=== PATIENT | male | born 1970 | race Caucasian/White ===

== ENCOUNTER 2025-02-18 10:45 | Outpatient (RCR) | payer MEDICAID, SELFPAY ==
[2025-02-04 10:13] VITALS: BP 122/78; PULSE 116; RESP 18; TEMP 36.2; BMI 31.4
--- NOTE | 2025-02-04 12:10 | RAD_ITS ---
EXAM: Left foot radiographs, three views CLINICAL HISTORY: Osteomyelitis. Nonhealing wound medial heel region. COMPARISON: None available TECHNIQUE: Three views of the left foot were obtained. FINDINGS: The bones are osteopenic. Included distal left tibia/fibula are intact. There is chronic appearing fracture deformity of the proximal left 2nd metatarsal. Mild degenerative changes of the interphalangeal joints. No gross bony destructive process or acute fracture of the left foot. Small plantar calcaneal spur. There is suggestion of some air densities projecting over the soft tissues near the plantar margin of the calcaneus and plantar calcaneal spur. RAD/Foot min 3 Views IMPRESSION: Osteopenia. No acute bony abnormality or gross bony destructive process of the left foot. Chronic appearing fracture deformity proximal left 2nd metatarsal. Degenerativ e changes as above. There appear to be some air density projecting over the plantar soft tissues ne ar the left heel region/plantar calcaneal spur. This could potentially be due to gas producing infection or recent penetrating injury. Chest correlation with clinical exam findings. If there is clinical concern for osteomyelitis, MRI evaluation would be suggested. Reading Location: [facility]
--- NOTE | 2025-02-04 13:42 | HP.PCM_ITS ---
History of Present Illness Date of Service: 02/04/25 Chief Complaint: Left medial heel ulceration History of Wound: Patient is a 54-year-old male who was referred to the wound care center by his PCP in [place] for a chronic left medial heel ulceration. Patient states that the ulceration has waxed and waned for 25 years following an old injury to his left foot in which steel sheet-metal was dropped onto his foot and ankle. He did undergo reconstructive surgery at that time to fixated despite initial physician recommendation of BKA. 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 Patient also apparently has had long discussions with his primary care about the possibility of needing bypass to establish blood flow to heal the wound and would need a multiple specialist [facility] in [facility] to achieve healing. Patient also has limitations not wanting to get blood products he needs for major surgery. Patient did have labs performed in [place] prior to visit. States that he had previously was on doxycycline and had completed this. He denies any N/V/F/chills. Denies further complaints. [facility] Home Medications ?Medication ?Instructions ?Recorded ?Last Taken ?Type aspirin 81 mg tablet,delayed 81 mg PO DAILY 02/04/25 U nknown History release diltiazem HCl 240 mg 240 mg PO DAILY 02/04/25 Unk nown History capsule,extended release 24 hr hydrochlorothiazide 25 mg tablet 25 mg PO DAILY Unknown History insulin glargine 100 unit/mL (3 20 unit subcut QHS 08/21 Unknown History mL) subcutaneous pen (Lantus Solostar U-100 Insulin) insulin lispro 100 unit/mL subcut 02/04/25 Unknown His tory subcutaneous pen metformin 1,000 mg tablet 1,000 mg PO BID 02/04/25 Unk nown History metoprolol tartrate 25 mg tablet 25 mg PO BID 02/04/25 Unknown History Allergy/AdvReac Type Severity Reaction Status Date / Time lisinopril Allergy Other Verified 02/04/25 10:34 Social History Smoking Status: Current every day smoker ROS Constitutional Constitutional: Denies anorexia, chills or fever(s) Eyes Eyes: Denies blurry vision, change in vision or double vision ENT HEENT: Denies dysphagia, nasal discharge, sinus pressure or sore throat Cardiovascular Cardiovascular: Denies chest pain, dyspnea or palpitations Respiratory/Chest Respiratory/Chest: Denies cough, shortness of breath at rest or wheezing Gastrointestinal Gastrointestinal: Denies abdominal pain, constipation, diarrhea, nausea or vomiting Genitourinary Genitourinary: Denies dysuria, hematuria, urinary hesitancy or urinary incontinence Musculoskeletal Musculoskeletal: Denies joint pain, joint stiffness or joint swelling Integumentary Integumentary: Denies jaundice, lesions, pruritus or rash Neurologic Neurologic: Denies dizziness, numbness or seizures Psychiatric Psychiatric: Denies anxiety Endocrine Endocrinology: Denies cold intolerance or heat intolerance Hematologic/Lymphatic Hematologic/Lymphatic: Denies easy bleeding or easy bruising Vital Signs Vital Signs Vital Signs: 02/04/25 10:13 Temperature 97.1 F L Temperature Source Temporal Pulse Rate 116 H Respiratory Rate 18 Blood Pressure 122/78 H Blood Pressure Mean 92 Blood Pressure Source Monitor Blood Pressure Position Semi-Fowlers Blood Pressure Location Left Arm Oxygen Delivery Method Room Air Weight Weight: 88.451 kg Body Mass Index (BMI) 31.4 Physical Exam Const alert, oriented x3 and no apparent distress General Appearance: cooperative HEENT normocephalic Eyes General Eye: normal appearance of both eyes Neck General: normal visual inspection Lymph Lymphatic: no lymphadenopathy noted and no lymphedema noted Resp normal respiratory effort Cardio regular rate and regular rhythm Extremity no calf tenderness Extremity Narrative: Left lower extremity: Vascular: DP and PT pulses nonpalpable. Monophasic pulses on Doppler. CFT is delayed and sluggish to digits. Normal temperature gradient. Pedal hair growth is diminished at digits. Neurologic: Gross sensation intact. Protective sensation is diminished consistent with diabetic peripheral polyneuropathy however does still have some sensation about the heel and ulcerative site. Musculoskeletal: Muscle strength 5 of 5 age-appropriate. There is pain to palpation around the ulcerative site at the calcaneus. No pain to palpation of calf. Dermatologic: There is a cicatrix noted along the medial aspect of the ankle consistent with prior surgical reconstruction following his injury. There is a medial calcaneal wall ulceration that extends to the plantar portion of the fat pad near the calcaneal tubercles. Ulceration is full-thickness with mixed necrotic, fibrotic, and granular portions of the wound. There is malodor noted. No soft tissue crepitus to palpation. No purulent drainage is expressible. Wound margins are macerated secondary to continued use of hydrogen peroxide. Ulcerative site does not probe to bone along the plantar medial wall of the calcaneus. Skin no rashes or lesions noted Neuro moves all extremities Debridement Note Debridement Note Wound debrided: Left medial heel Laterality: Left Wound Grade/Stage: Flores stage III Type of Debridement: Excisional debridement Anesthesia Used: 5% Lidocaine Gel Depth: Down to and including healthy tissue, in the subcutaneous layer, to muscle and to bone Percentage of wound debrided: 100 Instrument Used: 7mm curette, #15 blade and Forceps Tissue Removed: Fibrous, devitalized subcutaneous, necrotic tissue, biofilm, slough Severity: Necrosis of Muscle Amount of bleeding with debridement: Mild Bleeding Controlled with: Compression and gauze Patient tolerated procedure: Patient tolerated procedure well Post-Debridement Measurements and Additional Note: Post-Debridement Measurements/Treatment - Nurse 1 - General Ulcer Assessment Start: 02/04/25 10:13 Freq: Status: Active Protocol: [email or web address].ANA Activity Type Activity Date Activity User E-sign Co-sign Detail Recorded Client Recorded Date Recorded By Document 02/04/25 10:13 KW [id number] 02/04/25 10:32 KW 02/04/25 10:13 - Today's Visit Information Type of service Initial Visit Arrival Mode Ambulatory Patient Identification Verified (Name & Yes ) Height and Weight Height 5 ft 6 in Weight 88.451 kg Weight in Pounds 195.0 lbs Weight Measurement Method Estimated by Patient Body Mass Index (BMI) 31.4 BMI Classification Obese Vital Signs Temperature (97.8 F-99.1 F) 97.1 F L Temperature Source Temporal Pulse Rate (60-100) 116 H Pulse Location Monitor Respiratory Rate (12-18) 18 Respiratory rate source Observation Oxygen Delivery Method Room Air Blood Pressure (90/60-120/80) 122/78 H Blood Pressure Mean 92 Source Monitor Position Semi-Fowlers Blood Pressure Location Left Arm History Since Last Visit- (Skip if this is Patient's initial visit) Left Footwear Regular Shoe Right Footwear Regular Shoe Pain Scale: 0-10 Numeric Is Patient Pain Free? No left foot -Intensity 2 -Alleviating Factors/Interventions Inactivity/ Resting,Turning /Repositioning Lower Extremity Assessment/ Foot Assessment/ Toe Nail Assessment Right -Posterior Tibial Doppler Multiphasic -Dorsalis Pedis Doppler Multiphasic -Hair Growth on Legs Yes -Hair Growth on Toes Yes -Temperature of Extremity Cool -Capillary Refill Less than 3 Seconds -Thick No -Discolored Yes -Deformed No -Improper Length & Hygeine Yes Left -Posterior Tibial Doppler Inaudible -Dorsalis Pedis Doppler Inaudible -Hair Growth on Legs Yes -Hair Growth on Toes No -Temperature of Extremity Cool -Capillary Refill Less than 3 Seconds -Thick No -Discolored Yes -Deformed No -Improper Length & Hygeine Yes Communication Assessment Preferred language Thai Compressed Yeast Supervisor Required No Able to Read Yes Able to Write Yes Communication Tools None Caregiver Communication Skills No Impairment Impairment Right Hearing Abillity Normal Left Hearing Abillity Normal Visual Assistive Devices Glasses Teaching Assessment Preferences Verbal,Written, Demonstration Barriers to Learning None Readiness To Learn Excellent Willingness to Engage in Self Management High Activies Readiness to Engage in Self Management High Activities Anxiety Level Calm Cooperation Cooperative Perception Coherent Interest in Health Problem Asks Questions Education Importance Acknowledges Need Does Patient Smoke tobacco or other Yes substances Smoking Status Current every day smoker Is Patient Diabetic Yes Functional Assessment Recent Decline in Ability to Perform Denies Any Declines Culture/Religion/Var[place] Cultural/Religion Needs that may affect No Treatment Plan Would you allow our hospital supervisor grove to No meet you for the purpose of spiritual/ emotional support? Varitypist to contact place of yazidism No WC - Nurse 1 - General Ulcer Measurement Start: 02/04/25 10:13 Freq: Status: Active Protocol: Activity Type Activity Date Activity User E-sign Co-sign Detail Recorded Client Recorded Date Recorded By Document 02/04/25 10:13 KW [id number] 02/04/25 10:32 KW 02/04/25 10:13 Wound Center Nurse 1 1. LT MED HEEL -Current Size (cm) - Length 3.3 -Current Size (cm) - Width 2 -Current Size (cm) - Depth 0.6 -Total Square Cm 6.6 -Date of Last Picture (Recall this 02/04/25 field) -Exudate Amt Large -Exudate Type Serosanguineous -Wound Margin Distinct, Outline Attached -Granulation Amt Small (1-33%) -Granulation Quality Red -Necrosis Amt Large (67-100%) -Necrotic Tissue Type Adherent Slough -Texture (Amena-wound Skin Appearance) Assessed -Moisture (Amena-wound Skin Appearance) Assessed, Maceration -Color (Amena-wound Skin Appearance) Assessed, Erythema -Temperature (Amena-wound Skin No Abnormality Appearance) (Pt Warm) -Tenderness on Palpation (Amena-wound No Skin Appearance) -Ulcer Cleansing Soap and Water -Foul Odor after Cleansing No -Anesthetic Used 5% Lidocaine Gel WC - Nurse 2 - General Ulcer CM Notes Start: 02/04/25 10:13 Freq: Status: Active Protocol: Activity Type Activity Date Activity User E-sign Co-sign Detail Recorded Client Recorded Date Recorded By Document 02/04/25 10:53 [facility] [id number] 02/04/25 11:19 [facility] 02/04/25 10:53 Wound Center Nurse 2 -Time 10:57 -Correct Patient Yes -Correct Side, Site, Position Yes -Correct Procedure Yes -Procedure Performed Yes -Type of Procedure Debridement -Clinical Debridement Bone -Post Debridement (cm) - Length 2 -Post Debridement (cm) - Width 3 -Post Debridement (cm) - Depth 1.3 -Total Square (Post) (cm) 6 -Area of Debridement (cm) - Length 2 -Area of Debridement (cm) - Width 3 -Total Square (Area) (cm) 6 -Tunneling No -Undermining/Tunneling No -Circular Undermining No -Wound/Ulcer Outcome Not Healed -Ulcer Cleansing Rinsed/ Irrigated with Saline -Foul Odor after Cleansing No -Bioengineered Tissue No -Injectable Lidocaine w/ Epi (%) 1 -Bleeding Controlled with Pressure -Treatment Response Procedure Tolerated Well -Debridement - Bone, 1st 20sq cm Yes Pain Scale: 0-10 Numeric Is Patient Pain Free? Yes WC - Nurse 3 - General Ulcer D/C NN Start: 02/04/25 10:13 Freq: Status: Active Protocol: Activity Type Activity Date Activity User E-sign Co-sign Detail Recorded Client Recorded Date Recorded By Document 02/04/25 11:38 [id number] 02/04/25 11:38 02/04/25 11:38 Wound Care Center Nurse 3 1. LT MED HEEL -Other Dressing BETADINE SOAKED GAUZE -Primary Dressing Covered/Secured with Dry Gauze & Roll Gauze, Secured with Tape Pain Scale: 0-10 Numeric Is Patient Pain Free? 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: CODE(S): L97.424 - Non-pressure chronic ulcer of left heel and midfoot with necrosis of bone (2) Diabetes mellitus with diabetic polyneuropathy: CODE(S): E11.42 - Type 2 diabetes mellitus with diabetic polyneuropathy (3) Type 2 diabetes mellitus with foot ulcer: CODE(S): E11.621 - Type 2 diabetes mellitus with foot ulcer; L97.509 - Non-pressure chronic ulcer of other part of unspecified foot with unspecified severity (4) Other specified peripheral vascular diseases: CODE(S): I73.89 - Other specified peripheral vascular diseases (5) CAD (coronary artery disease): CODE(S): I25.10 - Atherosclerotic heart disease of [place] coronary artery without angina pectoris (6) Pseudocyst of pancreas: CODE(S): K86.3 - Pseudocyst of pancreas (7) Alcoholic cirrhosis: CODE(S): K70.30 - Alcoholic cirrhosis of liver without ascites PLAN: Plan Patient seen and evaluated Patient does have history of noncompliance with follow-up with appropriate medical staffing for necessary procedures in addition to his uncontrolled DM type II with recent A1c of 14% Does have 25-year history of waxing waning ulceration at the medial aspect of the left heel. PCP has recommended vascular intervention for likely bypass however patient has yet to follow-up. Predebridement measurement: 1.9 cm x 2.9 cm x 1.3 cm Debridement was performed in the clinical panel above. Debridement was noted to be nonaggressive in nature due to patient's underlying vascular disease. Postdebridement measurement 2.0 cm x 3.0 cm x 1.3 cm. Ulcerative site does probe to bone at the plantar medial aspect of the calcaneal tubercle. Betadine wet-to-dry dressing was placed at the ulcerative site and dressed with dry sterile dressing. He is to continue to change dressing daily. Discussed stopping application of hydrogen peroxide. Discussed washing site with soap and water patting area dry with fresh clean towel/rag and applying the Betadine with a dry dressing. He was sent for radiograph today 02/04/25 of the left foot [facility]. Radiograph demonstrates some air density projecting over the plantar soft tissues near the left heel region/plantar calcaneal spur. This could be potentially due to gas producing infection or recent penetrating injury. Close correlation with clinical exam findings recommended. Radiologist also states that if concern is for osteomyelitis MRI evaluation is recommended. I have independently reviewed the imaging and do concur with the radiographic read. Will place order for MRI to be obtained for further evaluation of the left heel. LEAS was ordered today 02/04/25, awaiting results Will await vascular studies and possible intervention prior to any further debridement. I did discuss with patient at length the need to follow with a vascular surgeon to reestablish blood flow to the lower extremity to aid in allowing for healing of this ulcerative site. I have also discussed the necessary need to follow-up with cardiology for intervention of his coronary artery disease which may likely require stent placing. I have also discussed the need to undergo diet modification and to take the necessary medications to aid in glycemic control to reduce his A1c from 14 to under 7. Discussed this is all necessary to aid in healing and for salvage of his lower extremity. I have discussed with him at length for failure to follow through on these will likely require an amputation of the lower extremity and possibly complicate more proximal amputation healing in addition to undue burden of stress on his heart which will likely lead to his passing. He voices understanding of this, however he has heard this from his PCP and has still not followed up. Discussed signs and symptoms of infection today. Discussed if he notices increasing redness around the ulcerative site that moves up the leg, purulent drainage from the wound site, increasing foul odor from the wound site, or if he experiences fever greater than 101 degree accompanied by nausea, vomiting, chills of these are signs of a progressing infection and he should report to the ED for IV antibiotics and for further evaluation. He voices understanding of this today. The following work up and care recommendations were made: Dressing: Betadine wet-to-dry dressing. Change dressing daily. Wash: Soap and water. Pat area dry with clean cloth. Tissue growth optimization: None Offload: Will wear surgical shoe at all times of ambulation Vascular: PVD, have ordered updated vascular studies awaiting results. Edema: None Infection: No signs of infection currently. Pain: May take [id number] Tylenol for pain Host factors: Noncompliance, CAD, PVD, uncontrolled DM type II I answered all the patient's questions. To return to the wound healing center in 1 week or call sooner if the patient has any questions or concerns.
--- NOTE | 2025-02-08 14:28 | WC ---
PHOTO 02/04/25 LEFT MEDIAL HEEL
[2025-02-11 10:18] VITALS: BP 135/70; PULSE 107; RESP 16; TEMP 35.8; BMI 31.4
--- NOTE | 2025-02-11 13:40 | PN.PCM_ITS ---
History of Present Illness Date of Service: 02/11/25 Chief Complaint: Left medial heel ulceration History of Wound: Patient is a 54-year-old male who was referred to the wound care center by his PCP in [place] for a chronic left medial heel ulceration. Patient states that the ulceration has waxed and waned for 25 years following an old injury to his left foot in which steel sheet-metal was dropped onto his foot and ankle. He did undergo reconstructive surgery at that time to fixated despite initial physician recommendation of BKA. 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 Patient also apparently has had long discussions with his primary care about the possibility of needing bypass to establish blood flow to heal the wound and would need a multiple specialist a [facility] in order to achieve healing. Patient also has limitations not wanting to get blood products he needs for major surgery. Patient did have labs performed in [place] prior to visit. States that he had previously was on doxycycline and had completed this. He denies any N/V/F/chills. Denies further complaints. Subjective Subjective This is a 54-year-old male who returns to wound care center for continued care of the left medial heel ulceration. Patient states that he has finally established appointment with cardiology and a GI specialist. He reports he will have vascular studies performed next , 02/18/2025. He has continued changing his dressings as instructed utilizing Betadine wet-to-dry. Denies constitutional symptoms. Denies further complaints. Objective Data Objective Data Vital Signs: Vital Signs Temp Pulse Resp BP O2 Del Method 96.5 F L 107 H 16 135/70 H Room Air 02/11/25 10:18 02/11/25 10:18 02/11/25 10:18 02/11/25 10:18 02/04/25 10:13 Oxygen Delivery Method Room Air Weight: 88.451 kg Body Mass Index (BMI) 31.4 Physical Exam Const alert, oriented x3 and no apparent distress General Appearance: cooperative HEENT normocephalic Eyes General Eye: normal appearance of both eyes Neck General: normal visual inspection Lymph Lymphatic: no lymphadenopathy noted and no lymphedema noted Resp normal respiratory effort Cardio regular rate and regular rhythm Extremity no calf tenderness Extremity Narrative: Left lower extremity: Vascular: DP and PT pulses nonpalpable. Monophasic pulses on Doppler. CFT is delayed and sluggish to digits. Normal temperature gradient. Pedal hair growth is diminished at digits. Neurologic: Gross sensation intact. Protective sensation is diminished consistent with diabetic peripheral polyneuropathy however does still have some sensation about the heel and ulcerative site. Musculoskeletal: Muscle strength 5 of 5 age-appropriate. There is pain to palpation around the ulcerative site at the calcaneus. No pain to palpation of calf. Dermatologic: There is a cicatrix noted along the medial aspect of the ankle consistent with prior surgical reconstruction following his injury. There is a medial calcaneal wall ulceration that extends to the plantar portion of the fat pad near the calcaneal tubercles. Ulceration is full-thickness with mixed fibrotic and granular portions of the wound. There is no malodor noted today as this is improved versus previous visit. No soft tissue crepitus to palpation. No purulent drainage is expressible. Wound margins are macerated secondary to continued use of hydrogen peroxide but are improving with current Betadine wet-to-dry. Ulcerative site does probe to bone along the plantar medial wall of the calcaneus. Skin no rashes or lesions noted Neuro moves all extremities Debridement Note Debridement Note No debridement was completed: No debridement was completed today Post-Debridement Measurements and Additional Note: Post-Debridement Measurements/Treatment - Nurse 1 - General Ulcer Assessment Start: 02/04/25 10:13 Freq: Status: Active Protocol: [facility] Activity Type Activity Date Activity User E-sign Co-sign Detail Recorded Client Recorded Date Recorded By Document 02/04/25 10:13 KW [id number] 02/04/25 10:32 KW Document 02/11/25 10:18 CP [id number] 02/11/25 10:24 CP 02/04/25 02/11/25 10:13 10:18 - Today's Visit Information Type of service Initial Visit Follow-up Visit (Physician/MANAGEMENT SUPERVISOR ) Arrival Mode Ambulatory Ambulatory Patient Identification Verified (Name & Yes Yes ) Height and Weight Height 5 ft 6 in Weight 88.451 kg Weight in Pounds 195.0 lbs Weight Measurement Method Estimated by Patient Body Mass Index (BMI) 31.4 31.4 BMI Classification Obese Obese Vital Signs Temperature (97.8 F-99.1 F) 97.1 F L 96.5 F L Temperature Source Temporal Temporal Pulse Rate (60-100) 116 H 107 H Pulse Location Monitor Monitor Respiratory Rate (12-18) 18 16 Respiratory rate source Observation Observation Oxygen Delivery Method Room Air Blood Pressure (90/60-120/80) 122/78 H 135/70 H Blood Pressure Mean (mm Hg) 92 91 Source Monitor Monitor Position Semi-Fowlers Sitting Blood Pressure Location Left Arm Left Arm History Since Last Visit- (Skip if this is Patient's initial visit) Have you changed medications since your No last visit? Any new allergies or adverse reactions No Had a fall/change in ADL's that may No increase risk of falls Signs or symptoms of abuse and/or No neglect since last visit Have you been in the hospital since your No last visit? Has dressing in place as prescribed Yes Has compression in place as prescribed N/A Has offloadiing in place as prescribed Yes Left Footwear Regular Shoe Right Footwear Regular Shoe Pain Scale: 0-10 Numeric Is Patient Pain Free? No Yes left foot -Intensity 2 -Alleviating Factors/Interventions Inactivity/ Resting,Turning /Repositioning Lower Extremity Assessment/ Foot Assessment/ Toe Nail Assessment Right -Posterior Tibial Doppler Multiphasic -Dorsalis Pedis Doppler Multiphasic -Hair Growth on Legs Yes -Hair Growth on Toes Yes -Temperature of Extremity Cool -Capillary Refill Less than 3 Seconds -Thick No -Discolored Yes -Deformed No -Improper Length & Hygeine Yes Left -Posterior Tibial Doppler Inaudible -Dorsalis Pedis Doppler Inaudible -Hair Growth on Legs Yes -Hair Growth on Toes No -Temperature of Extremity Cool -Capillary Refill Less than 3 Seconds -Thick No -Discolored Yes -Deformed No -Improper Length & Hygeine Yes Communication Assessment Preferred language Frisian Senior Quality Technician Required No Able to Read Yes Able to Write Yes Communication Tools None Caregiver Communication Skills No Impairment Impairment Right Hearing Abillity Normal Left Hearing Abillity Normal Visual Assistive Devices Glasses Teaching Assessment Preferences Verbal,Written, Demonstration Barriers to Learning None Readiness To Learn Excellent Willingness to Engage in Self Management High Activies Readiness to Engage in Self Management High Activities Anxiety Level Calm Cooperation Cooperative Perception Coherent Interest in Health Problem Asks Questions Education Importance Acknowledges Need Does Patient Smoke tobacco or other Yes substances Smoking Status Current every day smoker Is Patient Diabetic Yes Functional Assessment Recent Decline in Ability to Perform Denies Any Declines Culture/Spiritism/Program Production Specialist Cultural/Spiritism Needs that may affect No Treatment Plan Would you allow our hospital clerical specialist to No meet you for the purpose of spiritual/ emotional support? Program Production Specialist to contact place of yazidi No WC - Nurse 1 - General Ulcer Measurement Start: 02/04/25 10:13 Freq: Status: Active Protocol: Activity Type Activity Date Activity User E-sign Co-sign Detail Recorded Client Recorded Date Recorded By Document 02/04/25 10:13 KW [id number] 02/04/25 10:32 KW Document 02/11/25 10:18 CP [id number] 02/11/25 10:24 CP 02/04/25 02/11/25 10:13 10:18 Wound Center Nurse 1 1. LT MED HEEL -Current Size (cm) - Length 3.3 2 -Current Size (cm) - Width 2 3 -Current Size (cm) - Depth 0.6 1 -Total Square Cm 6.6 6 -Date of Last Picture (Recall this 02/04/25 field) -Epithelialization None Present -Exudate Amt Large Small -Exudate Type Serosanguineous Serosanguineous -Wound Margin Distinct, Flat & Intact Outline Attached -Granulation Amt Small (1-33%) Medium (34-66%) -Granulation Quality [place] -Slough/Fibrin Yes -Necrosis Amt Large (67-100%) Medium (34-66%) -Necrotic Tissue Type Adherent Slough Adherent Slough -Texture (Amena-wound Skin Appearance) Assessed No Abnormality -Moisture (Amena-wound Skin Appearance) Assessed, No Abnormality Maceration -Color (Amena-wound Skin Appearance) Assessed, No Abnormality Erythema -Temperature (Amena-wound Skin No Abnormality No Abnormality Appearance) (Pt Warm) (Pt Warm) -Tenderness on Palpation (Amena-wound No Yes Skin Appearance) -Ulcer Cleansing Soap and Water Rinsed/ Irrigated with Saline -Foul Odor after Cleansing No No -Anesthetic Used 5% Lidocaine 4% Lidocaine Gel Solution WC - Nurse 2 - General Ulcer CM Notes Start: 02/04/25 10:13 Freq: Status: Active Protocol: Activity Type Activity Date Activity User E-sign Co-sign Detail Recorded Client Recorded Date Recorded By Document 02/04/25 10:[address] [facility] [id number] 02/04/25 11:[address] [facility] Document 02/11/25 10:[address] [facility] [id number] 02/11/25 10:[address] [facility] 02/04/25 02/11/25 10:53 10:40 Wound Center Nurse 2 1. LT MED HEEL -Time 10:57 10:42 -Correct Patient Yes -Correct Side, Site, Position Yes -Correct Procedure Yes -Procedure Performed Yes No -Type of Procedure Debridement -Clinical Debridement Bone -Post Debridement (cm) - Length 2 3.2 -Post Debridement (cm) - Width 3 2.3 -Post Debridement (cm) - Depth 1.3 1 -Total Square (Post) (cm) 6 7.36 -Area of Debridement (cm) - Length 2 3.2 -Area of Debridement (cm) - Width 3 2.3 -Total Square (Area) (cm) 6 7.36 -Tunneling No -Undermining/Tunneling No -Circular Undermining No -Wound/Ulcer Outcome Not Healed Not Healed -Ulcer Cleansing Rinsed/ Irrigated with Saline -Foul Odor after Cleansing No -Bioengineered Tissue No -Injectable Lidocaine w/ Epi (%) 1 -Bleeding Controlled with Pressure NA -Treatment Response Procedure Tolerated Well -Debridement - Bone, 1st 20sq cm Yes Pain Scale: 0-10 Numeric Is Patient Pain Free? Yes Yes - Nurse 3 - General Ulcer D/C NN Start: 02/04/25 10:13 Freq: Status: Active Protocol: Activity Type Activity Date Activity User E-sign Co-sign Detail Recorded Client Recorded Date Recorded By Document 02/04/25 11:38 KW [id number] 02/04/25 11:38 KW Document 02/11/25 11:05 CP [id number] 02/11/25 11:05 02/04/25 02/11/25 11:38 11:05 Wound Care Center Nurse 3 1. LT MED HEEL -Other Dressing BETADINE SOAKED betadine gauze GAUZE -Primary Dressing Covered/Secured with Dry Gauze & Dry Gauze & Roll Gauze, Roll Gauze, Secured with Secured with Tape Tape Pain Scale: 0-10 Numeric Is Patient Pain Free? 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: CODE(S): L97.424 - Non-pressure chronic ulcer of left heel and midfoot with necrosis of bone (2) Diabetes mellitus with diabetic polyneuropathy: CODE(S): E11.42 - Type 2 diabetes mellitus with diabetic polyneuropathy (3) Type 2 diabetes mellitus with foot ulcer: CODE(S): E11.621 - Type 2 diabetes mellitus with foot ulcer; L97.509 - Non-pressure chronic ulcer of other part of unspecified foot with unspecified severity (4) Other specified peripheral vascular diseases: CODE(S): I73.89 - Other specified peripheral vascular diseases (5) CAD (coronary artery disease): CODE(S): I25.10 - Atherosclerotic heart disease of [place] coronary artery without angina pectoris (6) Pseudocyst of pancreas: CODE(S): K86.3 - Pseudocyst of pancreas (7) Alcoholic cirrhosis: CODE(S): K70.30 - Alcoholic cirrhosis of liver without ascites PLAN: Plan Patient seen and evaluated Patient does have history of noncompliance with follow-up with appropriate medical staffing for necessary procedures in addition to his uncontrolled DM type II with recent A1c of 14% Does have 25-year history of waxing waning ulceration at the medial aspect of the left heel. PCP has recommended vascular intervention for likely bypass however patient has yet to follow-up. He does inform me today that he is established visit with GI specialist in [place] however this will be in May 2025. Does have upcoming cardiology visit as he is established a provider in [place]. He will have upcoming vascular studies on 02/18/[address] [facility]. I did place referral to Dr. Batista for further evaluation. Predebridement measurement: 3.1 cm x 2.2 cm x 1.0 cm Debridement was not performed as noted in the clinical panel above. Debridement performed on 02/04/25 was noted to be nonaggressive in nature due to patient's underlying vascular disease. Postdebridement measurement 3.2 cm x 2.4 cm x 1.0 cm. Ulcerative site does probe to bone at the plantar medial aspect of the calcaneal tubercle. Betadine wet-to-dry dressing was placed at the ulcerative site and dressed with dry sterile dressing. He is to continue to change dressing daily. Discussed stopping application of hydrogen peroxide. Discussed washing site with soap and water patting area dry with fresh clean towel/rag and applying the Betadine with a dry dressing. He was sent for radiograph today 02/04/[address] left foot [facility]. Radiograph demonstrates some air density projecting over the plantar soft tissues near the left heel region/plantar calcaneal spur. This could be potentially due to gas producing infection or recent penetrating injury. Close correlation with clinical exam findings recommended. Radiologist also states that if concern is for osteomyelitis MRI evaluation is recommended. I have independently reviewed the imaging and do concur with the radiographic read. Order for MRI to be obtained for further evaluation of the left heel was written 02/11/25. LEAS was ordered 02/04/25, awaiting results on 02/18/25 Will await vascular studies and possible intervention prior to any further debridement. I did discuss with patient at length the need to follow with a vascular surgeon to reestablish blood flow to the lower extremity to aid in allowing for healing of this ulcerative site. I have also discussed the necessary need to follow-up with cardiology for intervention of his coronary artery disease which may likely require stent placing. I have also discussed the need to undergo diet modification and to take the necessary medications to aid in glycemic control to reduce his A1c from 14 to under 7. Discussed this is all necessary to aid in healing and for salvage of his lower extremity. I have discussed with him at length for failure to follow through on these will likely require an amputation of the lower extremity and possibly complicate more proximal amputation healing in addition to undue burden of stress on his heart which will likely lead to his passing. He voices understanding of this, however he has heard this from his PCP and has still not followed up. Discussed signs and symptoms of infection today. Discussed if he notices increasing redness around the ulcerative site that moves up the leg, purulent drainage from the wound site, increasing foul odor from the wound site, or if he experiences fever greater than 101 degree accompanied by nausea, vomiting, chills of these are signs of a progressing infection and he should report to the ED for IV antibiotics and for further evaluation. He voices understanding of this today. The following work up and care recommendations were made: Dressing: Betadine wet-to-dry dressing. Change dressing daily. Wash: Soap and water. Pat area dry with clean cloth. Tissue growth optimization: None Offload: Will wear surgical shoe at all times of ambulation Vascular: PVD, have ordered updated vascular studies awaiting results. Edema: None Infection: No signs of infection currently. Pain: May take [id number] Tylenol for pain Host factors: Noncompliance, CAD, PVD, uncontrolled DM type II I answered all the patient's questions. To return to the wound healing center in 1 week or call sooner if the patient has any questions or concerns.
[2025-02-18 10:48] VITALS: BP 146/76; PULSE 109; RESP 18; TEMP 36.4; BMI 31.4
--- NOTE | 2025-02-18 12:26 | PCM.WC.PN ---
History of Present Illness Date of Service: 02/18/25 Chief Complaint: Left medial heel ulceration History of Wound: Patient is a 54-year-old male who was referred to the wound care center by his PCP in [place] for a chronic left medial heel ulceration. Patient states that the ulceration has waxed and waned for 25 years following an old injury to his left foot in which steel sheet-metal was dropped onto his foot and ankle. He did undergo reconstructive surgery at that time to fixated despite initial physician recommendation of BKA. 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 Patient also apparently has had long discussions with his primary care about the possibility of needing bypass to establish blood flow to heal the wound and would need a multiple specialist approach in order to achieve healing. Patient also has limitations not wanting to get blood products he needs for major surgery. Patient did have labs performed in [place] prior to visit. States that he had previously was on doxycycline and had completed this. He denies any N/V/F/chills. Denies further complaints. Subjective Subjective This is a 54-year-old male who returns to wound care center for continued care of the left medial heel ulceration. Patient states that he has finally established appointment with cardiology and a GI specialist. Reports Cardiology appointment next week. He reports he will have vascular studies performed this afternoon , 02/18/2025. Currently awaiting insurance approval for MRI fo the Left foot. He has continued changing his dressings as instructed utilizing Betadine wet-to-dry. Denies constitutional symptoms. Denies further complaints. Objective Data Objective Data Vital Signs: Vital Signs Temp Pulse Resp BP O2 Del Method 97.5 F L 109 H 18 146/76 H Room Air 02/18/25 10:48 02/18/25 10:48 02/18/25 10:48 02/18/25 10:48 02/18/25 10:48 Oxygen Delivery Method Room Air Weight: 88.451 kg Body Mass Index (BMI) 31.4 Physical Exam Const alert, oriented x3 and no apparent distress General Appearance: cooperative HEENT normocephalic Eyes General Eye: normal appearance of both eyes Neck General: normal visual inspection Lymph Lymphatic: no lymphadenopathy noted and no lymphedema noted Resp normal respiratory effort Cardio regular rate and regular rhythm Extremity no calf tenderness Extremity Narrative: Left lower extremity: Vascular: DP and PT pulses nonpalpable. Monophasic pulses on Doppler. CFT is delayed and sluggish to digits. Normal temperature gradient. Pedal hair growth is diminished at digits. Neurologic: Gross sensation intact. Protective sensation is diminished consistent with diabetic peripheral polyneuropathy however does still have some sensation about the heel and ulcerative site. Musculoskeletal: Muscle strength 5 of 5 age-appropriate. There is pain to palpation around the ulcerative site at the calcaneus. No pain to palpation of calf. Dermatologic: There is a cicatrix noted along the medial aspect of the ankle consistent with prior surgical reconstruction following his injury. There is a medial calcaneal wall ulceration that extends to the plantar portion of the fat pad near the calcaneal tubercles. Ulceration is full-thickness with mixed fibrotic and granular portions of the wound. There is no malodor noted today as this is improved versus previous visit. No soft tissue crepitus to palpation. No purulent drainage is expressible. Wound margins are macerated secondary to continued use of hydrogen peroxide but are improving with current Betadine wet-to-dry. Ulcerative site does probe to bone along the plantar medial wall of the calcaneus. Skin no rashes or lesions noted Neuro moves all extremities Debridement Note Debridement Note Wound debrided: Left medial heel Laterality: Left Wound Grade/Stage: Flores stage III Type of Debridement: Excisional debridement Anesthesia Used: 5% Lidocaine Gel Depth: Down to and including healthy tissue, in the subcutaneous layer and to muscle Percentage of wound debrided: 100 Instrument Used: #15 blade and Forceps Tissue Removed: Fibrous, devitalized subcutaneous, biofilm, slough Severity: Fat Layer Exposed Amount of bleeding with debridement: Mild Bleeding Controlled with: Compression and gauze Patient tolerated procedure: Patient tolerated procedure well Post-Debridement Measurements and Additional Note: Post-Debridement Measurements/Treatment EFRA - Nurse 1 - General Ulcer Assessment Start: 02/04/25 10:13 Freq: Status: Active Protocol: [facility] Activity Type Activity Date Activity User E-sign Co-sign Detail Recorded Client Recorded Date Recorded By Document 02/04/25 10:13 [id number] 02/04/25 10:32 KW Document 02/11/25 10:18 CP [id number] 02/11/25 10:24 CP Document 02/18/25 10:48 GM [id number] 02/18/25 10:55 GM 02/04/25 02/11/25 02/18/25 10:13 10:18 10:48 WC - Today's Visit Information Type of service Initial Visit Follow-up Visit Follow-up Visit (Physician/PECAN PICKER (Physician/PECAN PICKER ) ) Arrival Mode Ambulatory Ambulatory Ambulatory Transfer Assistance None Patient Identification Verified (Name & Yes Yes Yes ) Height and Weight Height 5 ft 6 in Weight 88.451 kg Weight in Pounds 195.0 lbs Weight Measurement Method Estimated by Patient Body Mass Index (BMI) 31.4 31.4 31.4 BMI Classification Obese Obese Obese Vital Signs Temperature (97.8 F-99.1 F) 97.1 F L 96.5 F L 97.5 F L Temperature Source Temporal Temporal Temporal Pulse Rate (60-100) 116 H 107 H 109 H Pulse Location Monitor Monitor Monitor Respiratory Rate (12-18) 18 16 18 Respiratory rate source Observation Observation Observation Oxygen Delivery Method Room Air Room Air Blood Pressure (90/60-120/80) 122/78 H 135/70 H 146/76 H Blood Pressure Mean (mm Hg) 92 91 99 Source Monitor Monitor Monitor Position Semi-Fowlers Sitting Sitting Blood Pressure Location Left Arm Left Arm Left Arm History Since Last Visit- (Skip if this is Patient's initial visit) Have you changed medications since your No No last visit? Any new allergies or adverse reactions No No Had a fall/change in ADL's that may No No increase risk of falls Signs or symptoms of abuse and/or No No neglect since last visit Have you been in the hospital since your No No last visit? Has dressing in place as prescribed Yes Yes Has compression in place as prescribed N/A N/A Has offloadiing in place as prescribed Yes Yes Experienced any changes in pain level or No management Left Footwear Regular Shoe Surgical Shoe with pressure relief insole Right Footwear Regular Shoe Pain Scale: 0-10 Numeric Is Patient Pain Free? No Yes Yes left foot -Intensity 2 -Alleviating Factors/Interventions Inactivity/ Resting,Turning /Repositioning Lower Extremity Assessment/ Foot Assessment/ Toe Nail Assessment Right -Posterior Tibial Doppler Multiphasic -Dorsalis Pedis Doppler Multiphasic -Hair Growth on Legs Yes -Hair Growth on Toes Yes -Temperature of Extremity Cool -Capillary Refill Less than 3 Seconds -Thick No -Discolored Yes -Deformed No -Improper Length & Hygeine Yes Left -Posterior Tibial Doppler Inaudible -Dorsalis Pedis Doppler Inaudible -Hair Growth on Legs Yes -Hair Growth on Toes No -Temperature of Extremity Cool -Capillary Refill Less than 3 Seconds -Thick No -Discolored Yes -Deformed No -Improper Length & Hygeine Yes Communication Assessment Preferred language Maltese Cook Candy Required No Able to Read Yes Able to Write Yes Communication Tools None Caregiver Communication Skills No Impairment Impairment Right Hearing Abillity Normal Left Hearing Abillity Normal Visual Assistive Devices Glasses Teaching Assessment Preferences Verbal,Written, Demonstration Barriers to Learning None Readiness To Learn Excellent Willingness to Engage in Self Management High Activies Readiness to Engage in Self Management High Activities Anxiety Level Calm Cooperation Cooperative Perception Coherent Interest in Health Problem Asks Questions Education Importance Acknowledges Need Does Patient Smoke tobacco or other Yes substances Smoking Status Current every day smoker Is Patient Diabetic Yes Functional Assessment Recent Decline in Ability to Perform Denies Any Declines Culture/Spiritism/Green Marketing Analyst Cultural/Spiritism Needs that may affect No Treatment Plan Would you allow our hospital extruder tender to No meet you for the purpose of spiritual/ emotional support? Green Marketing Analyst to contact place of confucianist No WC - Nurse 1 - General Ulcer Measurement Start: 02/04/25 10:13 Freq: Status: Active Protocol: Activity Type Activity Date Activity User E-sign Co-sign Detail Recorded Client Recorded Date Recorded By Document 02/04/25 10:13 KW [id number] 02/04/25 10:32 KW Document 02/11/25 10:18 CP [id number] 02/11/25 10:24 CP Document 02/18/25 10:48 GM [id number] 02/18/25 10:55 GM 02/04/25 02/11/25 02/18/25 10:13 10:18 10:48 Wound Center Nurse 1 1. LT MED HEEL -Combined with other wound No -Current Size (cm) - Length 3.3 2 2.5 -Current Size (cm) - Width 2 3 3.2 -Current Size (cm) - Depth 0.6 1 0.2 -Total Square Cm 6.6 6 8.00 -Date of Last Picture (Recall this 02/04/25 field) -Photo Taken No -Epithelialization None Present -Circular Undermining Yes -Exudate Amt Large Small Medium -Exudate Type Serosanguineous Serosanguineous Serosanguineous -Wound Margin Distinct, Flat & Intact Thickened & Outline Rolled Under Attached -Granulation Amt Small (1-33%) Medium (34-66%) Medium (34-66%) -Granulation Quality [place] -Slough/Fibrin Yes Yes -Necrosis Amt Large (67-100%) Medium (34-66%) Small (1-33%) -Necrotic Tissue Type Adherent Slough Adherent Slough Adherent Slough -Texture (Amena-wound Skin Appearance) Assessed No Abnormality Assessed -Moisture (Amena-wound Skin Appearance) Assessed, No Abnormality Assessed Maceration -Color (Amena-wound Skin Appearance) Assessed, No Abnormality Assessed Erythema -Temperature (Amena-wound Skin No Abnormality No Abnormality No Abnormality Appearance) (Pt Warm) (Pt Warm) (Pt Warm) -Tenderness on Palpation (Amena-wound No Yes Yes Skin Appearance) -Ulcer Cleansing Soap and Water Rinsed/ Soap and Water Irrigated with Saline -Foul Odor after Cleansing No No No -Anesthetic Used 5% Lidocaine 4% Lidocaine 5% Lidocaine Gel Solution Gel WC - Nurse 2 - General Ulcer CM Notes Start: 02/04/25 10:13 Freq: Status: Active Protocol: Activity Type Activity Date Activity User E-sign Co-sign Detail Recorded Client Recorded Date Recorded By Document 02/04/25 10:53 [facility] [id number] 02/04/25 11:19 [facility] Document 02/11/25 10:40 [facility] [id number] 02/11/25 10:53 [facility] Document 02/18/25 11:14 [facility] [id number] 02/18/25 11:23 [facility] 02/04/25 02/11/25 02/18/25 10:53 10:40 11:14 Wound Center Nurse 2 1. LT MED HEEL -Time 10:57 10:42 11:14 -Correct Patient Yes Yes -Correct Side, Site, Position Yes Yes -Correct Procedure Yes Yes -Procedure Performed Yes No Yes -Type of Procedure Debridement Debridement -Clinical Debridement Bone -Post Debridement (cm) - Length 2 3.2 3.6 -Post Debridement (cm) - Width 3 2.3 2.6 -Post Debridement (cm) - Depth 1.3 1 1 -Total Square (Post) (cm) 6 7.36 9.36 -Area of Debridement (cm) - Length 2 3.2 3.6 -Area of Debridement (cm) - Width 3 2.3 2.6 -Total Square (Area) (cm) 6 7.36 9.36 -Tunneling No No -Undermining/Tunneling No No -Circular Undermining No -Wound/Ulcer Outcome Not Healed Not Healed Not Healed -Ulcer Cleansing Rinsed/ Rinsed/ Irrigated with Irrigated with Saline Saline -Foul Odor after Cleansing No No -Bioengineered Tissue No No -Injectable Lidocaine w/ Epi (%) 1 -Bleeding Controlled with Pressure NA Pressure -Treatment Response Procedure Procedure Tolerated Well Tolerated Well -Debridement - Muscle / Fascia, 1st Yes 20sq cm -Debridement - Bone, 1st 20sq cm Yes Pain Scale: 0-10 Numeric Is Patient Pain Free? Yes Yes Yes - Nurse 3 - General Ulcer D/C NN Start: 02/04/25 10:13 Freq: Status: Active Protocol: Activity Type Activity Date Activity User E-sign Co-sign Detail Recorded Client Recorded Date Recorded By Document 02/04/25 11:38 KW [id number] 02/04/25 11:38 KW Document 02/11/25 11:05 CP [id number] 02/11/25 11:05 CP Document 02/18/25 11:33 MT [id number] 02/18/25 11:35 MT 02/04/25 02/11/25 02/18/25 11:38 11:05 11:33 Wound Care Center Nurse 3 1. LT MED HEEL -Primary Dressing Applied Hysept -Other Dressing BETADINE SOAKED betadine gauze GAUZE -Primary Dressing Covered/Secured with Dry Gauze & Dry Gauze & Dry Gauze & Roll Gauze, Roll Gauze, Roll Gauze, Secured with Secured with Secured with Tape Tape Tape -Hysept 1 Pain Scale: 0-10 Numeric Is Patient Pain Free? 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: CODE(S): L97.424 - Non-pressure chronic ulcer of left heel and midfoot with necrosis of bone (2) Diabetes mellitus with diabetic polyneuropathy: CODE(S): E11.42 - Type 2 diabetes mellitus with diabetic polyneuropathy (3) Type 2 diabetes mellitus with foot ulcer: CODE(S): E11.621 - Type 2 diabetes mellitus with foot ulcer; L97.509 - Non-pressure chronic ulcer of other part of unspecified foot with unspecified severity (4) Other specified peripheral vascular diseases: CODE(S): I73.89 - Other specified peripheral vascular diseases (5) CAD (coronary artery disease): CODE(S): I25.10 - Atherosclerotic heart disease of [place] coronary artery without angina pectoris (6) Pseudocyst of pancreas: CODE(S): K86.3 - Pseudocyst of pancreas (7) Alcoholic cirrhosis: CODE(S): K70.30 - Alcoholic cirrhosis of liver without ascites PLAN: Plan Patient seen and evaluated Patient does have history of noncompliance with follow-up with appropriate medical staffing for necessary procedures in addition to his uncontrolled DM type II with recent A1c of 14% Does have 25-year history of waxing waning ulceration at the medial aspect of the left heel. PCP has recommended vascular intervention for likely bypass however patient has yet to follow-up. He does inform me today that he is established visit with GI specialist in [place] however this will be in May 2025. Does have upcoming cardiology visit as he is established a provider in [place]. He will have upcoming vascular studies on 02/18/2025 at [facility]. I did place referral to Dr. Batista for further evaluation. Predebridement measurement: 3.5 cm x 2.5 cm x 1.0 cm Debridement was performed as noted in the clinical panel above. Debridement performed today was noted to be nonaggressive in nature due to patient's underlying vascular disease. Postdebridement measurement 3.6 cm x 2.6 cm x 1.0 cm. Ulcerative site does probe to bone at the plantar medial aspect of the calcaneal tubercle. There is increase in size of ulceration versus previous visit. Dakin's wet-to-dry dressing was placed at the ulcerative site and dressed with dry sterile dressing. He is to continue to change dressing daily. We have previously discussed stopping application of hydrogen peroxide. Discussed washing site with soap and water patting area dry with fresh clean towel/rag and applying the Dakin's wet to dry dressing He was sent for radiograph 02/04/25 of the left foot [facility]. Radiograph demonstrates some air density projecting over the plantar soft tissues near the left heel region/plantar calcaneal spur. This could be potentially due to gas producing infection or recent penetrating injury. Close correlation with clinical exam findings recommended. Radiologist also states that if concern is for osteomyelitis MRI evaluation is recommended. I have independently reviewed the imaging and do concur with the radiographic read. Order for MRI to be obtained for further evaluation of the left heel was written 02/11/25, awaiting insurance approval. LEAS was ordered 02/04/25, awaiting results on 02/18/25 Will await vascular studies and possible intervention prior to any further debridement. He will then follow with Dr. Batista with appointment tomorrow, 02/19/25 to discuss vascular studies. I did discuss with patient at length the need to follow with a vascular surgeon to reestablish blood flow to the lower extremity to aid in allowing for healing of this ulcerative site. I have also discussed the necessary need to follow-up with cardiology for intervention of his coronary artery disease which may likely require stent placing. I have also discussed the need to undergo diet modification and to take the necessary medications to aid in glycemic control to reduce his A1c from 14 to under 7. Discussed this is all necessary to aid in healing and for salvage of his lower extremity. I have discussed with him at length for failure to follow through on these will likely require an amputation of the lower extremity and possibly complicate more proximal amputation healing in addition to undue burden of stress on his heart which will likely lead to his passing. He voices understanding of this, however he has heard this from his PCP and has still not followed up as of 02/04/2025. He does report today that he has now established cardiology visit and will be seen tomorrow 02/19/2025. Will follow-up with vascular as stated above. Discussed signs and symptoms of infection today. Discussed if he notices increasing redness around the ulcerative site that moves up the leg, purulent drainage from the wound site, increasing foul odor from the wound site, or if he experiences fever greater than 101 degree accompanied by nausea, vomiting, chills of these are signs of a progressing infection and he should report to the ED for IV antibiotics and for further evaluation. He voices understanding of this today. The following work up and care recommendations were made: Dressing: Dakin's wet-to-dry dressing. Change dressing daily. Wash: Soap and water. Pat area dry with clean cloth. Tissue growth optimization: None Offload: Will wear surgical shoe at all times of ambulation Vascular: PVD, have ordered updated vascular studies awaiting results. Edema: None Infection: No signs of infection currently. Pain: May take [id number] Tylenol for pain Host factors: Noncompliance, CAD, PVD, uncontrolled DM type II I answered all the patient's questions. To return to the wound healing center in 1 week or call sooner if the patient has any questions or concerns.
--- NOTE | 2025-02-18 13:46 | VDLE_ITS ---
Reason For Study Reason For Study: LLE Wound RIGHT LEFT GSV is normal. GSV is normal. CFV is compressible, spontaneous, phasic, competent CFV is compressible, spontaneous, phasic, competent, and demonstrates normal augmentation. and demonstrates normal augmentation. FV is compressible, spontaneous, phasic, competent FV is compressible, spontaneous, phasic, competent and demonstrates normal augmentation. and demonstrates normal augmentation. POP V is compressible, spontaneous, phasic, competent POP V is compressible, spontaneous, phasic, competent and demonstrates normal augmentation. and demonstrates normal augmentation. T/P Trunk is compressible. T/P Trunk is compressible. PTV is compressible. PTV is compressible. RT PerV is compressible. LT PerV is compressible. Procedure This is a venous duplex using B-mode, color flow and spectral Doppler. Exam performed in department. The exam was diagnostic. VL/Venous Duplex US - Mati Extrem Interpretation Summary Deep veins of the lower extremities are bilaterally patent and compressible seg mentally. There is no evidence of deep vein thrombosis on either side. Valvular competence appears intact within the p roximal deep venous systems bilaterally. The great saphenous veins appear bilaterally patent and compressible segmentall y. Ordering Physician: Wilder Haas Referring Physician: Lalit Sharif Performed By: Chas Ayala RVT
--- NOTE | 2025-02-18 13:46 | ART_ITS ---
Reason For Study Reason For Study: LLE WOund Procedure A bilateral lower extremity continuous wave Doppler with analog waveform analysis,segmental pressures,and ankle brachial indexes without exercise. Left Segmental Pressures Left brachial= 117mmHg. Left low thigh = 74mmHg. Left calf = 68mmHg. Left posterior tibial artery = 59mmHg. Left dorsalis pedis artery = 52mmHg. The left posterior tibial artery waveforms are monophasic. The left dorsalis pedis waveforms are monophasic. Right Segmental Pressures Right brachial= 112mmHg. Right low thigh = 113mmHg. Right calf = 94mmHg. Right dorsalis pedis artery = 94mmHg. Right posterior tibial artery = 94mmHg. Right digit = 61 mmHg. The right posterior tibial artery waveforms are biphasic. The right dorsalis pedis waveforms are triphasic. Indices The right ankle brachial index by the posterior tibial artery is 0.80. The right ankle brachial index by the dorsalis pedis is 0.80. The right digital-brachial index is 0.52. The left ankle brachial index by the posterior tibial artery is 0.50. The left ankle brachial index by the dorsalis pedis is 0.44. Unable to obtain toe pressure. VL/Lower Ext Art Exam w/o Exercis Interpretation Summary Biphasic and triphasic Doppler waveforms are noted at ankle level on the right. Monophasic Doppler waveforms are noted at ankle level on the left. Pulse-volume recordings appear diminished at calf, ankle, and digital levels on the left. The resting right ankle-brachial index is moderately diminished. The resting le ft ankle-brachial index is severely diminished. The right digital-brachial index is mildly diminished. The left dig ital-brachial index was not determined due to a lack of detectable pressure at digital level on the left. There is evidence of mild-moderate arterial occlusive disease in the right lowe r extremity. There is evidence of severe arterial occlusive disease in the left lower extremity, with a non-detectable l eft digital pulse. Ordering Physician: Wilder Haas Referring Physician: Lalit Sharif Performed By: Chas Ayala RVT
== END 2025-02-24 23:59 | disposition home or self-care (01) ==
LOC: WC 10:45
PROVIDERS: PCP Family Medicine; Referring Provider Family Medicine; Visit Provider Student in an Organized Health Care Education/Training Program
DX: E11.621 Type 2 diabetes mellitus with foot ulcer (principal); L97.423 Non-pressure chronic ulcer of left heel and midfoot with necrosis of muscle; L97.422 Non-pressure chronic ulcer of left heel and midfoot with fat layer exposed; K70.30 Alcoholic cirrhosis of liver without ascites; E11.51 Type 2 diabetes mellitus with diabetic peripheral angiopathy without gangrene; Z79.4 Long term (current) use of insulin; E11.42 Type 2 diabetes mellitus with diabetic polyneuropathy; Z79.82 Long term (current) use of aspirin; Z79.84 Long term (current) use of oral hypoglycemic drugs; K86.3 Pseudocyst of pancreas; F17.200 Nicotine dependence, unspecified, uncomplicated; I25.10 Atherosclerotic heart disease of native coronary artery without angina pectoris; I10 Essential (primary) hypertension; E78.5 Hyperlipidemia, unspecified; Z79.899 Other long term (current) drug therapy
CPT/HCPCS: 11043; 11044; 73630; 93923; 93970; 99213; 99214; G0463

== ENCOUNTER → 2025-02-26 | Outpatient (CLI) | payer MEDICAID, SELFPAY ==
--- NOTE | 2025-02-26 14:30 | MRI_ITS ---
EXAM: MRI left ankle with/without contrast CLINICAL HISTORY: Nonhealing ulcer of heel. COMPARISON: None. TECHNIQUE: Multiplanar multisequence MRI of the left ankle/hindfoot before and after IV gadolinium infusion (17 mL Clariscan) FINDINGS: Large medial sided heel ulcer measuring 2.8 cm craniocaudally and 3.4 cm in AP dimension. Approximately 6 mm in depth. At the medial/posterior calcaneus is a small 1 cm area of edema suggesting either reactive osteitis or very early changes of osteomyelitis. No definite corresponding T1 hypointensity although this area is quite small for evaluation. No cortex destruction. Marrow signal is otherwise unremarkable. No occult fracture. Degenerative changes of the 1st, 2nd, and 3rd tarsometatarsal joints. The medial flexor tendons near this ulcer are unremarkable. No tenosynovitis. The peroneal tendons are unremarkable. Inferior tibiofibular ligaments are intact. Talofibular ligaments are intact. The Achilles is unremarkable. Plantar fascia is intact. No ankle joint effusion. No abscess identified. MRI/Lower Ext No Joint W/WO Cont IMPRESSION: Large medial sided heel ulcer without soft tissue abscess. Minimal 1 cm area o f calcaneal edema at the medial plantar fascia attachment. I can not determine if this is reactive osteitis or very early josephine nge of osteomyelitis. The medial flexor tendons are unremarkable without tear or tenosynovitis. Reading Location: [facility]
== END | disposition home or self-care (01) ==
LOC: MRI 14:26
PROVIDERS: PCP Family Medicine; Referring Provider Student in an Organized Health Care Education/Training Program; Visit Provider Student in an Organized Health Care Education/Training Program
DX: I73.89 Other specified peripheral vascular diseases (principal); L97.524 Non-pressure chronic ulcer of other part of left foot with necrosis of bone
CPT/HCPCS: 73720; A9575

== ENCOUNTER 2025-03-25 10:15 | Outpatient (RCR) | payer MEDICAID, SELFPAY ==
[2025-02-25 00:21] VITALS: BP 146/76; PULSE 109; RESP 18; TEMP 36.4; BMI 31.4
[2025-02-25 10:07] VITALS: BP 120/77; PULSE 104; RESP 18; TEMP 36.2; BMI 31.4
--- NOTE | 2025-02-25 12:41 | PN.PCM_ITS ---
History of Present Illness Date of Service: 02/25/25 Chief Complaint: Left medial heel ulceration History of Wound: Patient is a 54-year-old male who was referred to the wound care center by his PCP in [place] for a chronic left medial heel ulceration. Patient states that the ulceration has waxed and waned for 25 years following an old injury to his left foot in which steel sheet-metal was dropped onto his foot and ankle. He did undergo reconstructive surgery at that time to fixated despite initial physician recommendation of BKA. 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 Patient also apparently has had long discussions with his primary care about the possibility of needing bypass to establish blood flow to heal the wound and would need a multiple specialist a [facility] in order to achieve healing. Patient also has limitations not wanting to get blood products he needs for major surgery. Patient did have labs performed in [place] prior to visit. States that he had previously was on doxycycline and had completed this. He denies any N/V/F/chills. Denies further complaints. Subjective Subjective This is a 54-year-old male who returns to wound care center for continued care of the left medial heel ulceration. Patient states that he has established appointment with cardiology and a GI specialist. Reported Cardiology last week and did see GI specialist who recommends CT for further evaluation. He did undergo vascular studies , 02/18/2025. He has been approved for MRI fo the Left foot. He has continued changing his dressings as instructed utilizing Betadine wet-to-dry following Dakin's wash. Denies constitutional symptoms. Denies further complaints. Objective Data Objective Data Vital Signs: Vital Signs Temp Pulse Resp BP 97.2 F L 104 H 18 120/77 02/25/25 10:07 02/25/25 10:07 02/25/25 10:02/25/25 10:07 Weight: 88.451 kg Body Mass Index (BMI) 31.4 Physical Exam Const alert, oriented x3 and no apparent distress General Appearance: cooperative HEENT normocephalic Eyes General Eye: normal appearance of both eyes Neck General: normal visual inspection Lymph Lymphatic: no lymphadenopathy noted and no lymphedema noted Resp normal respiratory effort Cardio regular rate and regular rhythm Extremity no calf tenderness Extremity Narrative: Left lower extremity: Vascular: DP and PT pulses nonpalpable. Monophasic pulses on Doppler. CFT is delayed and sluggish to digits. Normal temperature gradient. Pedal hair growth is diminished at digits. Neurologic: Gross sensation intact. Protective sensation is diminished consistent with diabetic peripheral polyneuropathy however does still have some sensation about the heel and ulcerative site. Musculoskeletal: Muscle strength 5 of 5 age-appropriate. There is pain to palpation around the ulcerative site at the calcaneus. No pain to palpation of calf. Dermatologic: There is a cicatrix noted along the medial aspect of the ankle consistent with prior surgical reconstruction following his injury. There is a medial calcaneal wall ulceration that extends to the plantar portion of the fat pad near the calcaneal tubercles. Ulceration is full-thickness with mixed fibrotic and granular portions of the wound. There is no malodor noted today as this is improved from prior visits. No soft tissue crepitus to palpation. No purulent drainage is expressible. Wound margins are macerated secondary to previous use of hydrogen peroxide and serosanginous drainage but are improving with current Betadine wet-to-dry. Ulcerative site does probe to bone along the plantar medial wall of the calcaneus. Skin no rashes or lesions noted Neuro moves all extremities Debridement Note Debridement Note No debridement was completed: No debridement was completed today Post-Debridement Measurements and Additional Note: Post-Debridement Measurements/Treatment - Nurse 1 - General Ulcer Assessment Start: 02/25/25 10:06 Freq: Status: Active Protocol: [facility] Activity Type Activity Date Activity User E-sign Co-sign Detail Recorded Client Recorded Date Recorded By Document 02/25/25 10:07 DL [id number] 02/25/25 10:14 DL 02/25/25 10:07 - Today's Visit Information Type of service Follow-up Visit (Physician/DATABASE PROGRAMMER ANALYST ) Arrival Mode Ambulatory, Crutches Transfer Assistance None Patient Identification Verified (Name & Yes ) Patient Requires Transmission-Based No Precautions Height and Weight Body Mass Index (BMI) 31.4 BMI Classification Obese Vital Signs Temperature (97.8 F-99.1 F) 97.2 F L Temperature Source Temporal Pulse Rate (60-100) 104 H Pulse Location Monitor Respiratory Rate (12-18) 18 Respiratory rate source Observation Blood Pressure (90/60-120/80) 120/77 Blood Pressure Mean (mm Hg) 91 Source Monitor History Since Last Visit- (Skip if this is Patient's initial visit) Have you changed medications since your No last visit? Any new allergies or adverse reactions No Had a fall/change in ADL's that may No increase risk of falls Signs or symptoms of abuse and/or No neglect since last visit Have you been in the hospital since your No last visit? Has dressing in place as prescribed Yes Has compression in place as prescribed N/A Has offloadiing in place as prescribed Yes Experienced any changes in pain level or No management Pain Scale: 0-10 Numeric Is Patient Pain Free? Yes EFRA - Nurse 1 - General Ulcer Measurement Start: 02/25/25 10:06 Freq: Status: Active Protocol: Activity Type Activity Date Activity User E-sign Co-sign Detail Recorded Client Recorded Date Recorded By Document 02/25/25 10:07 DL [id number] 02/25/25 10:14 DL 02/25/25 10:07 Wound Center Nurse 1 1. LT MED HEEL -Current Size (cm) - Length 2.4 -Current Size (cm) - Width 3.8 -Current Size (cm) - Depth 0.6 -Total Square Cm 9.12 -Photo Taken Yes -Exudate Amt Large -Exudate Type Serosanguineous -Wound Margin Thickened & Rolled Under -Granulation Amt Large (67-100%) -Granulation Quality Gage,Red -Necrosis Amt Small (1-33%) -Necrotic Tissue Type Adherent Slough -Structure Exposed N/A -Texture (Amena-wound Skin Appearance) Localized Edema ,Scarring -Moisture (Amena-wound Skin Appearance) No Abnormality -Color (Amena-wound Skin Appearance) No Abnormality -Temperature (Amena-wound Skin No Abnormality Appearance) (Pt Warm) -Tenderness on Palpation (Amena-wound Yes Skin Appearance) -Ulcer Cleansing Soap and Water -Foul Odor after Cleansing No -Anesthetic Used 4% Lidocaine Solution EFRA - Nurse 2 - General Ulcer CM Notes Start: 02/25/25 10:06 Freq: Status: Active Protocol: Activity Type Activity Date Activity User E-sign Co-sign Detail Recorded Client Recorded Date Recorded By Document 02/25/25 10:33 [facility] [id number] 02/25/25 10:45 [facility] 02/25/25 10:33 Wound Center Nurse 2 -Time 10:33 -Procedure Performed No -Post Debridement (cm) - Length 3.7 -Post Debridement (cm) - Width 2.7 -Post Debridement (cm) - Depth 1 -Total Square (Post) (cm) 9.99 -Area of Debridement (cm) - Length 3.7 -Area of Debridement (cm) - Width 2.7 -Total Square (Area) (cm) 9.99 -Tunneling No -Undermining/Tunneling No -Circular Undermining No -Wound/Ulcer Outcome Not Healed -Foul Odor after Cleansing No -Bleeding Controlled with NA Pain Scale: 0-10 Numeric Is Patient Pain Free? Yes - Nurse 3 - General Ulcer D/C NN Start: 02/25/25 10:06 Freq: Status: Active Protocol: Activity Type Activity Date Activity User E-sign Co-sign Detail Recorded Client Recorded Date Recorded By Document 02/25/25 10:51 DL [id number] 02/25/25 10:53 DL 02/25/25 10:51 Wound Care Center Nurse 3 1. LT MED HEEL -Ulcer Cleansing dakins -Foul Odor after Cleansing No -Other Dressing Betadine -Primary Dressing Covered/Secured with Dry Gauze & Roll Gauze, Secured with Tape Treatment Response Procedure Tolerated Well Pain Scale: 0-10 Numeric Is Patient Pain Free? 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: CODE(S): L97.424 - Non-pressure chronic ulcer of left heel and midfoot with necrosis of bone (2) Diabetes mellitus with diabetic polyneuropathy: CODE(S): E11.42 - Type 2 diabetes mellitus with diabetic polyneuropathy (3) Type 2 diabetes mellitus with foot ulcer: CODE(S): E11.621 - Type 2 diabetes mellitus with foot ulcer; L97.509 - Non-pressure chronic ulcer of other part of unspecified foot with unspecified severity (4) Other specified peripheral vascular diseases: CODE(S): I73.89 - Other specified peripheral vascular diseases (5) CAD (coronary artery disease): CODE(S): I25.10 - Atherosclerotic heart disease of [place] coronary artery without angina pectoris (6) Alcoholic cirrhosis: CODE(S): K70.30 - Alcoholic cirrhosis of liver without ascites (7) Atherosclerosis of left lower extremity with ulceration: CODE(S): I70.249 - Atherosclerosis of [place] arteries of left leg with ulceration of unspecified site PLAN: Plan Patient seen and evaluated Patient does have history of noncompliance with follow-up with appropriate medical staffing for necessary procedures in addition to his uncontrolled DM type II with recent A1c of 14% Does have 25-year history of waxing waning ulceration at the medial aspect of the left heel. PCP has recommended vascular intervention for likely bypass however patient has yet to follow-up. He does inform me today that he is established visit with GI specialist in [place] however this will be in May 2025. Does have upcoming cardiology visit as he is established a provider in [place]. He will have upcoming vascular studies on 02/18/2025 at [facility]. I did place referral to Dr. Batista for further evaluation, and he did follow-up. Predebridement measurement: 3.7 cm x 2.7 cm x 1.0 cm Debridement was not performed as noted in the clinical panel above. Debridement performed at previous visit was noted to be nonaggressive in nature due to patient's underlying vascular disease. Postdebridement measurement 3.7 cm x 2.7 cm x 1.0 cm. Ulcerative site does probe to bone at the plantar medial aspect of the calcaneal tubercle. There is increase in size of ulceration versus previous visit. Dakin's wash performed at the ulcerative site and dressed with Betadine wet to dry dressing with dry sterile dressing. He is to continue to change dressing daily. We have previously discussed stopping application of hydrogen peroxide. Discussed washing site with soap and water patting area dry with fresh clean towel/rag followed with Dakin's wash flushed by normal sterile saline. He may then continue betadine wet to dry dressing. He was sent for radiograph 02/04/25 of the left foot [facility]. Radiograph demonstrates some air density projecting over the plantar soft tissues near the left heel region/plantar calcaneal spur. This could be potentially due to gas producing infection or recent penetrating injury. Close correlation with clinical exam findings recommended. Radiologist also states that if concern is for osteomyelitis MRI evaluation is recommended. I have independently reviewed the imaging and do concur with the radiographic read. Order for MRI to be obtained for further evaluation of the left heel was written 02/11/25, this has been approved and he will undergo MRI on 03/02/2025 LEAS was ordered. LEAS demonstrate right DP waveform triphasic and PT waveform biphasic, right KESHIA 1.12, right PT indices 0.80, DP indices 0.80, right digital indices 0.52; left PT artery waveforms are monophasic and the left DP waveforms are monophasic, left KESHIA 1.17, l left PT indices 0.50, left DP indices 0.44, unable to obtain digital pressure. 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 Venous studies were negative for DVT. No evidence of reflux or valvular incompetence. He did see Dr. Batista on 02/19/25 to discuss vascular studies. They are recommending CTA abdominal pelvis with runoff to evaluate for atherosclerotic burden and determine interventional options pending recent kidney function lab. Vascular also awaiting further cardiology analysis and are refraining from initiation of Pletal at this time until status can be given. He is can to continue ASA daily. Given patient's insufficient blood supply to allow for healing, aggressive debridement is not recommended at this time. I did discuss with patient at length the need to follow with a vascular surgeon to reestablish blood flow to the lower extremity to aid in allowing for healing of this ulcerative site. I have also discussed the necessary need to follow-up with cardiology for intervention of his coronary artery disease which may likely require stent placing. I have also discussed the need to undergo diet modification and to take the necessary medications to aid in glycemic control to reduce his A1c from 14 to under 7. Discussed this is all necessary to aid in healing and for salvage of his lower extremity. I have discussed with him at length for failure to follow through on these will likely require an amputation of the lower extremity and possibly complicate more proximal amputation healing in addition to undue burden of stress on his heart which will likely lead to his passing. He voices understanding of this, however he has heard this from his PCP and has still not followed up as of 02/04/2025. He does report today that he has now established cardiology visit and was seen 02/19/2025. Will follow-up with vascular as stated above. Discussed signs and symptoms of infection today. Discussed if he notices increasing redness around the ulcerative site that moves up the leg, purulent drainage from the wound site, increasing foul odor from the wound site, or if he experiences fever greater than 101 degree accompanied by nausea, vomiting, chills of these are signs of a progressing infection and he should report to the ED for IV antibiotics and for further evaluation. He voices understanding of this today. The following work up and care recommendations were made: Dressing: Wash site with Dakin's followed by normal sterile saline flush. Then apply Betadine wet-to-dry dressing. Change dressing daily. Wash: Soap and water. Pat area dry with clean cloth. Tissue growth optimization: None Offload: Will wear surgical shoe at all times of ambulation Vascular: PVD, have ordered updated vascular studies awaiting results. Edema: None Infection: No signs of infection currently. Pain: May take [id number] Tylenol for pain Host factors: Noncompliance, CAD, PVD, uncontrolled DM type II I answered all the patient's questions. To return to the wound healing center in 1 week or call sooner if the patient has any questions or concerns.
[2025-03-04 10:13] VITALS: BP 153/89; PULSE 107; RESP 18; TEMP 35.9; BMI 31.4
--- NOTE | 2025-03-04 12:57 | PN.PCM_ITS ---
History of Present Illness Date of Service: 03/04/25 Chief Complaint: Left medial heel ulceration History of Wound: Patient is a 54-year-old male who was referred to the wound care center by his PCP in [place] for a chronic left medial heel ulceration. Patient states that the ulceration has waxed and waned for 25 years following an old injury to his left foot in which steel sheet-metal was dropped onto his foot and ankle. He did undergo reconstructive surgery at that time to fixated despite initial physician recommendation of BKA. 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 Patient also apparently has had long discussions with his primary care about the possibility of needing bypass to establish blood flow to heal the wound and would need a multiple specialist a [facility] in order to achieve healing. Patient also has limitations not wanting to get blood products he needs for major surgery. Patient did have labs performed in [place] prior to visit. States that he had previously was on doxycycline and had completed this. He denies any N/V/F/chills. Denies further complaints. Subjective Subjective This is a 54-year-old male who returns to wound care center for continued care of the left medial heel ulceration. Patient states that he has established appointment with cardiology and a GI specialist. Has seen cardiology and next GI appointment is April 15.. He did undergo vascular studies , 02/18/2025. He did undergo MRI of the left foot on 02/26/2025. He has continued changing his dressings as instructed utilizing Betadine wet-to-dry following Dakin's wash. Denies constitutional symptoms. Denies further complaints. Objective Data Objective Data Vital Signs: Vital Signs Temp Pulse Resp BP O2 Del Method 96.6 F L 107 H 18 153/89 H Room Air 03/04/25 10:13 03/04/25 10:13 03/04/25 10:13 03/04/25 10:13 03/04/25 10:13 Oxygen Delivery Method Room Air Weight: 88.451 kg Body Mass Index (BMI) 31.4 Physical Exam Const alert, oriented x3 and no apparent distress General Appearance: cooperative HEENT normocephalic Eyes General Eye: normal appearance of both eyes Neck General: normal visual inspection Lymph Lymphatic: no lymphadenopathy noted and no lymphedema noted Resp normal respiratory effort Cardio regular rate and regular rhythm Extremity no calf tenderness Extremity Narrative: Left lower extremity: Vascular: DP and PT pulses nonpalpable. Monophasic pulses on Doppler. CFT is delayed and sluggish to digits. Normal temperature gradient. Pedal hair growth is diminished at digits. Neurologic: Gross sensation intact. Protective sensation is diminished consistent with diabetic peripheral polyneuropathy however does still have some sensation about the heel and ulcerative site. Musculoskeletal: Muscle strength 5 of 5 age-appropriate. There is pain to palpation around the ulcerative site at the calcaneus. No pain to palpation of calf. Dermatologic: There is a cicatrix noted along the medial aspect of the ankle consistent with prior surgical reconstruction following his injury. There is a medial calcaneal wall ulceration that extends to the plantar portion of the fat pad near the calcaneal tubercles. Ulceration is full-thickness with mixed fibrotic and granular portions of the wound. There is no malodor noted today as this is improved from prior visits. No soft tissue crepitus to palpation. No purulent drainage is expressible. Wound margins are macerated secondary to previous use of hydrogen peroxide and serosanginous drainage but are improving with current Betadine wet-to-dry. Ulcerative site does probe to bone along the plantar medial wall of the calcaneus. Skin no rashes or lesions noted Neuro moves all extremities Debridement Note Debridement Note No debridement was completed: No debridement was completed today Post-Debridement Measurements and Additional Note: Post-Debridement Measurements/Treatment - Nurse 1 - General Ulcer Assessment Start: 02/25/25 10:06 Freq: Status: Active Protocol: [facility] Activity Type Activity Date Activity User E-sign Co-sign Detail Recorded Client Recorded Date Recorded By Document 02/25/25 10:07 DL [id number] 02/25/25 10:14 DL Document 03/04/25 10:13 KW [id number] 03/04/25 10:17 KW 02/25/25 03/04/25 10:07 10:13 - Today's Visit Information Type of service Follow-up Visit Follow-up Visit (Physician/BENEFITS SALES CONSULTANT (Physician/BENEFITS SALES CONSULTANT ) ) Arrival Mode Ambulatory, Ambulatory, Crutches Crutches Transfer Assistance None Patient Identification Verified (Name & Yes Yes ) Patient Requires Transmission-Based No Precautions Height and Weight Body Mass Index (BMI) 31.4 31.4 BMI Classification Obese Obese Vital Signs Temperature (97.8 F-99.1 F) 97.2 F L 96.6 F L Temperature Source Temporal Temporal Pulse Rate (60-100) 104 H 107 H Pulse Location Monitor Monitor Respiratory Rate (12-18) 18 18 Respiratory rate source Observation Observation Oxygen Delivery Method Room Air Blood Pressure (90/60-120/80) 120/77 153/89 H Blood Pressure Mean (mm Hg) 91 110 Source Monitor Monitor Position Sitting Blood Pressure Location Left Forearm History Since Last Visit- (Skip if this is Patient's initial visit) Have you changed medications since your No No last visit? Any new allergies or adverse reactions No No Had a fall/change in ADL's that may No No increase risk of falls Signs or symptoms of abuse and/or No No neglect since last visit Have you been in the hospital since your No No last visit? Has dressing in place as prescribed Yes Yes Has compression in place as prescribed N/A Yes Has offloadiing in place as prescribed Yes Yes Experienced any changes in pain level or No No management Left Footwear Surgical Shoe with pressure relief insole Right Footwear Regular Shoe Pain Scale: 0-10 Numeric Is Patient Pain Free? Yes Yes WC - Nurse 1 - General Ulcer Measurement Start: 02/25/25 10:06 Freq: Status: Active Protocol: Activity Type Activity Date Activity User E-sign Co-sign Detail Recorded Client Recorded Date Recorded By Document 02/25/25 10:07 DL [id number] 02/25/25 10:14 DL Document 03/04/25 10:13 KW [id number] 03/04/25 10:17 KW 02/25/25 03/04/25 10:07 10:13 Wound Center Nurse 1 1. LT MED HEEL -Current Size (cm) - Length 2.4 3.5 -Current Size (cm) - Width 3.8 2.4 -Current Size (cm) - Depth 0.6 1.1 -Total Square Cm 9.12 8.40 -Date of Last Picture (Recall this 03/04/25 field) -Photo Taken Yes -Exudate Amt Large Medium -Exudate Type Serosanguineous Serosanguineous -Wound Margin Thickened & Distinct, Rolled Under Outline Attached -Granulation Amt Large (67-100%) Large (67-100%) -Granulation Quality [place],Red [place],Red -Necrosis Amt Small (1-33%) Small (1-33%) -Necrotic Tissue Type Adherent Slough Adherent Slough -Structure Exposed N/A -Texture (Amena-wound Skin Appearance) Localized Edema Assessed ,Scarring -Moisture (Amena-wound Skin Appearance) No Abnormality Assessed, Maceration -Color (Amena-wound Skin Appearance) No Abnormality Assessed -Temperature (Amena-wound Skin No Abnormality No Abnormality Appearance) (Pt Warm) (Pt Warm) -Tenderness on Palpation (Amena-wound Yes No Skin Appearance) -Ulcer Cleansing Soap and Water Soap and Water -Foul Odor after Cleansing No No -Anesthetic Used 4% Lidocaine 5% Lidocaine Solution Gel WC - Nurse 2 - General Ulcer CM Notes Start: 02/25/25 10:06 Freq: Status: Active Protocol: Activity Type Activity Date Activity User E-sign Co-sign Detail Recorded Client Recorded Date Recorded By Document 02/25/25 10:33 [facility] [id number] 02/25/25 10:45 [facility] Document 03/04/25 10:39 [facility] [id number] 03/04/25 10:56 [facility] 02/25/25 03/04/25 10:33 10:39 Wound Center Nurse 2 1. LT MED HEEL -Time 10:33 10:39 -Procedure Performed No -Post Debridement (cm) - Length 3.7 3.9 -Post Debridement (cm) - Width 2.7 3.8 -Post Debridement (cm) - Depth 1 1 -Total Square (Post) (cm) 9.99 14.82 -Area of Debridement (cm) - Length 3.7 3.9 -Area of Debridement (cm) - Width 2.7 3.8 -Total Square (Area) (cm) 9.99 14.82 -Tunneling No -Undermining/Tunneling No -Circular Undermining No -Wound/Ulcer Outcome Not Healed Not Healed -Foul Odor after Cleansing No -Bleeding Controlled with NA NA Pain Scale: 0-10 Numeric Is Patient Pain Free? Yes Yes WC - Nurse 3 - General Ulcer D/C NN Start: 02/25/25 10:06 Freq: Status: Active Protocol: Activity Type Activity Date Activity User E-sign Co-sign Detail Recorded Client Recorded Date Recorded By Document 02/25/25 10:51 DL [id number] 02/25/25 10:53 DL Document 03/04/25 11:11 DL [id number] 03/04/25 11:12 DL 02/25/25 03/04/25 10:51 11:11 Wound Care Center Nurse 3 1. LT MED HEEL -Ulcer Cleansing dakins dakins -Foul Odor after Cleansing No -Other Dressing Betadine betadine gauze -Primary Dressing Covered/Secured with Dry Gauze & Dry Gauze & Roll Gauze, Roll Gauze, Secured with Secured with Tape Tape -Other Covering Lt Nasim Treatment Response Procedure Procedure Tolerated Well Tolerated Well Pain Scale: 0-10 Numeric Is Patient Pain Free? 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: CODE(S): L97.424 - Non-pressure chronic ulcer of left heel and midfoot with necrosis of bone (2) Diabetes mellitus with diabetic polyneuropathy: CODE(S): E11.42 - Type 2 diabetes mellitus with diabetic polyneuropathy (3) Type 2 diabetes mellitus with foot ulcer: CODE(S): E11.621 - Type 2 diabetes mellitus with foot ulcer; L97.509 - Non-pressure chronic ulcer of other part of unspecified foot with unspecified severity (4) Other specified peripheral vascular diseases: CODE(S): I73.89 - Other specified peripheral vascular diseases (5) CAD (coronary artery disease): CODE(S): I25.10 - Atherosclerotic heart disease of solomon coronary artery without angina pectoris (6) Alcoholic cirrhosis: CODE(S): K70.30 - Alcoholic cirrhosis of liver without ascites (7) Atherosclerosis of left lower extremity with ulceration: CODE(S): I70.249 - Atherosclerosis of solomon arteries of left leg with ulceration of unspecified site PLAN: Plan Patient seen and evaluated Patient does have history of noncompliance with follow-up with appropriate medical staffing for necessary procedures in addition to his uncontrolled DM type II with recent A1c of 14% Does have 25-year history of waxing waning ulceration at the medial aspect of the left heel. PCP has recommended vascular intervention for likely bypass however patient has yet to follow-up. He does inform me today that he is established visit with GI specialist in [place] however this will be in May 2025. Does have upcoming cardiology visit as he is established a provider in [place]. He will have upcoming vascular studies on 02/18/2025 at [facility]. I did place referral to Dr. Batista for further evaluation, and he did follow-up. Predebridement measurement: 3.9 cm x 3.8 cm x 1.0 cm Debridement was not performed as noted in the clinical panel above. Debridement performed during visit 02/18/25 was noted to be nonaggressive in nature due to patient's underlying vascular disease. Postdebridement measurement 3.9 cm x 3.8 cm x 1.0 cm. Ulcerative site does probe to bone at the plantar medial aspect of the calcaneal tubercle. There is increase in size of ulceration versus previous visit. Dakin's wash performed at the ulcerative site and dressed with Betadine wet to dry dressing with dry sterile dressing. He is to continue to change dressing daily. We have previously discussed stopping application of hydrogen peroxide. Discussed washing site with soap and water patting area dry with fresh clean towel/rag followed with Dakin's wash flushed by normal sterile saline. He may then continue betadine wet to dry dressing. He was sent for radiograph 02/04/25 of the left foot [facility]. Radiograph demonstrates some air density projecting over the plantar soft tissues near the left heel region/plantar calcaneal spur. This could be potentially due to gas producing infection or recent penetrating injury. Close correlation with clinical exam findings recommended. Radiologist also states that if concern is for osteomyelitis MRI evaluation is recommended. I have independently reviewed the imaging and do concur with the radiographic read. He underwent MRI on 02/26/2025 of the left foot. Interpretation as large medial sided heel ulceration without soft tissue abscess. Minimal 1 cm area of calcaneal edema at the medial plantar fascia attachment. Cannot determine if reactive osteitis versus very early change of osteomyelitis. Due to possibility of osteomyelitis he was prescribed a course of oral doxycycline 100 mg twice daily x 6 weeks (stop date 04/15/2025). Will also consider wound VAC application to assist in closure until further intervention can be achieved. Rx gabapentin 100 mg 3 times daily x 30 days. 1 refill was given OARS was checked. Rx oxycodone acetaminophen 5/325mg. 42 tablets were dispensed. He is to take 1 tablet every 8 hours for his ulcerative pain. LEAS was ordered. LEAS demonstrate right DP waveform triphasic and PT waveform biphasic, right KESHIA 1.12, right PT indices 0.80, DP indices 0.80, right digital indices 0.52; left PT artery waveforms are monophasic and the left DP waveforms are monophasic, left KESHIA 1.17, l left PT indices 0.50, left DP indices 0.44, unable to obtain digital pressure. 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 Venous studies were negative for DVT. No evidence of reflux or valvular incompetence. He did see Dr. Batista on 02/19/25 to discuss vascular studies. They are recommending CTA abdominal pelvis with runoff to evaluate for atherosclerotic burden and determine interventional options pending recent kidney function lab. Vascular also awaiting further cardiology analysis and are refraining from initiation of Pletal at this time until status can be given. He is can to continue ASA daily. Given patient's insufficient blood supply to allow for healing, aggressive debridement is not recommended at this time. I did discuss with patient at length the need to follow with a vascular surgeon to reestablish blood flow to the lower extremity to aid in allowing for healing of this ulcerative site. I have also discussed the necessary need to follow-up with cardiology for intervention of his coronary artery disease which may likely require stent placing. I have also discussed the need to undergo diet modification and to take the necessary medications to aid in glycemic control to reduce his A1c from 14 to under 7. Discussed this is all necessary to aid in healing and for salvage of his lower extremity. I have discussed with him at length for failure to follow through on these will likely require an amputation of the lower extremity and possibly complicate more proximal amputation healing in addition to undue burden of stress on his heart which will likely lead to his passing. He voices understanding of this, however he has heard this from his PCP and has still not followed up as of 02/04/2025. He does report today that he has now established cardiology visit and was seen 02/19/2025. Will follow-up with vascular as stated above. Discussed signs and symptoms of infection today. Discussed if he notices increasing redness around the ulcerative site that moves up the leg, purulent drainage from the wound site, increasing foul odor from the wound site, or if he experiences fever greater than 101 degree accompanied by nausea, vomiting, chills of these are signs of a progressing infection and he should report to the ED for IV antibiotics and for further evaluation. He voices understanding of this today. The following work up and care recommendations were made: Dressing: Wash site with Dakin's followed by normal sterile saline flush. Then apply Betadine wet-to-dry dressing. Change dressing daily. Wash: Soap and water. Pat area dry with clean cloth. Tissue growth optimization: None Offload: Will wear surgical shoe at all times of ambulation Vascular: PVD, have ordered updated vascular studies awaiting results. Edema: None Infection: No signs of infection currently. Pain: May take [id number] Tylenol for pain Host factors: Noncompliance, CAD, PVD, uncontrolled DM type II I answered all the patient's questions. To return to the wound healing center in 2 weeks or call sooner if the patient has any questions or concerns.
--- NOTE | 2025-03-04 14:15 | WC ---
PT IS POOR HISTORIAN. HAS BEEN SEEING [facility] AND HAS UPCOMING CTA SCHEDULED ON 03/19/25. PT REPORTING DURING OFFICE VISIT TODAY A SIMILAR STUDY BEING DONE @ [facility] IN [place] ON 03/08/25. CAN'T GIVE DETAILS. DID BRING IN FROM CAR @ END OF VISIT AN AFTER VISIT SUMMARY FROM WHICH DOES HAVE A NOTED UPCOMING APPT FOR CTA ON 03/08. UPDATED JULIAN WALKER, DR ARROYO. LEFT MSG AT DR MONISHA TORO'S OFFICE WITH UPDATE AND REQUEST FOR NOTES IN AN ATTEMPT TO COORDINATE CARE. WILL ALSO CALL CARDIAC SURGERY, DR PRISCILLA MARSHALL'S OFFICE TO REQUEST NOTES AND GIVE UPDATE.
[2025-03-15 14:51] VITALS: BP 147/86; PULSE 102; RESP 18; TEMP 35.7; BMI 31.4
[2025-03-18 10:58] VITALS: BP 126/81; PULSE 107; RESP 18; TEMP 36.1; BMI 31.4
--- NOTE | 2025-03-18 13:07 | PN.PCM_ITS ---
History of Present Illness Date of Service: 03/18/25 Chief Complaint: Left medial heel ulceration History of Wound: Patient is a 54-year-old male who was referred to the wound care center by his PCP in [place] for a chronic left medial heel ulceration. Patient states that the ulceration has waxed and waned for 25 years following an old injury to his left foot in which steel sheet-metal was dropped onto his foot and ankle. He did undergo reconstructive surgery at that time to fixated despite initial physician recommendation of BKA. 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 Patient also apparently has had long discussions with his primary care about the possibility of needing bypass to establish blood flow to heal the wound and would need a multiple specialist a [facility] in order to achieve healing. Patient also has limitations not wanting to get blood products he needs for major surgery. Patient did have labs performed in [place] prior to visit. States that he had previously was on doxycycline and had completed this. He denies any N/V/F/chills. Denies further complaints. Subjective Subjective This is a 54-year-old male who returns to wound care center for continued care of the left medial heel ulceration. Patient states that he has established appointment with cardiology and a GI specialist. Has seen cardiology and next GI appointment is April 15. He did undergo vascular studies , 02/18/2025. Reports he did undergo revascularization surgery on 03/17/2025. He is utilizing wound VAC to assist in closure of his ulcer site. Denies constitutional symptoms. Denies further complaints. Objective Data Objective Data Vital Signs: Vital Signs Temp Pulse Resp BP O2 Del Method 96.9 F L 107 H 18 126/81 H Room Air 03/18/25 10:58 03/18/25 10:58 03/18/25 10:58 03/18/25 10:58 03/18/25 10:58 Oxygen Delivery Method Room Air Weight: 88.451 kg Body Mass Index (BMI) 31.4 Physical Exam Const alert, oriented x3 and no apparent distress General Appearance: cooperative HEENT normocephalic Eyes General Eye: normal appearance of both eyes Neck General: normal visual inspection Lymph Lymphatic: no lymphadenopathy noted and no lymphedema noted Resp normal respiratory effort Cardio regular rate and regular rhythm Extremity no calf tenderness Extremity Narrative: Left lower extremity: Vascular: DP and PT pulses nonpalpable. Monophasic pulses on Doppler. CFT is d elayed and sluggish to digits. Normal temperature gradient. Pedal hair growth is diminished at digits. Neurologic: Gross sensation intact. Protective sensation is diminished consistent with diabetic peripheral polyneuropathy however does still have some sensation about the heel and ulcerative site. Musculoskeletal: Muscle strength 5 of 5 age-appropriate. There is pain to palpation around the ulcerative site at the calcaneus. No pain to palpation of calf. Dermatologic: There is a cicatrix noted along the medial aspect of the ankle consistent with prior surgical reconstruction following his injury. There is a medial calcaneal wall ulceration that extends to the plantar portion of the fat pad near the calcaneal tubercles. Ulceration is full-thickness with mixed fibrotic and granular portions of the wound. There is no malodor noted today as this is improved from prior visits. No soft tissue crepitus to palpation. No purulent drainage is expressible. Wound margins are macerated secondary to previous use of hydrogen peroxide and serosanginous drainage but are improving with current Betadine wet-to-dry. Ulcerative site does probe to bone along the plantar medial wall of the calcaneus. Skin no rashes or lesions noted Neuro moves all extremities Debridement Note Debridement Note Wound debrided: Left medial calcaneus Laterality: Left Wound Grade/Stage: Flores stage III Type of Debridement: Excisional debridement Anesthesia Used: 5% Lidocaine Gel and - (10 cc 1% lidocaine plain) Depth: Down to and including healthy tissue, in the subcutaneous layer and to muscle Percentage of wound debrided: 100 Instrument Used: 7mm curette Tissue Removed: Fibrous, devitalized subcutaneous, biofilm, slough Severity: Fat Layer Exposed Amount of bleeding with debridement: Mild Bleeding Controlled with: Compression and gauze Patient tolerated procedure: Patient tolerated procedure well Post-Debridement Measurements and Additional Note: Post-Debridement Measurements/Treatment EFRA - Nurse 1 - General Ulcer Assessment Start: 02/25/25 10:06 Freq: Status: Active Protocol: [facility] Activity Type Activity Date Activity User E-sign Co-sign Detail Recorded Client Recorded Date Recorded By Document 02/25/25 10:07 DL [id number] 02/25/25 10:14 DL Document 03/04/25 10:13 KW [id number] 03/04/25 10:17 KW Document 03/15/25 14:51 KW [id number] 03/15/25 15:00 KW Document 03/18/25 10:58 KW [id number] 03/18/25 11:10 KW 02/25/25 03/04/25 03/15/25 10:07 10:13 14:51 WC - Today's Visit Information Type of service Follow-up Visit Follow-up Visit Nurse-only (Physician/COMMISSARY AGENT (Physician/COMMISSARY AGENT Visit ) ) Arrival Mode Ambulatory, Ambulatory, Ambulatory, Crutches Crutches Crutches Transfer Assistance None Patient Identification Verified (Name & Yes Yes Yes ) Patient Requires Transmission-Based No Precautions Height and Weight Body Mass Index (BMI) 31.4 31.4 31.4 BMI Classification Obese Obese Obese Vital Signs Temperature (97.8 F-99.1 F) 97.2 F L 96.6 F L 96.3 F L Temperature Source Temporal Temporal Temporal Pulse Rate (60-100) 104 H 107 H 102 H Pulse Location Monitor Monitor Monitor Respiratory Rate (12-18) 18 18 18 Respiratory rate source Observation Observation Observation Oxygen Delivery Method Room Air Room Air Blood Pressure (90/60-120/80) 120/77 153/89 H 147/86 H Blood Pressure Mean (mm Hg) 91 110 106 Source Monitor Monitor Monitor Position Sitting Semi-Fowlers Blood Pressure Location Left Forearm Left Arm History Since Last Visit- (Skip if this is Patient's initial visit) Have you changed medications since your No No No last visit? Any new allergies or adverse reactions No No No Had a fall/change in ADL's that may No No No increase risk of falls Signs or symptoms of abuse and/or No No No neglect since last visit Have you been in the hospital since your No No No last visit? Has dressing in place as prescribed Yes Yes Yes Has compression in place as prescribed N/A Yes Yes Has offloadiing in place as prescribed Yes Yes Yes Experienced any changes in pain level or No No No management Left Footwear Surgical Shoe Surgical Shoe with pressure with pressure relief insole relief insole Right Footwear Regular Shoe Regular Shoe Pain Scale: 0-10 Numeric Is Patient Pain Free? Yes Yes Yes 03/18/25 10:58 WC - Today's Visit Information Type of service Follow-up Visit (Physician/COMMISSARY AGENT ) Arrival Mode Ambulatory, Crutches Transfer Assistance Patient Identification Verified (Name & Yes ) Patient Requires Transmission-Based Precautions Height and Weight Body Mass Index (BMI) 31.4 BMI Classification Obese Vital Signs Temperature (97.8 F-99.1 F) 96.9 F L Temperature Source Temporal Pulse Rate (60-100) 107 H Pulse Location Monitor Respiratory Rate (12-18) 18 Respiratory rate source Observation Oxygen Delivery Method Room Air Blood Pressure (90/60-120/80) 126/81 H Blood Pressure Mean (mm Hg) 96 Source Monitor Position Semi-Fowlers Blood Pressure Location Left Arm History Since Last Visit- (Skip if this is Patient's initial visit) Have you changed medications since your No last visit? Any new allergies or adverse reactions No Had a fall/change in ADL's that may No increase risk of falls Signs or symptoms of abuse and/or No neglect since last visit Have you been in the hospital since your No last visit? Has dressing in place as prescribed Yes Has compression in place as prescribed Yes Has offloadiing in place as prescribed Yes Experienced any changes in pain level or No management Left Footwear Surgical Shoe with pressure relief insole Right Footwear Regular Shoe Pain Scale: 0-10 Numeric Is Patient Pain Free? Yes - Nurse 1 - General Ulcer Measurement Start: 02/25/25 10:06 Freq: Status: Active Protocol: Activity Type Activity Date Activity User E-sign Co-sign Detail Recorded Client Recorded Date Recorded By Document 02/25/25 10:07 DL [id number] 02/25/25 10:14 DL Document 03/04/25 10:13 KW [id number] 03/04/25 10:17 KW Document 03/18/25 10:58 KW [id number] 03/18/25 11:10 KW 02/25/25 03/04/25 03/18/25 10:07 10:13 10:58 Wound Center Nurse 1 1. LT MED HEEL -Current Size (cm) - Length 2.4 3.5 3.7 -Current Size (cm) - Width 3.8 2.4 4.3 -Current Size (cm) - Depth 0.6 1.1 0.4 -Total Square Cm 9.12 8.40 15.91 -Date of Last Picture (Recall this 03/04/25 03/18/25 field) -Photo Taken Yes -Tunneling Position (O'clock) 12 -Tunneling Distance (cm) 1.3 -Exudate Amt Large Medium Small -Exudate Type Serosanguineous Serosanguineous Serosanguineous -Wound Margin Thickened & Distinct, Distinct, Rolled Under Outline Outline Attached Attached -Granulation Amt Large (67-100%) Large (67-100%) Medium (34-66%) -Granulation Quality [place],Red [place],Red Red -Necrosis Amt Small (1-33%) Small (1-33%) Small (1-33%) -Necrotic Tissue Type Adherent Slough Adherent Slough Eschar -Structure Exposed N/A -Texture (Amena-wound Skin Appearance) Localized Edema Assessed Assessed,Callus ,Scarring -Moisture (Amena-wound Skin Appearance) No Abnormality Assessed, Assessed Maceration -Color (Amena-wound Skin Appearance) No Abnormality Assessed Assessed -Temperature (Amena-wound Skin No Abnormality No Abnormality No Abnormality Appearance) (Pt Warm) (Pt Warm) (Pt Warm) -Tenderness on Palpation (Amena-wound Yes No Skin Appearance) -Ulcer Cleansing Soap and Water Soap and Water Soap and Water -Foul Odor after Cleansing No No Yes -Anesthetic Used 4% Lidocaine 5% Lidocaine 4% Lidocaine Solution Gel Solution WC - Nurse 2 - General Ulcer CM Notes Start: 02/25/25 10:06 Freq: Status: Active Protocol: Activity Type Activity Date Activity User E-sign Co-sign Detail Recorded Client Recorded Date Recorded By Document 02/25/25 10:33 [facility] [id number] 02/25/25 10:45 [facility] Document 03/04/25 10:39 [facility] [id number] 03/04/25 10:56 [facility] Document 03/18/25 11:22 [facility] [id number] 03/18/25 11:36 [facility] 02/25/25 03/04/25 03/18/25 10:33 10:39 11:22 Wound Center Nurse 2 1. LT MED HEEL -Time 10:33 10:39 11:24 -Correct Patient Yes -Correct Side, Site, Position Yes -Correct Procedure Yes -Procedure Performed No Yes -Type of Procedure Debridement -Clinical Debridement Muscle / Fascia -Tissue Removed Muscle,Fascia -Post Debridement (cm) - Length 3.7 3.9 4 -Post Debridement (cm) - Width 2.7 3.8 2.7 -Post Debridement (cm) - Depth 1 1 1 -Total Square (Post) (cm) 9.99 14.82 10.8 -Area of Debridement (cm) - Length 3.7 3.9 4 -Area of Debridement (cm) - Width 2.7 3.8 2.7 -Total Square (Area) (cm) 9.99 14.82 10.8 -Tunneling No No -Undermining/Tunneling No No -Circular Undermining No No -Wound/Ulcer Outcome Not Healed Not Healed Not Healed -Ulcer Cleansing Rinsed/ Irrigated with Saline -Foul Odor after Cleansing No No -Bioengineered Tissue No -Injectable Lidocaine (%) 1 -Lidocaine (ml) 10 -Bleeding Controlled with NA NA Pressure -Treatment Response Procedure Tolerated Well -Debridement - Muscle / Fascia, 1st Yes 20sq cm Pain Scale: 0-10 Numeric Is Patient Pain Free? Yes Yes No left foot -Duration (hours) Acute -Pain Behavior Facial Grimacing -Alleviating Factors/Interventions Medication -Comments 1% lidocaine injection given prior to debridement. WC - Nurse 3 - General Ulcer D/C NN Start: 02/25/25 10:06 Freq: Status: Active Protocol: Activity Type Activity Date Activity User E-sign Co-sign Detail Recorded Client Recorded Date Recorded By Document 02/25/25 10:51 DL [id number] 02/25/25 10:53 DL Document 03/04/25 11:11 DL [id number] 03/04/25 11:12 DL Document 03/15/25 14:51 KW [id number] 03/15/25 15:00 KW Document 03/18/25 12:10 JF [id number] 03/18/25 12:11 JF 02/25/25 03/04/25 03/15/25 10:51 11:11 14:51 Wound Care Center Nurse 3 1. LT MED HEEL -Ulcer Cleansing bessy doherty -Foul Odor after Cleansing No No -Negative Pressure Wound Therapy Start -NPWT Application Charge NPWT > 50 sq cm ($) -Foam Supply Charges -Setting (mmHg) 125 -Negative Pressure is Continuous -Other Dressing Betadine betadine gauze dakins rinse -Primary Dressing Covered/Secured with Dry Gauze & Dry Gauze & Roll Gauze, Roll Gauze, Secured with Secured with Tape Tape -Other Covering Lt Nasim VAC/ Genadyne LLE -Compression Wrap Treatment Response Procedure Procedure Procedure Tolerated Well Tolerated Well Tolerated Well Pain Scale: 0-10 Numeric Is Patient Pain Free? Yes Yes Yes WC - Visit Discharge Discharge Condition Stable Stable Stable Ambulatory Status Ambulatory, Ambulatory, Ambulatory, Crutches Crutches Crutches Transportation Private Auto Private Auto Private Auto Medication Reconcilliation completed & provided to patient/care provider Clinical Summary of Care Provided Notes: Surgical Shoe Facility Type Home Health Orders Sent Yes 03/18/25 12:10 Wound Care Center Nurse 3 1. LT MED HEEL -Ulcer Cleansing Rinsed/ Irrigated with Saline -Foul Odor after Cleansing No -Negative Pressure Wound Therapy -NPWT Application Charge NPWT & Debridement (nc ) -Foam Supply Charges Patient Supplied Dressing -Setting (mmHg) -Negative Pressure is Continuous -Other Dressing -Primary Dressing Covered/Secured with -Other Covering LLE -Compression Wrap Nasim Wrap Treatment Response Pain Scale: 0-10 Numeric Is Patient Pain Free? 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: CODE(S): L97.424 - Non-pressure chronic ulcer of left heel and midfoot with necrosis of bone (2) Diabetes mellitus with diabetic polyneuropathy: CODE(S): E11.42 - Type 2 diabetes mellitus with diabetic polyneuropathy (3) Type 2 diabetes mellitus with foot ulcer: CODE(S): E11.621 - Type 2 diabetes mellitus with foot ulcer; L97.509 - Non-pressure chronic ulcer of other part of unspecified foot with unspecified severity (4) Other specified peripheral vascular diseases: CODE(S): I73.89 - Other specified peripheral vascular diseases (5) CAD (coronary artery disease): CODE(S): I25.10 - Atherosclerotic heart disease of [place] coronary artery without angina pectoris (6) Alcoholic cirrhosis: CODE(S): K70.30 - Alcoholic cirrhosis of liver without ascites (7) Atherosclerosis of left lower extremity with ulceration: CODE(S): I70.249 - Atherosclerosis of [place] arteries of left leg with ulceration of unspecified site PLAN: Plan Patient seen and evaluated Patient does have history of noncompliance with follow-up with appropriate medical staffing for necessary procedures in addition to his uncontrolled DM type II with recent A1c of 14% Does have 25-year history of waxing waning ulceration at the medial aspect of the left heel. PCP has recommended vascular intervention for likely bypass. He has undergone revascularization in [place] for balloon angioplasty of the left lower extremity on 03/17/2025. He has informed me that he has established visit with GI specialist in [place] however this will be in May 2025. Continues to follow with cardiology and has established a provider in [place]. He did undergo revascularization in [place] with a vascular surgeon at [facility] as stated above. Predebridement measurement: 3.9 cm x 2.6 cm x 1.0 cm Debridement was not performed as noted in the clinical panel above. Debridement performed during visit 02/18/25 was noted to be nonaggressive in nature due to patient's underlying vascular disease. Postdebridement measurement 4.0 cm x 2.7 cm x 1.0 cm. Ulcerative site does probe to bone at the plantar medial aspect of the calcaneal tubercle. There is slight change size of ulceration versus previous visit likely due to assistance of wound vac closure. Dakin's wash performed at the ulcerative site and an wound VAC was applied to the ulcerative site. We have previously discussed stopping application of hydrogen peroxide. Discussed washing site with soap and water patting area dry with fresh clean towel/rag followed with Dakin's wash flushed by normal sterile saline. He may then continue betadine wet to dry dressing should the wound VAC fail/shut off. He was sent for radiograph 02/04/25 of the left foot [facility]. Radiograph demonstrates some air density projecting over the plantar soft tissues near the left heel region/plantar calcaneal spur. This could be potentially due to gas producing infection or recent penetrating injury. Close correlation with clinical exam findings recommended. Radiologist also states that if concern is for osteomyelitis MRI evaluation is recommended. I have independently reviewed the imaging and do concur with the radiographic read. He underwent MRI on 02/26/2025 of the left foot. Interpretation as large medial sided heel ulceration without soft tissue abscess. Minimal 1 cm area of calcaneal edema at the medial plantar fascia attachment. Cannot determine if reactive osteitis versus very early change of osteomyelitis. Due to possibility of osteomyelitis he was prescribed a course of oral doxycycline 100 mg twice daily x 6 weeks (stop date 04/15/2025). Will also consider wound VAC application to assist in closure until further intervention can be achieved. Rx gabapentin 100 mg 3 times daily x 30 days. 1 refill was given OARS was checked. Rx oxycodone acetaminophen 5/325mg. 42 tablets were dispensed. He is to take 1 tablet every 8 hours for his ulcerative pain. LEAS was ordered. LEAS demonstrate right DP waveform triphasic and PT waveform biphasic, right KESHIA 1.12, right PT indices 0.80, DP indices 0.80, right digital indices 0.52; left PT artery waveforms are monophasic and the left DP waveforms are monophasic, left KESHIA 1.17, l left PT indices 0.50, left DP indices 0.44, unable to obtain digital pressure. 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 Venous studies were negative for DVT. No evidence of reflux or valvular incompetence. He did see Dr. Batista on 02/19/25 to discuss vascular studies. They are recommending CTA abdominal pelvis with runoff to evaluate for atherosclerotic burden and determine interventional options pending recent kidney function lab. Vascular also awaiting further cardiology analysis and are refraining from initiation of Pletal at this time until status can be given. He is can to continue ASA daily. Given patient's insufficient blood supply to allow for healing, aggressive debridement is not recommended at this time. However he has now undergone revascularization surgery which does seem successful given surgical report debridement did take place today. I did discuss with patient at length the need to follow with a vascular surgeon to reestablish blood flow to the lower extremity to aid in allowing for healing of this ulcerative site. I have also discussed the necessary need to follow-up with cardiology for intervention of his coronary artery disease which may likely require stent placing. I have also discussed the need to undergo diet modification and to take the necessary medications to aid in glycemic control to reduce his A1c from 14 to under 7. Discussed this is all necessary to aid in healing and for salvage of his lower extremity. I have discussed with him at length for failure to follow through on these will likely require an amputation of the lower extremity and possibly complicate more proximal amputation healing in addition to undue burden of stress on his heart which will likely lead to his passing. He voices understanding of this, however he has heard this from his PCP and has still not followed up as of 02/04/2025. He does report today that he has now established cardiology visit and was seen 02/19/2025. Will follow-up with vascular as stated above. Discussed signs and symptoms of infection today. Discussed if he notices increasing redness around the ulcerative site that moves up the leg, purulent drainage from the wound site, increasing foul odor from the wound site, or if he experiences fever greater than 101 degree accompanied by nausea, vomiting, chills of these are signs of a progressing infection and he should report to the ED for IV antibiotics and for further evaluation. He voices understanding of this today. The following work up and care recommendations were made: Dressing: Wash site with Dakin's followed by normal sterile saline flush. Wound VAC applied to left calcaneus. Should the VAC shut off or fail he is to remove dressing then apply Betadine wet-to-dry dressing. Change dressing daily. Wound VAC change every 3 days Wash: Do not get wet Tissue growth optimization: None Offload: Will wear surgical shoe at all times of ambulation Vascular: PVD, have ordered updated vascular studies awaiting results. Edema: None Infection: No signs of infection currently. Pain: May take [id number] Tylenol for pain Host factors: Noncompliance, CAD, PVD, uncontrolled DM type II I answered all the patient's questions. To return to the wound healing center in 1 week or call sooner if the patient has any questions or concerns.
--- NOTE | 2025-03-19 12:17 | WC ---
PHOTO 03/18/25 LEFT [facility]
[2025-03-23 13:23] VITALS: BP 123/88; PULSE 111; RESP 16; TEMP 35.2; BMI 31.4
--- NOTE | 2025-03-23 13:31 | WC ---
Patient arrived today [id number] the vac applied to his ulcer. States he removed it Saturday am. Has been applying daily betadine and gauze to ulcer. Stated he didn't like the smell of the NPT and wanted to clean the ulcer. Washed the ulcer today with soap and water and reapplied the vac without difficulty with suction at 125mmHg continuous suction.
[2025-03-25 10:09] VITALS: BP 162/92; PULSE 117; RESP 16; TEMP 37; BMI 31.4
--- NOTE | 2025-03-25 12:30 | PCM.WC.PN ---
History of Present Illness Date of Service: 03/25/25 Chief Complaint: Left medial heel ulceration History of Wound: Patient is a 54-year-old male who was referred to the wound care center by his PCP in [place] for a chronic left medial heel ulceration. Patient states that the ulceration has waxed and waned for 25 years following an old injury to his left foot in which steel sheet-metal was dropped onto his foot and ankle. He did undergo reconstructive surgery at that time to fixated despite initial physician recommendation of BKA. 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 Patient also apparently has had long discussions with his primary care about the possibility of needing bypass to establish blood flow to heal the wound and would need a multiple specialist approach in order to achieve healing. Patient also has limitations not wanting to get blood products he needs for major surgery. Patient did have labs performed in [place] prior to visit. States that he had previously was on doxycycline and had completed this. He denies any N/V/F/chills. Denies further complaints. Subjective Subjective This is a 54-year-old male who returns to wound care center for continued care of the left medial heel ulceration. He has established appointment with cardiology and a GI specialist. Has seen cardiology and next GI appointment is April 15. He did undergo vascular studies , 02/18/2025. Reports he did undergo revascularization surgery on 03/17/2025 at [facility]. He is utilizing wound VAC to assist in closure of his ulcer site but states this vac causes pain which gets his heart acting funny requiring him to take nitro tablets. States he does not like the wound vac. Denies constitutional symptoms. Denies further complaints. Objective Data Objective Data Vital Signs: Vital Signs Temp Pulse Resp BP O2 Del Method 98.6 F 117 H 16 162/92 H Room Air 03/25/25 10:03/25/25 10:09 03/25/25 10:09 03/25/25 10:03/18/25 10:58 Oxygen Delivery Method Room Air Weight: 88.451 kg Body Mass Index (BMI) 31.4 Physical Exam Const alert, oriented x3 and no apparent distress General Appearance: cooperative HEENT normocephalic Eyes General Eye: normal appearance of both eyes Neck General: normal visual inspection Lymph Lymphatic: no lymphadenopathy noted and no lymphedema noted Resp normal respiratory effort Cardio regular rate and regular rhythm Extremity no calf tenderness Extremity Narrative: Left lower extremity: Vascular: DP and PT pulses nonpalpable. Monophasic pulses on Doppler. CFT is delayed and sluggish to digits. Normal temperature gradient. Pedal hair growth is diminished at digits. Neurologic: Gross sensation intact. Protective sensation is diminished consistent with diabetic peripheral polyneuropathy however does still have some sensation about the heel and ulcerative site. Musculoskeletal: Muscle strength 5 of 5 age-appropriate. There is pain to palpation around the ulcerative site at the calcaneus. No pain to palpation of calf. Dermatologic: There is a cicatrix noted along the medial aspect of the ankle consistent with prior surgical reconstruction following his injury. There is a medial calcaneal wall ulceration that extends to the plantar portion of the fat pad near the calcaneal tubercles. Ulceration is full-thickness with mixed fibrotic and granular portions of the wound. There is no malodor noted today as this is improved from prior visits. No soft tissue crepitus to palpation. No purulent drainage is expressible. Wound margins are macerated secondary to previous use of hydrogen peroxide and serosanginous drainage but are improving with current Betadine wet-to-dry. Ulcerative site does probe to bone along the plantar medial wall of the calcaneus. Skin no rashes or lesions noted Neuro moves all extremities Debridement Note Debridement Note Wound debrided: Left medial calcaneus Laterality: Left Wound Grade/Stage: Flores stage III Type of Debridement: Excisional debridement Anesthesia Used: 5% Lidocaine Gel and - (10 cc 0.5% Marcaine with epinephrine) Depth: Down to and including healthy tissue, in the subcutaneous layer and to muscle Percentage of wound debrided: 100 Instrument Used: 5mm curette Tissue Removed: Fibrous, devitalized subcutaneous, biofilm, slough Severity: Fat Layer Exposed Amount of bleeding with debridement: Mild Bleeding Controlled with: Compression and gauze Patient tolerated procedure: Patient tolerated procedure well Post-Debridement Measurements and Additional Note: Post-Debridement Measurements/Treatment WC - Nurse 1 - General Ulcer Assessment Start: 02/25/25 10:06 Freq: Status: Active Protocol: WC.LOWEXT Activity Type Activity Date Activity User E-sign Co-sign Detail Recorded Client Recorded Date Recorded By Document 02/25/25 10:07 DL [id number] 02/25/25 10:14 DL Document 03/04/25 10:13 KW [id number] 03/04/25 10:17 KW Document 03/15/25 14:51 KW [id number] 03/15/25 15:00 KW Document 03/18/25 10:58 KW [id number] 03/18/25 11:10 KW Document 03/23/25 13:23 JF [id number] 03/23/25 13:25 JF Document 03/25/25 10:09 JF [id number] 03/25/25 10:14 JF 02/25/25 03/04/25 03/15/25 10:07 10:13 14:51 WC - Today's Visit Information Type of service Follow-up Visit Follow-up Visit Nurse-only (Physician/TRAIN SYSTEM OPERATOR (Physician/TRAIN SYSTEM OPERATOR Visit ) ) Arrival Mode Ambulatory, Ambulatory, Ambulatory, Crutches Crutches Crutches Transfer Assistance None Patient Identification Verified (Name & Yes Yes Yes ) Patient Requires Transmission-Based No Precautions Finger Stick Blood Sugar(mg/dl) (if indicated): Blood Sugar Height and Weight Body Mass Index (BMI) 31.4 31.4 31.4 BMI Classification Obese Obese Obese Vital Signs Temperature (97.8 F-99.1 F) 97.2 F L 96.6 F L 96.3 F L Temperature Source Temporal Temporal Temporal Pulse Rate (60-100) 104 H 107 H 102 H Pulse Location Monitor Monitor Monitor Respiratory Rate (12-18) 18 18 18 Respiratory rate source Observation Observation Observation Oxygen Delivery Method Room Air Room Air Blood Pressure (90/60-120/80) 120/77 153/89 H 147/86 H Blood Pressure Mean (mm Hg) 91 110 106 Source Monitor Monitor Monitor Position Sitting Semi-Fowlers Blood Pressure Location Left Forearm Left Arm History Since Last Visit- (Skip if this is Patient's initial visit) Have you changed medications since your No No No last visit? Any new allergies or adverse reactions No No No Had a fall/change in ADL's that may No No No increase risk of falls Signs or symptoms of abuse and/or No No No neglect since last visit Have you been in the hospital since your No No No last visit? Has dressing in place as prescribed Yes Yes Yes Has compression in place as prescribed N/A Yes Yes Has offloadiing in place as prescribed Yes Yes Yes Experienced any changes in pain level or No No No management Left Footwear Surgical Shoe Surgical Shoe with pressure with pressure relief insole relief insole Right Footwear Regular Shoe Regular Shoe Pain Scale: 0-10 Numeric Is Patient Pain Free? Yes Yes Yes left foot -Duration (hours) 03/18/25 03/23/25 03/25/25 10:58 13:23 10:09 WC - Today's Visit Information Type of service Follow-up Visit Nurse-only Follow-up Visit (Physician/TRAIN SYSTEM OPERATOR Visit (Physician/TRAIN SYSTEM OPERATOR ) ) Arrival Mode Ambulatory, Ambulatory, Ambulatory, Crutches Crutches Crutches Transfer Assistance Patient Identification Verified (Name & Yes Yes Yes ) Patient Requires Transmission-Based No No Precautions Finger Stick Blood Sugar(mg/dl) (if 286 indicated): Blood Sugar Stated by Patient Height and Weight Body Mass Index (BMI) 31.4 31.4 31.4 BMI Classification Obese Obese Obese Vital Signs Temperature (97.8 F-99.1 F) 96.9 F L 95.4 F L 98.6 F Temperature Source Temporal Temporal Temporal Pulse Rate (60-100) 107 H 111 H 117 H Pulse Location Monitor Monitor Monitor Respiratory Rate (12-18) 18 16 16 Respiratory rate source Observation Observation Observation Oxygen Delivery Method Room Air Blood Pressure (90/60-120/80) 126/81 H 123/88 H 162/92 H Blood Pressure Mean (mm Hg) 96 99 115 Source Monitor Monitor Monitor Position Semi-Fowlers Semi-Fowlers Sitting Blood Pressure Location Left Arm Left Arm Left Arm History Since Last Visit- (Skip if this is Patient's initial visit) Have you changed medications since your No No last visit? Any new allergies or adverse reactions No No Had a fall/change in ADL's that may No No increase risk of falls Signs or symptoms of abuse and/or No No neglect since last visit Have you been in the hospital since your No No last visit? Has dressing in place as prescribed Yes Yes Has compression in place as prescribed Yes Yes Has offloadiing in place as prescribed Yes Yes Experienced any changes in pain level or No No management Left Footwear Surgical Shoe Surgical Shoe Surgical Shoe with pressure with pressure with pressure relief insole relief insole relief insole Right Footwear Regular Shoe Regular Shoe Regular Shoe Pain Scale: 0-10 Numeric Is Patient Pain Free? Yes Yes Yes left foot -Duration (hours) Acute WC - Nurse 1 - General Ulcer Measurement Start: 02/25/25 10:06 Freq: Status: Active Protocol: Activity Type Activity Date Activity User E-sign Co-sign Detail Recorded Client Recorded Date Recorded By Document 02/25/25 10:07 DL [id number] 02/25/25 10:14 DL Document 03/04/25 10:13 KW [id number] 03/04/25 10:17 KW Document 03/18/25 10:58 KW [id number] 03/18/25 11:10 KW Document 03/25/25 10:09 JF [id number] 03/25/25 10:14 JF 02/25/25 03/04/25 03/18/25 10:07 10:13 10:58 Wound Center Nurse 1 1. LT MED HEEL -Combined with other wound -Current Size (cm) - Length 2.4 3.5 3.7 -Current Size (cm) - Width 3.8 2.4 4.3 -Current Size (cm) - Depth 0.6 1.1 0.4 -Total Square Cm 9.12 8.40 15.91 -Date of Last Picture (Recall this 03/04/25 03/18/25 field) -Photo Taken Yes -Epithelialization -Tunneling -Tunneling Position (O'clock) 12 -Tunneling Distance (cm) 1.3 -Undermining/Tunneling -Circular Undermining -Exudate Amt Large Medium Small -Exudate Type Serosanguineous Serosanguineous Serosanguineous -Wound Margin Thickened & Distinct, Distinct, Rolled Under Outline Outline Attached Attached -Granulation Amt Large (67-100%) Large (67-100%) Medium (34-66%) -Granulation Quality [place],Red [place],Red Red -Slough/Fibrin -Necrosis Amt Small (1-33%) Small (1-33%) Small (1-33%) -Necrotic Tissue Type Adherent Slough Adherent Slough Eschar -Structure Exposed N/A -Texture (Amena-wound Skin Appearance) Localized Edema Assessed Assessed,Callus ,Scarring -Moisture (Amena-wound Skin Appearance) No Abnormality Assessed, Assessed Maceration -Color (Amena-wound Skin Appearance) No Abnormality Assessed Assessed -Temperature (Amena-wound Skin No Abnormality No Abnormality No Abnormality Appearance) (Pt Warm) (Pt Warm) (Pt Warm) -Tenderness on Palpation (Amena-wound Yes No Skin Appearance) -Ulcer Cleansing Soap and Water Soap and Water Soap and Water -Foul Odor after Cleansing No No Yes -Anesthetic Used 4% Lidocaine 5% Lidocaine 4% Lidocaine Solution Gel Solution Lower Limb Edema Present 03/25/25 10:09 Wound Center Nurse 1 1. LT MED HEEL -Combined with other wound No -Current Size (cm) - Length 2.0 -Current Size (cm) - Width 3.6 -Current Size (cm) - Depth 0.8 -Total Square Cm 7.20 -Date of Last Picture (Recall this field) -Photo Taken Yes -Epithelialization None Present -Tunneling No -Tunneling Position (O'clock) -Tunneling Distance (cm) -Undermining/Tunneling No -Circular Undermining No -Exudate Amt Large -Exudate Type Serosanguineous -Wound Margin Flat & Intact -Granulation Amt Large (67-100%) -Granulation Quality Red -Slough/Fibrin Yes -Necrosis Amt Small (1-33%) -Necrotic Tissue Type Adherent Slough -Structure Exposed N/A -Texture (Amena-wound Skin Appearance) Assessed,Callus -Moisture (Amena-wound Skin Appearance) Assessed, Maceration -Color (Amena-wound Skin Appearance) Assessed -Temperature (Amena-wound Skin No Abnormality Appearance) (Pt Warm) -Tenderness on Palpation (Amena-wound No Skin Appearance) -Ulcer Cleansing Rinsed/ Irrigated with Saline -Foul Odor after Cleansing No -Anesthetic Used 5% Lidocaine Gel Lower Limb Edema Present No WC - Nurse 2 - General Ulcer CM Notes Start: 02/25/25 10:06 Freq: Status: Active Protocol: Activity Type Activity Date Activity User E-sign Co-sign Detail Recorded Client Recorded Date Recorded By Document 02/25/25 10:33 BM [id number] 02/25/25 10:45 BMF Document 03/04/25 10:39 BMF [id number] 03/04/25 10:56 BMF Document 03/18/25 11:22 BMF [id number] 03/18/25 11:36 BMF Document 03/25/25 10:41 [facility] [id number] 03/25/25 11:01 [facility] 02/25/25 03/04/25 03/18/25 10:33 10:39 11:22 Wound Center Nurse 2 1. MED HEEL -Time 10:33 10:39 11:24 -Correct Patient Yes -Correct Side, Site, Position Yes -Correct Procedure Yes -Procedure Performed No Yes -Type of Procedure Debridement -Clinical Debridement Muscle / Fascia -Tissue Removed Muscle,Fascia -Post Debridement (cm) - Length 3.7 3.9 4 -Post Debridement (cm) - Width 2.7 3.8 2.7 -Post Debridement (cm) - Depth 1 1 1 -Total Square (Post) (cm) 9.99 14.82 10.8 -Area of Debridement (cm) - Length 3.7 3.9 4 -Area of Debridement (cm) - Width 2.7 3.8 2.7 -Total Square (Area) (cm) 9.99 14.82 10.8 -Tunneling No No -Undermining/Tunneling No No -Circular Undermining No No -Wound/Ulcer Outcome Not Healed Not Healed Not Healed -Ulcer Cleansing Rinsed/ Irrigated with Saline -Foul Odor after Cleansing No No -Bioengineered Tissue No -Injectable Lidocaine (%) 1 -Lidocaine (ml) 10 -Injectable Lidocaine w/ Epi (%) -Injectable Lidocaine w/ Epi (mls) -Bleeding Controlled with NA NA Pressure -Treatment Response Procedure Tolerated Well -Debridement - Muscle / Fascia, 1st Yes 20sq cm Pain Scale: 0-10 Numeric Is Patient Pain Free? Yes Yes No left foot -Duration (hours) Acute -Pain Behavior Facial Grimacing -Alleviating Factors/Interventions Medication -Comments 1% lidocaine injection given prior to debridement. 03/25/25 10:41 Wound Center Nurse 2 1. MED HEEL -Time 10:41 -Correct Patient Yes -Correct Side, Site, Position Yes -Correct Procedure Yes -Procedure Performed Yes -Type of Procedure Debridement -Clinical Debridement Muscle / Fascia -Tissue Removed Muscle,Fascia -Post Debridement (cm) - Length 3.5 -Post Debridement (cm) - Width 2.9 -Post Debridement (cm) - Depth 1.6 -Total Square (Post) (cm) 10.15 -Area of Debridement (cm) - Length 3.5 -Area of Debridement (cm) - Width 2.9 -Total Square (Area) (cm) 10.15 -Tunneling -Undermining/Tunneling -Circular Undermining -Wound/Ulcer Outcome Not Healed -Ulcer Cleansing -Foul Odor after Cleansing No -Bioengineered Tissue No -Injectable Lidocaine (%) -Lidocaine (ml) -Injectable Lidocaine w/ Epi (%) 1 -Injectable Lidocaine w/ Epi (mls) 10 -Bleeding Controlled with Pressure -Treatment Response Procedure Tolerated Well -Debridement - Muscle / Fascia, 1st Yes 20sq cm Pain Scale: 0-10 Numeric Is Patient Pain Free? Yes left foot -Duration (hours) -Pain Behavior -Alleviating Factors/Interventions -Comments WC - Nurse 3 - General Ulcer D/C NN Start: 02/25/25 10:06 Freq: Status: Active Protocol: Activity Type Activity Date Activity User E-sign Co-sign Detail Recorded Client Recorded Date Recorded By Document 02/25/25 10:51 DL [id number] 02/25/25 10:53 DL Document 03/04/25 11:11 DL [id number] 03/04/25 11:12 DL Document 03/15/25 14:51 KW [id number] 03/15/25 15:00 KW Edit Result 03/15/25 14:51 KW (1) [id number] 03/23/25 08:55 KW Document 03/18/25 12:10 JF [id number] 03/18/25 12:11 JF Document 03/23/25 13:23 JF [id number] 03/23/25 13:25 JF Document 03/25/25 11:17 JF [id number] 03/25/25 11:17 JF (1) 1. LT MED HEEL - NPWT Application Charge NPWT > 50 sq cm ($ => NPWT </= 50 sq cm ) => ($) 02/25/25 03/04/25 03/15/25 10:51 11:11 14:51 Wound Care Center Nurse 3 1. LT MED HEEL -Ulcer Cleansing dakins dakins dakins -Foul Odor after Cleansing No No -Negative Pressure Wound Therapy Start -NPWT Application Charge NPWT </= 50 sq cm ($) -Foam Supply Charges -Setting (mmHg) 125 -Negative Pressure is Continuous -Primary Dressing Applied -Other Dressing Betadine betadine gauze dakins rinse -Primary Dressing Covered/Secured with Dry Gauze & Dry Gauze & Roll Gauze, Roll Gauze, Secured with Secured with Tape Tape -Other Covering Lt Nasim VAC/ Genadyne -Nugauze, Iodoform 1in LLE -Compression Wrap Treatment Response Procedure Procedure Procedure Tolerated Well Tolerated Well Tolerated Well Pain Scale: 0-10 Numeric Is Patient Pain Free? Yes Yes Yes WC - Visit Discharge Discharge Condition Stable Stable Stable Ambulatory Status Ambulatory, Ambulatory, Ambulatory, Crutches Crutches Crutches Transportation Private Auto Private Auto Private Auto Medication Reconcilliation completed & provided to patient/care provider Clinical Summary of Care Provided Notes: Surgical Shoe Facility Type Home Health Orders Sent Yes 03/18/25 03/23/25 03/25/25 12:10 13:23 11:17 Wound Care Center Nurse 3 1. LT MED HEEL -Ulcer Cleansing Rinsed/ Soap and Water dakin's Irrigated with Saline -Foul Odor after Cleansing No No No -Negative Pressure Wound Therapy Continue -NPWT Application Charge NPWT & NPWT </= 50 sq Debridement (nc cm ($) ) -Foam Supply Charges Patient Patient Supplied Supplied Dressing Dressing -Setting (mmHg) 125 -Negative Pressure is Continuous Continuous -Primary Dressing Applied Nugauze, Iodoform 1in -Other Dressing -Primary Dressing Covered/Secured with Dry Gauze & Roll Gauze, Secured with Tape -Other Covering -Nugauze, Iodoform 1in 1 LLE -Compression Wrap Nasim Wrap Nasim Wrap Nasim Wrap Treatment Response Pain Scale: 0-10 Numeric Is Patient Pain Free? 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: CODE(S): L97.424 - Non-pressure chronic ulcer of left heel and midfoot with necrosis of bone (2) Diabetes mellitus with diabetic polyneuropathy: CODE(S): E11.42 - Type 2 diabetes mellitus with diabetic polyneuropathy (3) Type 2 diabetes mellitus with foot ulcer: CODE(S): E11.621 - Type 2 diabetes mellitus with foot ulcer; L97.509 - Non-pressure chronic ulcer of other part of unspecified foot with unspecified severity (4) Other specified peripheral vascular diseases: CODE(S): I73.89 - Other specified peripheral vascular diseases (5) CAD (coronary artery disease): CODE(S): I25.10 - Atherosclerotic heart disease of [place] coronary artery without angina pectoris (6) Alcoholic cirrhosis: CODE(S): K70.30 - Alcoholic cirrhosis of liver without ascites (7) Atherosclerosis of left lower extremity with ulceration: CODE(S): I70.249 - Atherosclerosis of [place] arteries of left leg with ulceration of unspecified site PLAN: Plan Patient seen and evaluated Patient does have history of noncompliance with follow-up with appropriate medical staffing for necessary procedures in addition to his uncontrolled DM type II with recent A1c of 14% Does have 25-year history of waxing waning ulceration at the medial aspect of the left heel. PCP has recommended vascular intervention for likely bypass. He has undergone revascularization in [place] for balloon angioplasty of the left lower extremity on 03/17/2025. He has informed me that he has established visit with GI specialist in [place] however this will be in May 2025. Continues to follow with cardiology and has established a provider in [place]. He did undergo revascularization in [place] with a vascular surgeon at [facility] as stated above. Predebridement measurement: 3.4 cm x 2.7 cm x 1.6 cm Debridement was not performed as noted in the clinical panel above. Debridement performed during visit 02/18/25 was noted to be nonaggressive in nature due to patient's underlying vascular disease. Postdebridement measurement 3.5 cm x 2.9 cm x 1.6 cm. Ulcerative site does probe to bone at the plantar medial aspect of the calcaneal tubercle. There is slight reduction size of ulceration with improvement in granulation tissue and less serosanguineous drainage versus previous visit due to assistance of wound vac closure. Dakin's wash performed at the ulcerative site and site was packed with iodoform packing gauze and dry sterile dressing. He is to change this daily. Will refrain from wound VAC was application to the ulcerative site as he is stating this is causing pain. Discussed giving reprieve from application of wound VAC today however will reapply on Saturday03/29/25 with plan to change out on . We have previously discussed stopping application of hydrogen peroxide. Discussed washing site with soap and water patting area dry with fresh clean towel/rag followed with Dakin's wash flushed by normal sterile saline. He may then continue betadine wet to dry dressing should the wound VAC fail/shut off. I have discussed with him the need to continue with the wound VAC. Discussed with him that the discomfort he is experiencing while the VAC is on is secondary to nerve irritation as the regenerate within this region of the ulceration. Discussed him having to require NitroTab to slow his heart is secondary to his psychosomatic response to the perceived pain. I have discussed again in detail the reasoning for the wound VAC and how this will help improve closure in addition to the expected length of time this would be required to wear prior to switching course of treatment. He is understanding of this and will proceed with reapplication on 03/29/25 as stated above. He was sent for radiograph 02/04/25 of the left foot [facility]. Radiograph demonstrates some air density projecting over the plantar soft tissues near the left heel region/plantar calcaneal spur. This could be potentially due to gas producing infection or recent penetrating injury. Close correlation with clinical exam findings recommended. Radiologist also states that if concern is for osteomyelitis MRI evaluation is recommended. I have independently reviewed the imaging and do concur with the radiographic read. He underwent MRI on 02/26/2025 of the left foot. Interpretation as large medial sided heel ulceration without soft tissue abscess. Minimal 1 cm area of calcaneal edema at the medial plantar fascia attachment. Cannot determine if reactive osteitis versus very early change of osteomyelitis. I have reviewed and discussed these images and findings with the patient. Due to possibility of osteomyelitis he was prescribed a course of oral doxycycline 100 mg twice daily x 6 weeks (stop date 04/15/2025). Wound VAC application was considered and applied to assist in closure until further intervention can be achieved. Rx gabapentin 100 mg 3 times daily x 30 days. 1 refill was given, however he reports this does not help him. OARS was checked. Rx oxycodone acetaminophen 5/325mg. 42 tablets were dispensed on 03/04/25. He is to take 1 tablet every 8 hours for his ulcerative pain. LEAS was ordered. LEAS demonstrate right DP waveform triphasic and PT waveform biphasic, right KESHIA 1.12, right PT indices 0.80, DP indices 0.80, right digital indices 0.52; left PT artery waveforms are monophasic and the left DP waveforms are monophasic, left KESHIA 1.17, l left PT indices 0.50, left DP indices 0.44, unable to obtain digital pressure. 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 Venous studies were negative for DVT. No evidence of reflux or valvular incompetence. He did see Dr. Batista on 02/19/25 to discuss vascular studies. They are recommending CTA abdominal pelvis with runoff to evaluate for atherosclerotic burden and determine interventional options pending recent kidney function lab. Vascular also awaiting further cardiology analysis and are refraining from initiation of Pletal at this time until status can be given. He is can to continue ASA daily. I did discuss with patient at length the need to follow with a vascular surgeon to reestablish blood flow to the lower extremity to aid in allowing for healing of this ulcerative site. I have also discussed the necessary need to follow-up with cardiology for intervention of his coronary artery disease which may likely require stent placing. I have also discussed the need to undergo diet modification and to take the necessary medications to aid in glycemic control to reduce his A1c from 14 to under 7. Discussed this is all necessary to aid in healing and for salvage of his lower extremity. I have discussed with him at length for failure to follow through on these will likely require an amputation of the lower extremity and possibly complicate more proximal amputation healing in addition to undue burden of stress on his heart which will likely lead to his passing. He voices understanding of this, however he has heard this from his PCP and has still not followed up as of 02/04/2025. He does report that he has now established cardiology visit and was seen 02/19/2025. Will follow-up with vascular as stated above. Discussed signs and symptoms of infection today. Discussed if he notices increasing redness around the ulcerative site that moves up the leg, purulent drainage from the wound site, increasing foul odor from the wound site, or if he experiences fever greater than 101 degree accompanied by nausea, vomiting, chills of these are signs of a progressing infection and he should report to the ED for IV antibiotics and for further evaluation. He voices understanding of this today. The following work up and care recommendations were made: Dressing: Wash site with Dakin's followed by normal sterile saline flush. Packed site with iodoform gauze and dry sterile dressing. This is to be changed daily. Wound VAC to be applied to left calcaneus on 03/29/2025. Should the VAC shut off or fail he is to remove dressing then apply Betadine wet-to-dry dressing. Change dressing daily. Wound VAC change every 3 days Wash: Do not get wet Tissue growth optimization: None Offload: Will wear surgical shoe at all times of ambulation Vascular: PVD, have ordered updated vascular studies awaiting results. Edema: None Infection: No signs of infection currently. Pain: May take [id number] Tylenol for pain Host factors: Noncompliance, CAD, PVD, uncontrolled DM type II, Pentecostalism status (Latter day) all complicate healing. I answered all the patient's questions. To return to the wound healing center in 1 week or call sooner if the patient has any questions or concerns.
--- NOTE | 2025-03-26 13:03 | WC ---
PHOTO 03/25/25 [facility]
== END 2025-03-27 23:59 | disposition home or self-care (01) ==
LOC: WC 10:15
PROVIDERS: PCP Family Medicine; Referring Provider Family Medicine; Visit Provider Student in an Organized Health Care Education/Training Program
DX: I70.244 Atherosclerosis of native arteries of left leg with ulceration of heel and midfoot (principal); E11.621 Type 2 diabetes mellitus with foot ulcer; L97.422 Non-pressure chronic ulcer of left heel and midfoot with fat layer exposed; K70.30 Alcoholic cirrhosis of liver without ascites; E11.42 Type 2 diabetes mellitus with diabetic polyneuropathy; Z79.4 Long term (current) use of insulin; E11.51 Type 2 diabetes mellitus with diabetic peripheral angiopathy without gangrene; W20.8XXS Other cause of strike by thrown, projected or falling object, sequela; I10 Essential (primary) hypertension; E78.5 Hyperlipidemia, unspecified; Z79.82 Long term (current) use of aspirin; Z79.84 Long term (current) use of oral hypoglycemic drugs; Z79.899 Other long term (current) drug therapy; L90.5 Scar conditions and fibrosis of skin
CPT/HCPCS: 11043; 97605; 97606; 99213; 99214; G0463

== ENCOUNTER 2025-04-22 10:30 | Outpatient (RCR) | payer MEDICAID, SELFPAY ==
[2025-03-28 00:33] VITALS: BP 162/92; PULSE 117; RESP 16; TEMP 37; BMI 31.4
[2025-03-29 13:36] VITALS: BP 131/99; PULSE 98; RESP 16; TEMP 35.4; BMI 31.4
[2025-04-01 10:45] VITALS: BP 109/79; PULSE 105; RESP 18; TEMP 36.6; BMI 31.4
--- NOTE | 2025-04-01 13:18 | PCM.WC.PN ---
History of Present Illness Date of Service: 04/01/25 Chief Complaint: Left medial heel ulceration History of Wound: Patient is a 54-year-old male who was referred to the wound care center by his PCP in [place] for a chronic left medial heel ulceration. Patient states that the ulceration has waxed and waned for 25 years following an old injury to his left foot in which steel sheet-metal was dropped onto his foot and ankle. He did undergo reconstructive surgery at that time to fixated despite initial physician recommendation of BKA. He has PMHx of uncontrolled DM type II with peripheral polyneuropathy with recent A1c of 14%, CAD with recommended cardiac bypass that was supposed to take place in [place] however never happened, pancreatic pseudocyst and alcoholic cirrhosis which was recommended to follow-up with GI in [place] however that also never happened, HTN, HLD with refusal to take statin. Patient also apparently has had long discussions with his primary care about the possibility of needing bypass to establish blood flow to heal the wound and would need a multiple specialist approach in order to achieve healing. Patient also has limitations not wanting to get blood products he needs for major surgery. Patient did have labs performed in [place] prior to visit. States that he had previously was on doxycycline and had completed this. He denies any N/V/F/chills. Denies further complaints. Subjective Subjective This is a 54-year-old male who returns to wound care center for continued care of the left medial heel ulceration. He has established appointment with cardiology and a GI specialist. Has seen cardiology and next GI appointment is April 15. He did undergo vascular studies , 02/18/2025. Reports he did undergo revascularization surgery on 03/17/2025 at [facility]. He did continue packing wound with iodoform gauze over the weekend and then was transition back to wound VAC on Saturday and returns today stating he did tolerate this better. Admits he hopes the VAC is not reapplied. Denies constitutional symptoms. Denies further complaints. Objective Data Objective Data Vital Signs: Vital Signs Temp Pulse Resp BP 97.8 F 105 H 18 109/79 04/01/25 10:45 04/01/25 10:45 04/01/25 10:45 04/01/25 10:45 Weight: 88.451 kg Body Mass Index (BMI) 31.4 Physical Exam Const alert, oriented x3 and no apparent distress General Appearance: cooperative HEENT normocephalic Eyes General Eye: normal appearance of both eyes Neck General: normal visual inspection Lymph Lymphatic: no lymphadenopathy noted and no lymphedema noted Resp normal respiratory effort Cardio regular rate and regular rhythm Extremity no calf tenderness Extremity Narrative: Left lower extremity: Vascular: DP and PT pulses nonpalpable. Monophasic pulses on Doppler. CFT is delayed and sluggish to digits. Normal temperature gradient. Pedal hair growth is diminished at digits. Neurologic: Gross sensation intact. Protective sensation is diminished consistent with diabetic peripheral polyneuropathy however does still have some sensation about the heel and ulcerative site. Musculoskeletal: Muscle strength 5 of 5 age-appropriate. There is pain to palpation around the ulcerative site at the calcaneus. No pain to palpation of calf. Dermatologic: There is a cicatrix noted along the medial aspect of the ankle consistent with prior surgical reconstruction following his injury. There is a medial calcaneal wall ulceration that extends to the plantar portion of the fat pad near the calcaneal tubercles. Ulceration is full-thickness with mixed fibrotic and granular portions of the wound. There is no malodor noted today as this is improved from prior visits. No soft tissue crepitus to palpation. No purulent drainage is expressible. Wound margins are macerated secondary to previous use of hydrogen peroxide and serosanginous drainage but are improving with current Betadine wet-to-dry. Ulcerative site does probe to bone along the plantar medial wall of the calcaneus. Skin no rashes or lesions noted and skin turgor normal Neuro moves all extremities Debridement Note Debridement Note Wound debrided: Left medial calcaneus Laterality: Left Wound Grade/Stage: Flores stage III Type of Debridement: Excisional debridement Anesthesia Used: 5% Lidocaine Gel and - (10 cc 1% lidocaine with epinephrine) Depth: Down to and including healthy tissue, in the subcutaneous layer and to muscle Percentage of wound debrided: 100 Instrument Used: 5mm curette and #15 blade Tissue Removed: Fibrous, devitalized subcutaneous, biofilm, slough Severity: Fat Layer Exposed Amount of bleeding with debridement: Mild Bleeding Controlled with: Compression and gauze Patient tolerated procedure: Patient tolerated procedure well Post-Debridement Measurements and Additional Note: Post-Debridement Measurements/Treatment EFRA - Nurse 1 - General Ulcer Assessment Start: 03/29/25 13:35 Freq: Status: Active Protocol: [facility] Activity Type Activity Date Activity User E-sign Co-sign Detail Recorded Client Recorded Date Recorded By Document 03/29/25 13:36 [id number] 03/29/25 13:36 Document 04/01/25 10:45 [id number] 04/01/25 10:53 03/29/25 04/01/25 13:36 10:45 - Today's Visit Information Type of service Nurse-only Follow-up Visit Visit (Physician/FAMILY MEDICINE RESIDENT ) Arrival Mode Ambulatory, Ambulatory Crutches Transfer Assistance None Patient Identification Verified (Name & Yes Yes ) Patient Requires Transmission-Based No No Precautions Height and Weight Body Mass Index (BMI) 31.4 31.4 BMI Classification Obese Obese Vital Signs Temperature (97.8 F-99.1 F) 95.8 F L 97.8 F Temperature Source Temporal Temporal Pulse Rate (60-100) 98 105 H Pulse Location Monitor Monitor Respiratory Rate (12-18) 16 18 Respiratory rate source Observation Blood Pressure (90/60-120/80) 131/99 H 109/79 Blood Pressure Mean (mm Hg) 109 89 Source Monitor Monitor Position Sitting Blood Pressure Location Right Arm History Since Last Visit- (Skip if this is Patient's initial visit) Have you changed medications since your No last visit? Any new allergies or adverse reactions No Had a fall/change in ADL's that may No increase risk of falls Signs or symptoms of abuse and/or No neglect since last visit Have you been in the hospital since your No last visit? Has dressing in place as prescribed Yes Has compression in place as prescribed N/A Has offloadiing in place as prescribed N/A Experienced any changes in pain level or No management Left Footwear Surgical Shoe with pressure relief insole Right Footwear Regular Shoe Pain Scale: 0-10 Numeric Is Patient Pain Free? Yes Yes - Nurse 1 - General Ulcer Measurement Start: 03/29/25 13:35 Freq: Status: Active Protocol: Activity Type Activity Date Activity User E-sign Co-sign Detail Recorded Client Recorded Date Recorded By Document 03/29/25 13:36 [id number] 03/29/25 13:36 Document 04/01/25 10:45 [id number] 04/01/25 10:53 03/29/25 04/01/25 13:36 10:45 Wound Center Nurse 1 1. LT MED HEEL -Current Size (cm) - Length 2.6 -Current Size (cm) - Width 3.4 -Current Size (cm) - Depth 1 -Total Square Cm 8.84 -Photo Taken Yes -Tunneling Position (O'clock) 7 -Tunneling Distance (cm) 1.4 -Exudate Amt Medium -Exudate Type Serosanguineous -Wound Margin Thickened & Rolled Under -Granulation Amt Large (67-100%) -Granulation Quality Red -Necrosis Amt None Present (0 %) -Structure Exposed N/A -Texture (Amena-wound Skin Appearance) Scarring -Moisture (Amena-wound Skin Appearance) Maceration -Color (Amena-wound Skin Appearance) No Abnormality -Temperature (Amena-wound Skin No Abnormality Appearance) (Pt Warm) -Ulcer Cleansing Soap and Water -Foul Odor after Cleansing No -Anesthetic Used 4% Lidocaine Solution Lower Limb Edema Present NA WC - Nurse 2 - General Ulcer CM Notes Start: 03/29/25 13:35 Freq: Status: Active Protocol: Activity Type Activity Date Activity User E-sign Co-sign Detail Recorded Client Recorded Date Recorded By Document 04/01/25 11:08 [facility] [id number] 04/01/25 11:29 [facility] 04/01/25 11:08 Wound Center Nurse 2 -Time 11:08 -Correct Patient Yes -Correct Side, Site, Position Yes -Correct Procedure Yes -Procedure Performed Yes -Type of Procedure Debridement -Clinical Debridement Muscle / Fascia -Tissue Removed Muscle,Fascia -Post Debridement (cm) - Length 3.5 -Post Debridement (cm) - Width 2.6 -Post Debridement (cm) - Depth 1.6 -Total Square (Post) (cm) 9.10 -Area of Debridement (cm) - Length 3.5 -Area of Debridement (cm) - Width 2.6 -Total Square (Area) (cm) 9.10 -Wound/Ulcer Outcome Not Healed -Ulcer Cleansing Rinsed/ Irrigated with Saline -Foul Odor after Cleansing No -Bioengineered Tissue No -Injectable Lidocaine w/ Epi (%) 1 -Injectable Lidocaine w/ Epi (mls) 10 -Bleeding Controlled with Pressure -Treatment Response Procedure Tolerated Well -Offloading Yes -Type of Offloading Surgical Shoe -Debridement - Muscle / Fascia, 1st Yes 20sq cm Pain Scale: 0-10 Numeric Is Patient Pain Free? Yes WC - Nurse 3 - General Ulcer D/C NN Start: 03/29/25 13:35 Freq: Status: Active Protocol: Activity Type Activity Date Activity User E-sign Co-sign Detail Recorded Client Recorded Date Recorded By Document 03/29/25 13:36 [id number] 03/29/25 13:37 Document 04/01/25 12:02 [id number] [id number] 04/01/25 12:04 KW 03/29/25 04/01/25 13:36 12:02 Wound Care Center Nurse 3 1. LT MED HEEL -Ulcer Cleansing Soap and Water -NPWT Application Charge NPWT </= 50 sq cm ($) -Setting (mmHg) 125 -Negative Pressure is Continuous -Primary Dressing Applied Nugauze, Iodoform 1in -Other Dressing dakins rinse, betadine soaked iodaform -Primary Dressing Covered/Secured with Dry Gauze & Roll Gauze, Secured with Tape -Nugauze, Iodoform 1in 1 LLE -Compression Wrap Nasim Wrap Pain Scale: 0-10 Numeric Is Patient Pain Free? 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: CODE(S): L97.424 - Non-pressure chronic ulcer of left heel and midfoot with necrosis of bone (2) Diabetes mellitus with diabetic polyneuropathy: CODE(S): E11.42 - Type 2 diabetes mellitus with diabetic polyneuropathy (3) Type 2 diabetes mellitus with foot ulcer: CODE(S): E11.621 - Type 2 diabetes mellitus with foot ulcer; L97.509 - Non-pressure chronic ulcer of other part of unspecified foot with unspecified severity (4) Other specified peripheral vascular diseases: CODE(S): I73.89 - Other specified peripheral vascular diseases (5) CAD (coronary artery disease): CODE(S): I25.10 - Atherosclerotic heart disease of [place] coronary artery without angina pectoris (6) Atherosclerosis of left lower extremity with ulceration: CODE(S): I70.249 - Atherosclerosis of [place] arteries of left leg with ulceration of unspecified site PLAN: Plan Patient seen and evaluated Patient does have history of noncompliance with follow-up with appropriate medical staffing for necessary procedures in addition to his uncontrolled DM type II with recent A1c of 14% Does have 25-year history of waxing waning ulceration at the medial aspect of the left heel. PCP has recommended vascular intervention for likely bypass. He has undergone revascularization in [place] for balloon angioplasty of the left lower extremity on 03/17/2025. He has informed me that he has established visit with GI specialist in [place] however this will be in May 2025. Continues to follow with cardiology and has established a provider in [place]. He did undergo revascularization in [place] with a vascular surgeon at [facility] as stated above. Predebridement measurement: 3.4 cm x 2.5 cm x 1.3 cm Debridement was not performed as noted in the clinical panel above. Debridement performed during visit 02/18/25 was noted to be nonaggressive in nature due to patient's underlying vascular disease. Postdebridement measurement 3.5 cm x 2.6 cm x 1.3 cm. Ulcerative site does probe to bone at the plantar medial aspect of the calcaneal tubercle. There is reduction size of ulceration with improvement in granulation tissue and less serosanguineous drainage versus previous visit due to assistance of wound vac closure. Dakin's wash performed at the ulcerative site and site was packed with iodoform packing gauze and dry sterile dressing. He is to change this daily. Will discontinue wound VAC at this time with improvement noted. Will return to iodoform packing gauze to the site to be changed daily. Plan to apply for advanced wound care product, EpiFix to be applied at next visit. We have previously discussed stopping application of hydrogen peroxide. Discussed washing site with soap and water patting area dry with fresh clean towel/rag followed with Dakin's wash flushed by normal sterile saline. He may then continue betadine wet to dry dressing should the wound VAC fail/shut off. He was sent for radiograph 02/04/25 of the left foot [facility]. Radiograph demonstrates some air density projecting over the plantar soft tissues near the left heel region/plantar calcaneal spur. This could be potentially due to gas producing infection or recent penetrating injury. Close correlation with clinical exam findings recommended. Radiologist also states that if concern is for osteomyelitis MRI evaluation is recommended. I have independently reviewed the imaging and do concur with the radiographic read. He underwent MRI on 02/26/2025 of the left foot. Interpretation as large medial sided heel ulceration without soft tissue abscess. Minimal 1 cm area of calcaneal edema at the medial plantar fascia attachment. Cannot determine if reactive osteitis versus very early change of osteomyelitis. I have reviewed and discussed these images and findings with the patient. Due to possibility of osteomyelitis he was prescribed a course of oral doxycycline 100 mg twice daily x 6 weeks (stop date 04/15/2025). Wound VAC application was considered and applied to assist in closure until further intervention can be achieved. Rx gabapentin 100 mg 3 times daily x 30 days. 1 refill was given, however he reports this does not help him. OARS was checked. Rx oxycodone acetaminophen 5/325mg. 42 tablets were dispensed on 03/04/25. He is to take 1 tablet every 8 hours for his ulcerative pain. LEAS was ordered. LEAS demonstrate right DP waveform triphasic and PT waveform biphasic, right KESHIA 1.12, right PT indices 0.80, DP indices 0.80, right digital indices 0.52; left PT artery waveforms are monophasic and the left DP waveforms are monophasic, left KESHIA 1.17, l left PT indices 0.50, left DP indices 0.44, unable to obtain digital pressure. 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 Venous studies were negative for DVT. No evidence of reflux or valvular incompetence. He did see Dr. Batista on 02/19/25 to discuss vascular studies. They are recommending CTA abdominal pelvis with runoff to evaluate for atherosclerotic burden and determine interventional options pending recent kidney function lab. Vascular also awaiting further cardiology analysis and are refraining from initiation of Pletal at this time until status can be given. He is can to continue ASA daily. I did discuss with patient at length the need to follow with a vascular surgeon to reestablish blood flow to the lower extremity to aid in allowing for healing of this ulcerative site. I have also discussed the necessary need to follow-up with cardiology for intervention of his coronary artery disease which may likely require stent placing. I have also discussed the need to undergo diet modification and to take the necessary medications to aid in glycemic control to reduce his A1c from 14 to under 7. Discussed this is all necessary to aid in healing and for salvage of his lower extremity. I have discussed with him at length for failure to follow through on these will likely require an amputation of the lower extremity and possibly complicate more proximal amputation healing in addition to undue burden of stress on his heart which will likely lead to his passing. He voices understanding of this, however he has heard this from his PCP and has still not followed up as of 02/04/2025. He does report that he has now established cardiology visit and was seen 02/19/2025. Will follow-up with vascular as stated above. Discussed signs and symptoms of infection today. Discussed if he notices increasing redness around the ulcerative site that moves up the leg, purulent drainage from the wound site, increasing foul odor from the wound site, or if he experiences fever greater than 101 degree accompanied by nausea, vomiting, chills of these are signs of a progressing infection and he should report to the ED for IV antibiotics and for further evaluation. He voices understanding of this today. The following work up and care recommendations were made: Dressing: Wash site with Dakin's followed by normal sterile saline flush. Packed site with iodoform gauze and dry sterile dressing. This is to be changed daily. Wash: Do not get wet Tissue growth optimization: None Offload: Will wear surgical shoe at all times of ambulation Vascular: PVD, have ordered updated vascular studies awaiting results. Edema: None Infection: No signs of infection currently. Pain: May take [id number] Tylenol for pain Host factors: Noncompliance, CAD, PVD, uncontrolled DM type II, Zoroastrian status (Nondenominational) all complicate healing. I answered all the patient's questions. To return to the wound healing center in 1 week or call sooner if the patient has any questions or concerns.
[2025-04-08 10:37] VITALS: BP 136/84; PULSE 108; RESP 16; TEMP 36.1; BMI 31.4
--- NOTE | 2025-04-08 12:05 | PCM.WC.PN ---
History of Present Illness Date of Service: 04/08/25 Chief Complaint: Left medial heel ulceration History of Wound: Patient is a 54-year-old male who was referred to the wound care center by his PCP in [place] for a chronic left medial heel ulceration. Patient states that the ulceration has waxed and waned for 25 years following an old injury to his left foot in which steel sheet-metal was dropped onto his foot and ankle. He did undergo reconstructive surgery at that time to fixated despite initial physician recommendation of BKA. 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 Patient also apparently has had long discussions with his primary care about the possibility of needing bypass to establish blood flow to heal the wound and would need a multiple specialist approach in order to achieve healing. Patient also has limitations not wanting to get blood products he needs for major surgery. Patient did have labs performed in [place] prior to visit. States that he had previously was on doxycycline and had completed this. He denies any N/V/F/chills. Denies further complaints. Subjective Subjective This is a 55-year-old male who returns to wound care center for continued care of the left medial heel ulceration. Now following with cardiology and a GI specialist. Has seen cardiology and next GI appointment is April 15. He did undergo vascular studies , 02/18/2025. Reports he did undergo revascularization surgery on 03/17/2025 at [facility]. He continues packing wound with iodoform gauze and states the wound is looking better. He states is is becoming less painful. Denies constitutional symptoms. Denies further complaints. Objective Data Objective Data Vital Signs: Vital Signs Temp Pulse Resp BP O2 Del Method 96.9 F L 108 H 16 136/84 H Room Air 04/08/25 10:37 04/08/25 10:37 04/08/25 10:37 04/08/25 10:37 04/08/25 10:37 Oxygen Delivery Method Room Air Weight: 88.451 kg Body Mass Index (BMI) 31.4 Physical Exam Const alert, oriented x3 and no apparent distress General Appearance: cooperative HEENT normocephalic Eyes General Eye: normal appearance of both eyes Neck General: normal visual inspection Lymph Lymphatic: no lymphadenopathy noted and no lymphedema noted Resp normal respiratory effort Cardio regular rate and regular rhythm Extremity no calf tenderness Extremity Narrative: Left lower extremity: Vascular: DP and PT pulses nonpalpable. Monophasic pulses on Doppler. CFT is delayed and sluggish to digits. Normal temperature gradient. Pedal hair growth is diminished at digits. Neurologic: Gross sensation intact. Protective sensation is diminished consistent with diabetic peripheral polyneuropathy however does still have some sensation about the heel and ulcerative site. Musculoskeletal: Muscle strength 5 of 5 age-appropriate. There is pain to palpation around the ulcerative site at the calcaneus. No pain to palpation of calf. Dermatologic: There is a cicatrix noted along the medial aspect of the ankle consistent with prior surgical reconstruction following his injury. There is a medial calcaneal wall ulceration that extends to the plantar portion of the fat pad near the calcaneal tubercles. Ulceration is full-thickness with mixed fibrotic and granular portions of the wound. There is no malodor noted today as this is improved from prior visits. No soft tissue crepitus to palpation. No purulent drainage is expressible. Wound margins are macerated secondary to previous use of hydrogen peroxide and serosanginous drainage but are improving with current Betadine wet-to-dry. Ulcerative site does probe to bone along the plantar medial wall of the calcaneus, but this is granulating in well. Skin no rashes or lesions noted and skin turgor normal Neuro moves all extremities Debridement Note Debridement Note Wound debrided: Left medial calcaneus Laterality: Left Wound Grade/Stage: Flores stage III Type of Debridement: Excisional debridement Anesthesia Used: 5% Lidocaine Gel Depth: Down to and including healthy tissue, in the subcutaneous layer and to muscle Percentage of wound debrided: 100 Instrument Used: 5mm curette Tissue Removed: Fibrous, devitalized subcutaneous, biofilm, slough Severity: Fat Layer Exposed Amount of bleeding with debridement: Mild Bleeding Controlled with: Compression and gauze Patient tolerated procedure: Patient tolerated procedure well Post-Debridement Measurements and Additional Note: Post-Debridement Measurements/Treatment EFRA - Nurse 1 - General Ulcer Assessment Start: 03/29/25 13:35 Freq: Status: Active Protocol: [facility] Activity Type Activity Date Activity User E-sign Co-sign Detail Recorded Client Recorded Date Recorded By Document 03/29/25 13:36 [id number] 03/29/25 13:36 JF Document 04/01/25 10:45 KW [id number] 04/01/25 10:53 KW Document 04/08/25 10:37 KW [id number] 04/08/25 10:38 KW 03/29/25 04/01/25 04/08/25 13:36 10:45 10:37 - Today's Visit Information Type of service Nurse-only Follow-up Visit Follow-up Visit Visit (Physician/COOLING MACHINE OPERATOR (Physician/COOLING MACHINE OPERATOR ) ) Arrival Mode Ambulatory, Ambulatory Ambulatory Crutches Transfer Assistance None Patient Identification Verified (Name & Yes Yes Yes ) Patient Requires Transmission-Based No No Precautions Height and Weight Body Mass Index (BMI) 31.4 31.4 31.4 BMI Classification Obese Obese Obese Vital Signs Temperature (97.8 F-99.1 F) 95.8 F L 97.8 F 96.9 F L Temperature Source Temporal Temporal Temporal Pulse Rate (60-100) 98 105 H 108 H Pulse Location Monitor Monitor Monitor Respiratory Rate (12-18) 16 18 16 Respiratory rate source Observation Observation Oxygen Delivery Method Room Air Blood Pressure (90/60-120/80) 131/99 H 109/79 136/84 H Blood Pressure Mean (mm Hg) 109 89 101 Source Monitor Monitor Monitor Position Sitting Semi-Fowlers Blood Pressure Location Right Arm Left Arm History Since Last Visit- (Skip if this is Patient's initial visit) Have you changed medications since your No No last visit? Any new allergies or adverse reactions No No Had a fall/change in ADL's that may No No increase risk of falls Signs or symptoms of abuse and/or No No neglect since last visit Have you been in the hospital since your No No last visit? Has dressing in place as prescribed Yes Yes Has compression in place as prescribed N/A Yes Has offloadiing in place as prescribed N/A Yes Experienced any changes in pain level or No No management Left Footwear Surgical Shoe Surgical Shoe with pressure with pressure relief insole relief insole Right Footwear Regular Shoe Regular Shoe Pain Scale: 0-10 Numeric Is Patient Pain Free? Yes Yes Yes - Nurse 1 - General Ulcer Measurement Start: 03/29/25 13:35 Freq: Status: Active Protocol: Activity Type Activity Date Activity User E-sign Co-sign Detail Recorded Client Recorded Date Recorded By Document 03/29/25 13:36 JF [id number] 03/29/25 13:36 JF Document 04/01/25 10:45 KW [id number] 04/01/25 10:53 KW Document 04/08/25 10:37 KW [id number] 04/08/25 10:38 KW 03/29/25 04/01/25 04/08/25 13:36 10:45 10:37 Wound Center Nurse 1 1. LT MED HEEL -Current Size (cm) - Length 2.6 2.3 -Current Size (cm) - Width 3.4 3.5 -Current Size (cm) - Depth 1 0.5 -Total Square Cm 8.84 8.05 -Date of Last Picture (Recall this 04/08/25 field) -Photo Taken Yes -Tunneling Position (O'clock) 7 -Tunneling Distance (cm) 1.4 -Exudate Amt Medium Medium -Exudate Type Serosanguineous Serosanguineous -Wound Margin Thickened & Distinct, Rolled Under Outline Attached -Granulation Amt Large (67-100%) Large (67-100%) -Granulation Quality Red Red -Necrosis Amt None Present (0 %) -Structure Exposed N/A -Texture (Amena-wound Skin Appearance) Scarring Assessed,Callus -Moisture (Amena-wound Skin Appearance) Maceration Assessed, Maceration -Color (Amena-wound Skin Appearance) No Abnormality Assessed -Temperature (Amena-wound Skin No Abnormality No Abnormality Appearance) (Pt Warm) (Pt Warm) -Tenderness on Palpation (Amena-wound No Skin Appearance) -Ulcer Cleansing Soap and Water Soap and Water -Foul Odor after Cleansing No No -Anesthetic Used 4% Lidocaine 5% Lidocaine Solution Gel Lower Limb Edema Present NA WC - Nurse 2 - General Ulcer CM Notes Start: 03/29/25 13:35 Freq: Status: Active Protocol: Activity Type Activity Date Activity User E-sign Co-sign Detail Recorded Client Recorded Date Recorded By Document 04/01/25 11:08 [facility] [id number] 04/01/25 11:29 [facility] Document 04/08/25 10:57 [facility] [id number] 04/08/25 11:04 [facility] 04/01/25 04/08/25 11:08 10:57 Wound Center Nurse 2 1. LT MED HEEL -Time 11:08 10:57 -Correct Patient Yes Yes -Correct Side, Site, Position Yes Yes -Correct Procedure Yes Yes -Procedure Performed Yes Yes -Type of Procedure Debridement Debridement -Clinical Debridement Muscle / Fascia Muscle / Fascia -Tissue Removed Muscle,Fascia Muscle,Fascia -Post Debridement (cm) - Length 3.5 3.7 -Post Debridement (cm) - Width 2.6 2.7 -Post Debridement (cm) - Depth 1.6 1 -Total Square (Post) (cm) 9.10 9.99 -Area of Debridement (cm) - Length 3.5 3.7 -Area of Debridement (cm) - Width 2.6 2.7 -Total Square (Area) (cm) 9.10 9.99 -Tunneling No -Undermining/Tunneling No -Circular Undermining No -Wound/Ulcer Outcome Not Healed Not Healed -Ulcer Cleansing Rinsed/ Rinsed/ Irrigated with Irrigated with Saline Saline -Foul Odor after Cleansing No No -Bioengineered Tissue No No -Injectable Lidocaine w/ Epi (%) 1 1 -Injectable Lidocaine w/ Epi (mls) 10 10 -Bleeding Controlled with Pressure Pressure -Treatment Response Procedure Procedure Tolerated Well Tolerated Well -Offloading Yes -Type of Offloading Surgical Shoe -Debridement - Muscle / Fascia, 1st Yes Yes 20sq cm Pain Scale: 0-10 Numeric Is Patient Pain Free? Yes Yes - Nurse 3 - General Ulcer D/C NN Start: 03/29/25 13:35 Freq: Status: Active Protocol: Activity Type Activity Date Activity User E-sign Co-sign Detail Recorded Client Recorded Date Recorded By Document 03/29/25 13:36 [id number] 03/29/25 13:37 Document 04/01/25 12:02 KW [id number] 04/01/25 12:04 KW Document 04/08/25 11:18 [id number] 04/08/25 11:19 03/29/25 04/01/25 04/08/25 13:36 12:02 11:18 Wound Care Center Nurse 3 1. LT MED HEEL -Ulcer Cleansing Soap and Water DAKINS -Foul Odor after Cleansing No -NPWT Application Charge NPWT </= 50 sq cm ($) -Setting (mmHg) 125 -Negative Pressure is Continuous -Primary Dressing Applied Nugauze, Nugauze, Iodoform 1in Iodoform 1in -Other Dressing dakins rinse, betadine soaked iodaform -Primary Dressing Covered/Secured with Dry Gauze & Dry Gauze & Roll Gauze, Roll Gauze, Secured with Secured with Tape Tape -Nugauze, Iodoform 1in 1 1 LLE -Lotion applied to leg before No compression wrap -Compression Wrap Nasim Wrap Nasim Wrap Pain Scale: 0-10 Numeric Is Patient Pain Free? 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: CODE(S): L97.424 - Non-pressure chronic ulcer of left heel and midfoot with necrosis of bone (2) Diabetes mellitus with diabetic polyneuropathy: CODE(S): E11.42 - Type 2 diabetes mellitus with diabetic polyneuropathy (3) Type 2 diabetes mellitus with foot ulcer: CODE(S): E11.621 - Type 2 diabetes mellitus with foot ulcer; L97.509 - Non-pressure chronic ulcer of other part of unspecified foot with unspecified severity (4) Other specified peripheral vascular diseases: CODE(S): I73.89 - Other specified peripheral vascular diseases (5) CAD (coronary artery disease): CODE(S): I25.10 - Atherosclerotic heart disease of [place] coronary artery without angina pectoris (6) 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 PCP has recommended vascular intervention for likely bypass. He has undergone revascularization in [place] for balloon angioplasty of the left lower extremity on 03/17/2025. He has informed me that he has established visit with GI specialist in [place] however this will be in May 2025. Continues to follow with cardiology and has established a provider in [place]. He did undergo revascularization in [place] with a vascular surgeon at [facility] as stated above. Predebridement measurement: 3.5 cm x 2.6 cm x 1.0 cm Debridement was not performed as noted in the clinical panel above. Debridement performed during visit 02/18/25 was noted to be nonaggressive in nature due to patient's underlying vascular disease. Postdebridement measurement 3.7 cm x 2.7 cm x 1.0 cm. Ulcerative site does probe to bone at the plantar medial aspect of the calcaneal tubercle. There is slight increase in size of ulceration with improvement in granulation tissue, depth, and less serosanguineous drainage versus previous visit. Dakin's wash performed at the ulcerative site and site was packed with iodoform packing gauze and dry sterile dressing. He is to change this daily. Will continue iodoform packing gauze to the site to be changed daily. Plan to apply for advanced wound care product, EpiFix to be applied at next visit. We have previously discussed stopping application of hydrogen peroxide. Discussed washing site with soap and water patting area dry with fresh clean towel/rag followed with Dakin's wash flushed by normal sterile saline. He may then continue betadine wet to dry dressing after packing with iodoform gauze. He was sent for radiograph 02/04/25 of the left foot [facility]. Radiograph demonstrates some air density projecting over the plantar soft tissues near the left heel region/plantar calcaneal spur. This could be potentially due to gas producing infection or recent penetrating injury. Close correlation with clinical exam findings recommended. Radiologist also states that if concern is for osteomyelitis MRI evaluation is recommended. I have independently reviewed the imaging and do concur with the radiographic read. He underwent MRI on 02/26/2025 of the left foot. Interpretation as large medial sided heel ulceration without soft tissue abscess. Minimal 1 cm area of calcaneal edema at the medial plantar fascia attachment. Cannot determine if reactive osteitis versus very early change of osteomyelitis. I have reviewed and discussed these images and findings with the patient. Due to possibility of osteomyelitis he was prescribed a course of oral doxycycline 100 mg twice daily x 6 weeks (stop date 04/15/2025). Rx gabapentin 100 mg 3 times daily x 30 days. 1 refill was given, however he reports this does not help him. OARS was checked. Rx oxycodone acetaminophen 5/325mg. 42 tablets were dispensed on 03/04/25. He is to take 1 tablet every 8 hours for his ulcerative pain. LEAS was ordered. LEAS demonstrate right DP waveform triphasic and PT waveform biphasic, right KESHIA 1.12, right PT indices 0.80, DP indices 0.80, right digital indices 0.52; left PT artery waveforms are monophasic and the left DP waveforms are monophasic, left KESHIA 1.17, l left PT indices 0.50, left DP indices 0.44, unable to obtain digital pressure. 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 Venous studies were negative for DVT. No evidence of reflux or valvular incompetence. He did see Dr. Batista on 02/19/25 to discuss vascular studies. They are recommending CTA abdominal pelvis with runoff to evaluate for atherosclerotic burden and determine interventional options pending recent kidney function lab. Vascular also awaiting further cardiology analysis and are refraining from initiation of Pletal at this time until status can be given. He is can to continue ASA daily. I did discuss with patient at length the need to follow with a vascular surgeon to reestablish blood flow to the lower extremity to aid in allowing for healing of this ulcerative site. I have also discussed the necessary need to follow-up with cardiology for intervention of his coronary artery disease which may likely require stent placing. I have also discussed the need to undergo diet modification and to take the necessary medications to aid in glycemic control to reduce his A1c from 14 to under 7. Discussed this is all necessary to aid in healing and for salvage of his lower extremity. I have discussed with him at length for failure to follow through on these will likely require an amputation of the lower extremity and possibly complicate more proximal amputation healing in addition to undue burden of stress on his heart which will likely lead to his passing. He voices understanding of this, however he has heard this from his PCP and has still not followed up as of 02/04/2025. He does report that he has now established cardiology visit and was seen 02/19/2025. Will follow-up with vascular as stated above. Discussed signs and symptoms of infection today. Discussed if he notices increasing redness around the ulcerative site that moves up the leg, purulent drainage from the wound site, increasing foul odor from the wound site, or if he experiences fever greater than 101 degree accompanied by nausea, vomiting, chills of these are signs of a progressing infection and he should report to the ED for IV antibiotics and for further evaluation. He voices understanding of this today. The following work up and care recommendations were made: Dressing: Wash site with Dakin's followed by normal sterile saline flush. Packed site with iodoform gauze and dry sterile dressing. This is to be changed daily. Wash: Do not get wet Tissue growth optimization: None Offload: Will wear surgical shoe at all times of ambulation Vascular: PVD, have ordered updated vascular studies awaiting results. Edema: None Infection: No signs of infection currently. Pain: May take [id number] Tylenol for pain Host factors: Noncompliance, CAD, PVD, uncontrolled DM type II, [employer] status (Catholic) all complicate healing. I answered all the patient's questions. To return to the wound healing center in 1 week or call sooner if the patient has any questions or concerns.
--- NOTE | 2025-04-09 08:30 | WC ---
PHOTO 04/08/25 LEFT [facility]
[2025-04-15 10:21] VITALS: BP 120/79; PULSE 93; RESP 18; TEMP 36.3; BMI 31.4
--- NOTE | 2025-04-15 12:29 | PN.PCM_ITS ---
History of Present Illness Date of Service: 04/15/25 Chief Complaint: Left medial heel ulceration History of Wound: Patient is a 54-year-old male who was referred to the wound care center by his PCP in [place] for a chronic left medial heel ulceration. Patient states that the ulceration has waxed and waned for 25 years following an old injury to his left foot in which steel sheet-metal was dropped onto his foot and ankle. He did undergo reconstructive surgery at that time to fixated despite initial physician recommendation of BKA. 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 Patient also apparently has had long discussions with his primary care about the possibility of needing bypass to establish blood flow to heal the wound and would need a multiple specialist a [facility] in order to achieve healing. Patient also has limitations not wanting to get blood products he needs for major surgery. Patient did have labs performed in [place] prior to visit. States that he had previously was on doxycycline and had completed this. He denies any N/V/F/chills. Denies further complaints. Subjective Subjective This is a 55-year-old male who returns to wound care center for continued care of the left medial heel ulceration. Continues to follow with cardiology and a GI specialist. Has seen cardiology and next GI appointment is today April 15. He is post revascularization surgery on 03/17/2025 at [facility]. He continues packing wound with iodoform gauze and states the wound continues looking better. He states it continuing to be less painful. Denies constitutional symptoms. Denies further complaints. Objective Data Objective Data Vital Signs: Vital Signs Temp Pulse Resp BP O2 Del Method 97.4 F L 93 18 120/79 Room Air 04/15/25 10:04/15/25 10:04/15/25 10:04/15/25 10:04/08/25 10:37 Oxygen Delivery Method Room Air Weight: 88.451 kg Body Mass Index (BMI) 31.4 Physical Exam Const alert, oriented x3 and no apparent distress General Appearance: cooperative HEENT normocephalic Eyes General Eye: normal appearance of both eyes Neck General: normal visual inspection Lymph Lymphatic: no lymphadenopathy noted and no lymphedema noted Resp normal respiratory effort Cardio regular rate and regular rhythm Extremity no calf tenderness Extremity Narrative: Left lower extremity: Vascular: DP and PT pulses nonpalpable. Monophasic pulses on Doppler. CFT is delayed and sluggish to digits. Normal temperature gradient. Pedal hair growth is diminished at digits. Neurologic: Gross sensation intact. Protective sensation is diminished consistent with diabetic peripheral polyneuropathy however does still have some sensation about the heel and ulcerative site. Musculoskeletal: Muscle strength 5 of 5 age-appropriate. There is pain to palpation around the ulcerative site at the calcaneus. No pain to palpation of calf. Dermatologic: There is a cicatrix noted along the medial aspect of the ankle consistent with prior surgical reconstruction following his injury. There is a medial calcaneal wall ulceration that extends to the plantar portion of the fat pad near the calcaneal tubercles. Ulceration is full-thickness with mixed fibrotic and granular portions of the wound. There is no malodor noted today as this is improved from prior visits. No soft tissue crepitus to palpation. No purulent drainage is expressible. Wound margins are macerated secondary to previous use of hydrogen peroxide and serosanginous drainage but are improving with current Betadine wet-to-dry. Ulcerative site does probe to bone along the plantar medial wall of the calcaneus, but this is granulating in well. Skin no rashes or lesions noted and skin turgor normal Neuro moves all extremities Debridement Note Debridement Note Wound debrided: Left medial calcaneus Laterality: Left Wound Grade/Stage: Flores stage II Type of Debridement: Excisional debridement Anesthesia Used: 5% Lidocaine Gel and - (9 cc 1% lidocaine with epinephrine) Depth: Down to and including healthy tissue, in the subcutaneous layer and to muscle Percentage of wound debrided: 100 Instrument Used: 5mm curette Tissue Removed: Fibrous, devitalized subcutaneous, biofilm, slough Severity: Fat Layer Exposed Amount of bleeding with debridement: Mild Bleeding Controlled with: Compression and gauze Patient tolerated procedure: Patient tolerated procedure well Post-Debridement Measurements and Additional Note: Post-Debridement Measurements/Treatment EFRA - Nurse 1 - General Ulcer Assessment Start: 03/29/25 13:35 Freq: Status: Active Protocol: [facility] Activity Type Activity Date Activity User E-sign Co-sign Detail Recorded Client Recorded Date Recorded By Document 03/29/25 13:36 JF [id number] 03/29/25 13:36 JF Document 04/01/25 10:45 KW [id number] 04/01/25 10:53 KW Document 04/08/25 10:37 KW [id number] 04/08/25 10:38 KW Document 04/15/25 10:21 DL [id number] 04/15/25 10:26 DL 03/29/25 04/01/25 04/08/25 13:36 10:45 10:37 WC - Today's Visit Information Type of service Nurse-only Follow-up Visit Follow-up Visit Visit (Physician/TRANSPORTATION DISPATCH MANAGER (Physician/TRANSPORTATION DISPATCH MANAGER ) ) Arrival Mode Ambulatory, Ambulatory Ambulatory Crutches Transfer Assistance None Patient Identification Verified (Name & Yes Yes Yes ) Patient Requires Transmission-Based No No Precautions Height and Weight Body Mass Index (BMI) 31.4 31.4 31.4 BMI Classification Obese Obese Obese Vital Signs Temperature (97.8 F-99.1 F) 95.8 F L 97.8 F 96.9 F L Temperature Source Temporal Temporal Temporal Pulse Rate (60-100) 98 105 H 108 H Pulse Location Monitor Monitor Monitor Respiratory Rate (12-18) 16 18 16 Respiratory rate source Observation Observation Oxygen Delivery Method Room Air Blood Pressure (90/60-120/80) 131/99 H 109/79 136/84 H Blood Pressure Mean (mm Hg) 109 89 101 Source Monitor Monitor Monitor Position Sitting Semi-Fowlers Blood Pressure Location Right Arm Left Arm History Since Last Visit- (Skip if this is Patient's initial visit) Have you changed medications since your No No last visit? Any new allergies or adverse reactions No No Had a fall/change in ADL's that may No No increase risk of falls Signs or symptoms of abuse and/or No No neglect since last visit Have you been in the hospital since your No No last visit? Has dressing in place as prescribed Yes Yes Has compression in place as prescribed N/A Yes Has offloadiing in place as prescribed N/A Yes Experienced any changes in pain level or No No management Left Footwear Surgical Shoe Surgical Shoe with pressure with pressure relief insole relief insole Right Footwear Regular Shoe Regular Shoe Pain Scale: 0-10 Numeric Is Patient Pain Free? Yes Yes Yes 04/15/25 10:21 WC - Today's Visit Information Type of service Follow-up Visit (Physician/TRANSPORTATION DISPATCH MANAGER ) Arrival Mode Ambulatory Transfer Assistance None Patient Identification Verified (Name & Yes ) Patient Requires Transmission-Based No Precautions Height and Weight Body Mass Index (BMI) 31.4 BMI Classification Obese Vital Signs Temperature (97.8 F-99.1 F) 97.4 F L Temperature Source Temporal Pulse Rate (60-100) 93 Pulse Location Monitor Respiratory Rate (12-18) 18 Respiratory rate source Observation Oxygen Delivery Method Blood Pressure (90/60-120/80) 120/79 Blood Pressure Mean (mm Hg) 92 Source Monitor Position Blood Pressure Location History Since Last Visit- (Skip if this is Patient's initial visit) Have you changed medications since your No last visit? Any new allergies or adverse reactions No Had a fall/change in ADL's that may No increase risk of falls Signs or symptoms of abuse and/or No neglect since last visit Have you been in the hospital since your No last visit? Has dressing in place as prescribed Yes Has compression in place as prescribed N/A Has offloadiing in place as prescribed Yes Experienced any changes in pain level or No management Left Footwear Right Footwear Pain Scale: 0-10 Numeric Is Patient Pain Free? Yes - Nurse 1 - General Ulcer Measurement Start: 03/29/25 13:35 Freq: Status: Active Protocol: Activity Type Activity Date Activity User E-sign Co-sign Detail Recorded Client Recorded Date Recorded By Document 03/29/25 13:36 JF [id number] 03/29/25 13:36 JF Document 04/01/25 10:45 KW [id number] 04/01/25 10:53 KW Document 04/08/25 10:37 KW [id number] 04/08/25 10:38 KW Document 04/15/25 10:21 DL [id number] 04/15/25 10:26 DL 03/29/25 04/01/25 04/08/25 13:36 10:45 10:37 Wound Center Nurse 1 1. LT MED HEEL -Current Size (cm) - Length 2.6 2.3 -Current Size (cm) - Width 3.4 3.5 -Current Size (cm) - Depth 1 0.5 -Total Square Cm 8.84 8.05 -Date of Last Picture (Recall this 04/08/25 field) -Photo Taken Yes -Tunneling Position (O'clock) 7 -Tunneling Distance (cm) 1.4 -Exudate Amt Medium Medium -Exudate Type Serosanguineous Serosanguineous -Wound Margin Thickened & Distinct, Rolled Under Outline Attached -Granulation Amt Large (67-100%) Large (67-100%) -Granulation Quality Red Red -Necrosis Amt None Present (0 %) -Necrotic Tissue Type -Structure Exposed N/A -Texture (Amena-wound Skin Appearance) Scarring Assessed,Callus -Moisture (Amena-wound Skin Appearance) Maceration Assessed, Maceration -Color (Amena-wound Skin Appearance) No Abnormality Assessed -Temperature (Amena-wound Skin No Abnormality No Abnormality Appearance) (Pt Warm) (Pt Warm) -Tenderness on Palpation (Amena-wound No Skin Appearance) -Ulcer Cleansing Soap and Water Soap and Water -Foul Odor after Cleansing No No -Anesthetic Used 4% Lidocaine 5% Lidocaine Solution Gel Lower Limb Edema Present NA 04/15/25 10:21 Wound Center Nurse 1 1. LT MED HEEL -Current Size (cm) - Length 2 -Current Size (cm) - Width 3.2 -Current Size (cm) - Depth 0.2 -Total Square Cm 6.4 -Date of Last Picture (Recall this field) -Photo Taken -Tunneling Position (O'clock) -Tunneling Distance (cm) -Exudate Amt Medium -Exudate Type Serosanguineous -Wound Margin Distinct, Outline Attached -Granulation Amt Large (67-100%) -Granulation Quality Red -Necrosis Amt Small (1-33%) -Necrotic Tissue Type Adherent Slough -Structure Exposed N/A -Texture (Amena-wound Skin Appearance) Scarring -Moisture (Amena-wound Skin Appearance) Maceration -Color (Amena-wound Skin Appearance) No Abnormality -Temperature (Amena-wound Skin No Abnormality Appearance) (Pt Warm) -Tenderness on Palpation (Amena-wound Skin Appearance) -Ulcer Cleansing Soap and Water -Foul Odor after Cleansing No -Anesthetic Used 5% Lidocaine Gel Lower Limb Edema Present WC - Nurse 2 - General Ulcer CM Notes Start: 03/29/25 13:35 Freq: Status: Active Protocol: Activity Type Activity Date Activity User E-sign Co-sign Detail Recorded Client Recorded Date Recorded By Document 04/01/25 11:08 [facility] [id number] 04/01/25 11:29 [facility] Document 04/08/25 10:57 [facility] [id number] 04/08/25 11:04 [facility] Document 04/15/25 11:17 [facility] [id number] 04/15/25 11:24 [facility] 04/01/25 04/08/25 04/15/25 11:08 10:57 11:17 Wound Center Nurse 2 1. LT MED HEEL -Time 11:08 10:57 11:17 -Correct Patient Yes Yes Yes -Correct Side, Site, Position Yes Yes Yes -Correct Procedure Yes Yes Yes -Procedure Performed Yes Yes Yes -Type of Procedure Debridement Debridement Debridement -Clinical Debridement Muscle / Fascia Muscle / Fascia Muscle / Fascia -Tissue Removed Muscle,Fascia Muscle,Fascia Muscle,Fascia -Post Debridement (cm) - Length 3.5 3.7 3.7 -Post Debridement (cm) - Width 2.6 2.7 2.7 -Post Debridement (cm) - Depth 1.6 1 0.8 -Total Square (Post) (cm) 9.10 9.99 9.99 -Area of Debridement (cm) - Length 3.5 3.7 3.7 -Area of Debridement (cm) - Width 2.6 2.7 2.7 -Total Square (Area) (cm) 9.10 9.99 9.99 -Tunneling No No -Undermining/Tunneling No No -Circular Undermining No No -Wound/Ulcer Outcome Not Healed Not Healed Not Healed -Ulcer Cleansing Rinsed/ Rinsed/ Rinsed/ Irrigated with Irrigated with Irrigated with Saline Saline Saline -Foul Odor after Cleansing No No No -Bioengineered Tissue No No -Injectable Lidocaine w/ Epi (%) 1 1 1 -Injectable Lidocaine w/ Epi (mls) 10 10 10 -Bleeding Controlled with Pressure Pressure Pressure -Treatment Response Procedure Procedure Procedure Tolerated Well Tolerated Well Tolerated Well -Offloading Yes -Type of Offloading Surgical Shoe -Debridement - Muscle / Fascia, 1st Yes Yes Yes 20sq cm Pain Scale: 0-10 Numeric Is Patient Pain Free? Yes Yes Yes WC - Nurse 3 - General Ulcer D/C NN Start: 03/29/25 13:35 Freq: Status: Active Protocol: Activity Type Activity Date Activity User E-sign Co-sign Detail Recorded Client Recorded Date Recorded By Document 03/29/25 13:36 JF [id number] 03/29/25 13:37 JF Document 04/01/25 12:02 KW [id number] 04/01/25 12:04 KW Document 04/08/25 11:18 [id number] 04/08/25 11:19 Document 04/15/25 11:42 BM [id number] 04/15/25 11:43 BM 03/29/25 04/01/25 04/08/25 13:36 12:02 11:18 Wound Care Center Nurse 3 1. LT MED HEEL -Ulcer Cleansing Soap and Water DAKINS -Foul Odor after Cleansing No -NPWT Application Charge NPWT </= 50 sq cm ($) -Setting (mmHg) 125 -Negative Pressure is Continuous -Primary Dressing Applied Nugauze, Nugauze, Iodoform 1in Iodoform 1in -Other Dressing dakins rinse, betadine soaked iodaform -Primary Dressing Covered/Secured with Dry Gauze & Dry Gauze & Roll Gauze, Roll Gauze, Secured with Secured with Tape Tape -Other Covering -Nugauze, Iodoform 1in 1 1 LLE -Lotion applied to leg before No compression wrap -Compression Wrap Nasim Wrap Nasim Wrap Pain Scale: 0-10 Numeric Is Patient Pain Free? Yes Yes Yes WC - Visit Discharge Discharge Condition Stable Stable Stable Ambulatory Status Ambulatory, Ambulatory Ambulatory Crutches Transportation Private Auto Private Auto Private Auto Medication Reconcilliation completed & No provided to patient/care provider Clinical Summary of Care Provided Yes Notes: wear surgical shoe 04/15/25 11:42 Wound Care Center Nurse 3 1. LT MED HEEL -Ulcer Cleansing DAKINS RINSE -Foul Odor after Cleansing -NPWT Application Charge -Setting (mmHg) -Negative Pressure is -Primary Dressing Applied -Other Dressing 1 IODOFORM TUCKED INTO UNDERMINED, -Primary Dressing Covered/Secured with Dry Gauze, Secured with Tape -Other Covering ABD, KERLIX -Nugauze, Iodoform 1in LLE -Lotion applied to leg before compression wrap -Compression Wrap Nasim Wrap Pain Scale: 0-10 Numeric Is Patient Pain Free? 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: CODE(S): L97.424 - Non-pressure chronic ulcer of left heel and midfoot with necrosis of bone (2) Diabetes mellitus with diabetic polyneuropathy: CODE(S): E11.42 - Type 2 diabetes mellitus with diabetic polyneuropathy (3) Type 2 diabetes mellitus with foot ulcer: CODE(S): E11.621 - Type 2 diabetes mellitus with foot ulcer; L97.509 - Non-pressure chronic ulcer of other part of unspecified foot with unspecified severity (4) Other specified peripheral vascular diseases: CODE(S): I73.89 - Other specified peripheral vascular diseases (5) CAD (coronary artery disease): CODE(S): I25.10 - Atherosclerotic heart disease of [place] coronary artery without angina pectoris (6) 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 PCP has recommended vascular intervention for likely bypass. He has undergone revascularization in [place] for balloon angioplasty of the left lower extremity on 03/17/2025. He has informed me that he has established visit with GI specialist in [place] however this will be in May 2025. Continues to follow with cardiology and has established a provider in [place]. He did undergo revascularization in [place] with a vascular surgeon at [facility] as stated above. Predebridement measurement: 3.5 cm x 2.6 cm x 0.8 cm Debridement was not performed as noted in the clinical panel above. Postdebridement measurement 3.7 cm x 2.7 cm x 0.8 cm. Ulcerative site does probe to bone at the plantar medial aspect of the calcaneal tubercle. There is no change in size of ulceration at this visit, however there is improvement in granulation tissue, depth, and less serosanguineous drainage versus previous visit. Dakin's wash performed at the ulcerative site and site was packed with iodoform packing gauze and dry sterile dressing. He is to change this daily. Will continue iodoform packing gauze to the site to be changed daily. Plan to apply for advanced wound care product, EpiFix to be applied at next visit. We have previously discussed stopping application of hydrogen peroxide. Discussed washing site with soap and water patting area dry with fresh clean towel/rag followed with Dakin's wash flushed by normal sterile saline. He may then continue betadine wet to dry dressing after packing with iodoform gauze. He was sent for radiograph 02/04/25 of the left foot [facility]. Radiograph demonstrates some air density projecting over the plantar soft tissues near the left heel region/plantar calcaneal spur. This could be potentially due to gas producing infection or recent penetrating injury. Close correlation with clinical exam findings recommended. Radiologist also states that if concern is for osteomyelitis MRI evaluation is recommended. I have independently reviewed the imaging and do concur with the radiographic read. He underwent MRI on 02/26/2025 of the left foot. Interpretation as large medial sided heel ulceration without soft tissue abscess. Minimal 1 cm area of calcaneal edema at the medial plantar fascia attachment. Cannot determine if reactive osteitis versus very early change of osteomyelitis. I have reviewed and discussed these images and findings with the patient. Due to possibility of osteomyelitis he was prescribed a course of oral doxycycline 100 mg twice daily x 6 weeks (stop date 04/15/2025). Rx gabapentin 100 mg 3 times daily x 30 days. 1 refill was given, however he reports this does not help him. OARS was checked. Rx oxycodone acetaminophen 5/325mg. 42 tablets were dispensed on 03/04/25. He is to take 1 tablet every 8 hours for his ulcerative pain. LEAS was ordered. LEAS demonstrate right DP waveform triphasic and PT waveform biphasic, right KESHIA 1.12, right PT indices 0.80, DP indices 0.80, right digital indices 0.52; left PT artery waveforms are monophasic and the left DP waveforms are monophasic, left KESHIA 1.17, l left PT indices 0.50, left DP indices 0.44, unable to obtain digital pressure. 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 Venous studies were negative for DVT. No evidence of reflux or valvular incompetence. He did see Dr. Batista on 02/19/25 to discuss vascular studies. They are recommending CTA abdominal pelvis with runoff to evaluate for atherosclerotic burden and determine interventional options pending recent kidney function lab. Vascular also awaiting further cardiology analysis and are refraining from initiation of Pletal at this time until status can be given. He is can to continue ASA daily. I did discuss with patient at length the need to follow with a vascular surgeon to reestablish blood flow to the lower extremity to aid in allowing for healing of this ulcerative site. I have also discussed the necessary need to follow-up with cardiology for intervention of his coronary artery disease which may likely require stent placing. I have also discussed the need to undergo diet modification and to take the necessary medications to aid in glycemic control to reduce his A1c from 14 to under 7. Discussed this is all necessary to aid in healing and for salvage of his lower extremity. I have discussed with him at length for failure to follow through on these will likely require an amputation of the lower extremity and possibly complicate more proximal amputation healing in addition to undue burden of stress on his heart which will likely lead to his passing. He voices understanding of this, however he has heard this from his PCP and has still not followed up as of 02/04/2025. He does report that he has now established cardiology visit and was seen 02/19/2025. Will follow-up with vascular as stated above. Discussed signs and symptoms of infection today. Discussed if he notices inc reasing redness around the ulcerative site that moves up the leg, purulent drainage from the wound site, increasing foul odor from the wound site, or if he experiences fever greater than 101 degree accompanied by nausea, vomiting, chills of these are signs of a progressing infection and he should report to the ED for IV antibiotics and for further evaluation. He voices understanding of this today. The following work up and care recommendations were made: Dressing: Wash site with Dakin's followed by normal sterile saline flush. Packed site with iodoform gauze and dry sterile dressing. This is to be changed daily. Wash: Do not get wet Tissue growth optimization: None Offload: Will wear surgical shoe at all times of ambulation Vascular: PVD, have ordered updated vascular studies awaiting results. Edema: None Infection: No signs of infection currently. Pain: May take [id number] Tylenol for pain Host factors: Noncompliance, CAD, PVD, uncontrolled DM type II, [employer]ism status (Orthodox) all complicate healing. I answered all the patient's questions. To return to the wound healing center in 1 week or call sooner if the patient has any questions or concerns.
[2025-04-22 10:34] VITALS: BP 136/85; PULSE 102; RESP 18; TEMP 36.4; BMI 31.4
--- NOTE | 2025-04-22 11:13 | PN.PCM_ITS ---
History of Present Illness Date of Service: 04/22/25 Chief Complaint: Left medial heel ulceration History of Wound: Patient is a 54-year-old male who was referred to the wound care center by his PCP in [place] for a chronic left medial heel ulceration. Patient states that the ulceration has waxed and waned for 25 years following an old injury to his left foot in which steel sheet-metal was dropped onto his foot and ankle. He did undergo reconstructive surgery at that time to fixated despite initial physician recommendation of BKA. 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 Patient also apparently has had long discussions with his primary care about the possibility of needing bypass to establish blood flow to heal the wound and [facility]. Patient also has limitations not wanting to get blood products he needs for major surgery. Patient did have labs performed in [place] prior to visit. States that he had previously was on doxycycline and had completed this. He denies any N/V/F/chills. Denies further complaints. Subjective Subjective This is a 55-year-old male who returns to wound care center for continued care of the left medial heel ulceration. Continues to follow with cardiology and a GI specialist. Has seen cardiology and next GI appointment is today April 15. He is post revascularization surgery on 03/17/2025 at [facility]. He continues packing wound with iodoform gauze and states the wound continues looking better. States he can see it is healing well. He states it continuing to be less painful. Denies constitutional symptoms. Denies further complaints. Objective Data Objective Data Vital Signs: Vital Signs Temp Pulse Resp BP O2 Del Method 97.6 F L 102 H 18 136/85 H Room Air 04/22/25 10:34 04/22/25 10:34 04/22/25 10:34 04/22/25 10:34 04/08/25 10:37 Oxygen Delivery Method Room Air Weight: 88.451 kg Body Mass Index (BMI) 31.4 Physical Exam Const alert, oriented x3 and no apparent distress General Appearance: cooperative HEENT normocephalic Eyes General Eye: normal appearance of both eyes Neck General: normal visual inspection Lymph Lymphatic: no lymphadenopathy noted and no lymphedema noted Resp normal respiratory effort Cardio regular rate and regular rhythm Extremity no calf tenderness Extremity Narrative: Left lower extremity: Vascular: DP and PT pulses nonpalpable. Monophasic pulses on Doppler. CFT is delayed and sluggish to digits. Normal temperature gradient. Pedal hair growth is diminished at digits. Neurologic: Gross sensation intact. Protective sensation is diminished consistent with diabetic peripheral polyneuropathy however does still have some sensation about the heel and ulcerative site. Musculoskeletal: Muscle strength 5 of 5 age-appropriate. There is pain to palpation around the ulcerative site at the calcaneus. No pain to palpation of calf. Dermatologic: There is a cicatrix noted along the medial aspect of the ankle consistent with prior surgical reconstruction following his injury. There is a medial calcaneal wall ulceration that extends to the plantar portion of the fat pad near the calcaneal tubercles. Ulceration is full-thickness with mixed fibrotic and granular portions of the wound. There is no malodor noted today as this is improved from prior visits. No soft tissue crepitus to palpation. No purulent drainage is expressible. Wound margins are macerated secondary to previous use of hydrogen peroxide and serosanginous drainage but are improving with current Betadine wet-to-dry. Ulcerative site does probe to bone along the plantar medial wall of the calcaneus, but this is granulating in well. Skin no rashes or lesions noted and skin turgor normal Neuro moves all extremities Debridement Note Debridement Note Wound debrided: Left medial calcaneus Laterality: Left Wound Grade/Stage: Flores stage II Type of Debridement: Excisional debridement Anesthesia Used: 5% Lidocaine Gel and - (8 cc 1% lidocaine with epinephrine) Depth: Down to and including healthy tissue, in the subcutaneous layer and to muscle Percentage of wound debrided: 100 Instrument Used: 7mm curette Tissue Removed: Fibrous, devitalized subcutaneous, biofilm, slough Severity: Fat Layer Exposed Amount of bleeding with debridement: Mild Bleeding Controlled with: Compression and gauze Patient tolerated procedure: Patient tolerated procedure well Post-Debridement Measurements and Additional Note: Post-Debridement Measurements/Treatment WC - Nurse 1 - General Ulcer Assessment Start: 03/29/25 13:35 Freq: Status: Active Protocol: EFRA.LOWEXT Activity Type Activity Date Activity User E-sign Co-sign Detail Recorded Client Recorded Date Recorded By Document 03/29/25 13:36 JF [id number] 03/29/25 13:36 JF Document 04/01/25 10:45 KW [id number] 04/01/25 10:53 KW Document 04/08/25 10:37 KW [id number] 04/08/25 10:38 KW Document 04/15/25 10:21 DL [id number] 04/15/25 10:26 DL Document 04/22/25 10:34 DL [id number] 04/22/25 10:39 DL 03/29/25 04/01/25 04/08/25 13:36 10:45 10:37 WC - Today's Visit Information Type of service Nurse-only Follow-up Visit Follow-up Visit Visit (Physician/PING PONG TABLE ASSEMBLER (Physician/PING PONG TABLE ASSEMBLER ) ) Arrival Mode Ambulatory, Ambulatory Ambulatory Crutches Transfer Assistance None Patient Identification Verified (Name & Yes Yes Yes ) Patient Requires Transmission-Based No No Precautions Height and Weight Body Mass Index (BMI) 31.4 31.4 31.4 BMI Classification Obese Obese Obese Vital Signs Temperature (97.8 F-99.1 F) 95.8 F L 97.8 F 96.9 F L Temperature Source Temporal Temporal Temporal Pulse Rate (60-100) 98 105 H 108 H Pulse Location Monitor Monitor Monitor Respiratory Rate (12-18) 16 18 16 Respiratory rate source Observation Observation Oxygen Delivery Method Room Air Blood Pressure (90/60-120/80) 131/99 H 109/79 136/84 H Blood Pressure Mean (mm Hg) 109 89 101 Source Monitor Monitor Monitor Position Sitting Semi-Fowlers Blood Pressure Location Right Arm Left Arm History Since Last Visit- (Skip if this is Patient's initial visit) Have you changed medications since your No No last visit? Any new allergies or adverse reactions No No Had a fall/change in ADL's that may No No increase risk of falls Signs or symptoms of abuse and/or No No neglect since last visit Have you been in the hospital since your No No last visit? Has dressing in place as prescribed Yes Yes Has compression in place as prescribed N/A Yes Has offloadiing in place as prescribed N/A Yes Experienced any changes in pain level or No No management Left Footwear Surgical Shoe Surgical Shoe with pressure with pressure relief insole relief insole Right Footwear Regular Shoe Regular Shoe Pain Scale: 0-10 Numeric Is Patient Pain Free? Yes Yes Yes 04/15/25 04/22/25 10:21 10:34 WC - Today's Visit Information Type of service Follow-up Visit Follow-up Visit (Physician/PING PONG TABLE ASSEMBLER (Physician/PING PONG TABLE ASSEMBLER ) ) Arrival Mode Ambulatory Ambulatory Transfer Assistance None None Patient Identification Verified (Name & Yes Yes ) Patient Requires Transmission-Based No No Precautions Height and Weight Body Mass Index (BMI) 31.4 31.4 BMI Classification Obese Obese Vital Signs Temperature (97.8 F-99.1 F) 97.4 F L 97.6 F L Temperature Source Temporal Temporal Pulse Rate (60-100) 93 102 H Pulse Location Monitor Monitor Respiratory Rate (12-18) 18 18 Respiratory rate source Observation Oxygen Delivery Method Blood Pressure (90/60-120/80) 120/79 136/85 H Blood Pressure Mean (mm Hg) 92 102 Source Monitor Monitor Position Blood Pressure Location History Since Last Visit- (Skip if this is Patient's initial visit) Have you changed medications since your No No last visit? Any new allergies or adverse reactions No No Had a fall/change in ADL's that may No No increase risk of falls Signs or symptoms of abuse and/or No No neglect since last visit Have you been in the hospital since your No No last visit? Has dressing in place as prescribed Yes Yes Has compression in place as prescribed N/A Yes Has offloadiing in place as prescribed Yes Yes Experienced any changes in pain level or No No management Left Footwear Right Footwear Pain Scale: 0-10 Numeric Is Patient Pain Free? Yes Yes - Nurse 1 - General Ulcer Measurement Start: 03/29/25 13:35 Freq: Status: Active Protocol: Activity Type Activity Date Activity User E-sign Co-sign Detail Recorded Client Recorded Date Recorded By Document 03/29/25 13:36 JF [id number] 03/29/25 13:36 JF Document 04/01/25 10:45 KW [id number] 04/01/25 10:53 KW Document 04/08/25 10:37 KW [id number] 04/08/25 10:38 KW Document 04/15/25 10:21 DL [id number] 04/15/25 10:26 DL Document 04/22/25 10:34 DL [id number] 04/22/25 10:39 DL 03/29/25 04/01/25 04/08/25 13:36 10:45 10:37 Wound Center Nurse 1 1. LT MED HEEL -Current Size (cm) - Length 2.6 2.3 -Current Size (cm) - Width 3.4 3.5 -Current Size (cm) - Depth 1 0.5 -Total Square Cm 8.84 8.05 -Date of Last Picture (Recall this 04/08/25 field) -Photo Taken Yes -Tunneling Position (O'clock) 7 -Tunneling Distance (cm) 1.4 -Undermining/Tunneling Starts (O'clock ) -Undermining/Tunneling Ends (O'clock) -Maximum Distance (cm) -Exudate Amt Medium Medium -Exudate Type Serosanguineous Serosanguineous -Wound Margin Thickened & Distinct, Rolled Under Outline Attached -Granulation Amt Large (67-100%) Large (67-100%) -Granulation Quality Red Red -Necrosis Amt None Present (0 %) -Necrotic Tissue Type -Structure Exposed N/A -Texture (Amena-wound Skin Appearance) Scarring Assessed,Callus -Moisture (Amena-wound Skin Appearance) Maceration Assessed, Maceration -Color (Amena-wound Skin Appearance) No Abnormality Assessed -Temperature (Amena-wound Skin No Abnormality No Abnormality Appearance) (Pt Warm) (Pt Warm) -Tenderness on Palpation (Amena-wound No Skin Appearance) -Ulcer Cleansing Soap and Water Soap and Water -Foul Odor after Cleansing No No -Anesthetic Used 4% Lidocaine 5% Lidocaine Solution Gel Lower Limb Edema Present NA 04/15/25 04/22/25 10:21 10:34 Wound Center Nurse 1 1. LT MED HEEL -Current Size (cm) - Length 2 1.8 -Current Size (cm) - Width 3.2 2.4 -Current Size (cm) - Depth 0.2 0.1 -Total Square Cm 6.4 4.32 -Date of Last Picture (Recall this field) -Photo Taken -Tunneling Position (O'clock) -Tunneling Distance (cm) -Undermining/Tunneling Starts (O'clock 6 ) -Undermining/Tunneling Ends (O'clock) 7 -Maximum Distance (cm) 0.3 -Exudate Amt Medium Medium -Exudate Type Serosanguineous Serosanguineous -Wound Margin Distinct, Thickened & Outline Rolled Under Attached -Granulation Amt Large (67-100%) Large (67-100%) -Granulation Quality Red -Necrosis Amt Small (1-33%) Small (1-33%) -Necrotic Tissue Type Adherent Slough Adherent Slough -Structure Exposed N/A N/A -Texture (Amena-wound Skin Appearance) Scarring Scarring -Moisture (Amena-wound Skin Appearance) Maceration Maceration -Color (Amena-wound Skin Appearance) No Abnormality No Abnormality -Temperature (Amena-wound Skin No Abnormality No Abnormality Appearance) (Pt Warm) (Pt Warm) -Tenderness on Palpation (Amena-wound No Skin Appearance) -Ulcer Cleansing Soap and Water Soap and Water -Foul Odor after Cleansing No No -Anesthetic Used 5% Lidocaine 5% Lidocaine Gel Gel Lower Limb Edema Present WC - Nurse 2 - General Ulcer CM Notes Start: 03/29/25 13:35 Freq: Status: Active Protocol: Activity Type Activity Date Activity User E-sign Co-sign Detail Recorded Client Recorded Date Recorded By Document 04/01/25 11:08 [facility] [id number] 04/01/25 11:29 [facility] Document 04/08/25 10:57 [facility] [id number] 04/08/25 11:04 [employer] Document 04/15/25 11:17 [facility] [id number] 04/15/25 11:24 [facility] Document 04/22/25 10:45 [facility] [id number] 04/22/25 10:55 [facility] 04/01/25 04/08/25 04/15/25 11:08 10:57 11:17 Wound Center Nurse 2 1. LT MED HEEL -Time 11:08 10:57 11:17 -Correct Patient Yes Yes Yes -Correct Side, Site, Position Yes Yes Yes -Correct Procedure Yes Yes Yes -Procedure Performed Yes Yes Yes -Type of Procedure Debridement Debridement Debridement -Clinical Debridement Muscle / Fascia Muscle / Fascia Muscle / Fascia -Tissue Removed Muscle,Fascia Muscle,Fascia Muscle,Fascia -Post Debridement (cm) - Length 3.5 3.7 3.7 -Post Debridement (cm) - Width 2.6 2.7 2.7 -Post Debridement (cm) - Depth 1.6 1 0.8 -Total Square (Post) (cm) 9.10 9.99 9.99 -Area of Debridement (cm) - Length 3.5 3.7 3.7 -Area of Debridement (cm) - Width 2.6 2.7 2.7 -Total Square (Area) (cm) 9.10 9.99 9.99 -Tunneling No No -Undermining/Tunneling No No -Circular Undermining No No -Wound/Ulcer Outcome Not Healed Not Healed Not Healed -Ulcer Cleansing Rinsed/ Rinsed/ Rinsed/ Irrigated with Irrigated with Irrigated with Saline Saline Saline -Foul Odor after Cleansing No No No -Bioengineered Tissue No No -Type of Bioengineered Tissue -Expiration Date -Product Lot Number -Percent Used -Lot number of Saline Used -Injectable Lidocaine w/ Epi (%) 1 1 1 -Injectable Lidocaine w/ Epi (mls) 10 10 10 -Bleeding Controlled with Pressure Pressure Pressure -Treatment Response Procedure Procedure Procedure Tolerated Well Tolerated Well Tolerated Well -Offloading Yes -Type of Offloading Surgical Shoe -Debridement - Subq, 1st 20sq cm -Debridement - Muscle / Fascia, 1st Yes Yes Yes 20sq cm -Apply Skin Sub - 1st 25 sq cm - Feet -Epifix Mesh Application 1-4 (per sq cm) Pain Scale: 0-10 Numeric Is Patient Pain Free? Yes Yes Yes 04/22/25 10:45 Wound Center Nurse 2 1. LT MED HEEL -Time 10:46 -Correct Patient Yes -Correct Side, Site, Position Yes -Correct Procedure Yes -Procedure Performed Yes -Type of Procedure Debridement -Clinical Debridement Subcutaneous -Tissue Removed Subcutaneous -Post Debridement (cm) - Length 2.4 -Post Debridement (cm) - Width 3.4 -Post Debridement (cm) - Depth 0.5 -Total Square (Post) (cm) 8.16 -Area of Debridement (cm) - Length 2.4 -Area of Debridement (cm) - Width 3.4 -Total Square (Area) (cm) 8.16 -Tunneling No -Undermining/Tunneling No -Circular Undermining No -Wound/Ulcer Outcome Not Healed -Ulcer Cleansing Rinsed/ Irrigated with Saline -Foul Odor after Cleansing No -Bioengineered Tissue Yes -Type of Bioengineered Tissue Epifix Mesh -Expiration Date 08/28/29 -Product Lot Number [id number] -Percent Used 100 -Lot number of Saline Used [id number] -Injectable Lidocaine w/ Epi (%) -Injectable Lidocaine w/ Epi (mls) -Bleeding Controlled with Pressure -Treatment Response Procedure Tolerated Well -Offloading -Type of Offloading -Debridement - Subq, 1st 20sq cm No -Debridement - Muscle / Fascia, 1st 20sq cm -Apply Skin Sub - 1st 25 sq cm - Feet 1 -Epifix Mesh Application 1-4 (per sq 11 cm) Pain Scale: 0-10 Numeric Is Patient Pain Free? Yes - Nurse 3 - General Ulcer D/C NN Start: 03/29/25 13:35 Freq: Status: Active Protocol: Activity Type Activity Date Activity User E-sign Co-sign Detail Recorded Client Recorded Date Recorded By Document 03/29/25 13:36 JF [id number] 03/29/25 13:37 JF Document 04/01/25 12:02 KW [id number] 04/01/25 12:04 KW Document 04/08/25 11:18 GM [id number] 04/08/25 11:19 GM Document 04/15/25 11:42 BM [id number] 04/15/25 11:43 BM Document 04/22/25 11:06 BM [id number] 04/22/25 11:07 BMF 03/29/25 04/01/25 04/08/25 13:36 12:02 11:18 Wound Care Center Nurse 3 1. LT MED HEEL -Ulcer Cleansing Soap and Water DAKINS -Foul Odor after Cleansing No -NPWT Application Charge NPWT </= 50 sq cm ($) -Setting (mmHg) 125 -Negative Pressure is Continuous -Primary Dressing Applied Nugauze, Nugauze, Iodoform 1in Iodoform 1in -Other Dressing dakins rinse, betadine soaked iodaform -Primary Dressing Covered/Secured with Dry Gauze & Dry Gauze & Roll Gauze, Roll Gauze, Secured with Secured with Tape Tape -Other Covering -Aquacel Extra -Nugauze, Iodoform 1in 1 1 LLE -Lotion applied to leg before No compression wrap -Compression Wrap Nasim Wrap Nasim Wrap Treatment Response Pain Scale: 0-10 Numeric Is Patient Pain Free? Yes Yes Yes - Visit Discharge Discharge Condition Stable Stable Stable Ambulatory Status Ambulatory, Ambulatory Ambulatory Crutches Transportation Private Auto Private Auto Private Auto Medication Reconcilliation completed & No provided to patient/care provider Clinical Summary of Care Provided Yes Notes: wear surgical shoe 04/15/25 04/22/25 11:42 11:06 Wound Care Center Nurse 3 1. LT MED HEEL -Ulcer Cleansing DAKINS RINSE -Foul Odor after Cleansing -NPWT Application Charge -Setting (mmHg) -Negative Pressure is -Primary Dressing Applied Aquacel Extra -Other Dressing 1 IODOFORM epimesh TUCKED INTO UNDERMINED, -Primary Dressing Covered/Secured with Dry Gauze, Dry Gauze & Secured with Roll Gauze, Tape Secured with Tape -Other Covering ABD, KERLIX abd, kerlix -Aquacel Extra 2 -Nugauze, Iodoform 1in LLE -Lotion applied to leg before compression wrap -Compression Wrap Nasim Wrap Nasim Wrap Treatment Response Procedure Tolerated Well Pain Scale: 0-10 Numeric Is Patient Pain Free? 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: CODE(S): L97.424 - Non-pressure chronic ulcer of left heel and midfoot with necrosis of bone (2) Diabetes mellitus with diabetic polyneuropathy: CODE(S): E11.42 - Type 2 diabetes mellitus with diabetic polyneuropathy (3) Type 2 diabetes mellitus with foot ulcer: CODE(S): E11.621 - Type 2 diabetes mellitus with foot ulcer; L97.509 - Non-pressure chronic ulcer of other part of unspecified foot with unspecified severity (4) Other specified peripheral vascular diseases: CODE(S): I73.89 - Other specified peripheral vascular diseases (5) CAD (coronary artery disease): CODE(S): I25.10 - Atherosclerotic heart disease of [place] coronary artery without angina pectoris (6) 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 PCP has recommended vascular intervention for likely bypass. He has undergone revascularization in [place] for balloon angioplasty of the left lower extremity on 03/17/2025. He has informed me that he has established visit with GI specialist in [place] however this will be in May 2025. Continues to follow with cardiology and has established a provider in [place]. He did undergo revascularization in [place] with a vascular surgeon at [facility] as stated above. Predebridement measurement: 3.3 cm x 2.3 cm x 0.5 cm Debridement was performed as noted in the clinical panel above. Postdebridement measurement 3.4 cm x 2.4 cm x 0.5 cm. Ulcerative site did probe to bone at the plantar medial aspect of the calcaneal tubercle, but has been granulating in well. There is reduction in size of ulceration at this visit with continued improvement in granulation tissue, depth, and less serosanguineous drainage versus previous visit. He has been approved for for advanced wound care product, EpiFix. Ulcerative site did undergo application of EpiFix graft #1. No signs of infection at graft site. Site was then dressed with Adaptic touch and anchored with Steri-Strips. Aquacel Ag applied over the Adaptic touch with dry sterile dressing. He is to change outer dressings as needed. He was instructed to keep the site clean and dry and to utilize cast bag when showering to maintain compliance. We have previously discussed stopping application of hydrogen peroxide. Discussed washing site with soap and water patting area dry with fresh clean towel/rag followed with Dakin's wash flushed by normal sterile saline. He may then continue betadine wet to dry dressing after packing with iodoform gauze. He was sent for radiograph 02/04/25 of the left foot [facility]. Radiograph demonstrates some air density projecting over the plantar soft tissues near the left heel region/plantar calcaneal spur. This could be potentially due to gas producing infection or recent penetrating injury. Close correlation with clinical exam findings recommended. Radiologist also states that if concern is for osteomyelitis MRI evaluation is recommended. I have i ndependently reviewed the imaging and do concur with the radiographic read. He underwent MRI on 02/26/2025 of the left foot. Interpretation as large medial sided heel ulceration without soft tissue abscess. Minimal 1 cm area of calcaneal edema at the medial plantar fascia attachment. Cannot determine if reactive osteitis versus very early change of osteomyelitis. I have reviewed and discussed these images and findings with the patient. Due to possibility of osteomyelitis he was prescribed a course of oral doxycycline 100 mg twice daily x 6 weeks (stop date 04/15/2025). Rx gabapentin 100 mg 3 times daily x 30 days. 1 refill was given, however he reports this does not help him. OARS was checked. Rx oxycodone acetaminophen 5/325mg. 42 tablets were dispensed on 03/04/25. He is to take 1 tablet every 8 hours for his ulcerative pain. LEAS was ordered. LEAS demonstrate right DP waveform triphasic and PT waveform biphasic, right KESHIA 1.12, right PT indices 0.80, DP indices 0.80, right digital indices 0.52; left PT artery waveforms are monophasic and the left DP waveforms are monophasic, left KESHIA 1.17, l left PT indices 0.50, left DP indices 0.44, unable to obtain digital pressure. 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 Venous studies were negative for DVT. No evidence of reflux or valvular incompetence. He did see Dr. Batista on 02/19/25 to discuss vascular studies. They are recommending CTA abdominal pelvis with runoff to evaluate for atherosclerotic burden and determine interventional options pending recent kidney function lab. Vascular also awaiting further cardiology analysis and are refraining from initiation of Pletal at this time until status can be given. He is can to continue ASA daily. I did discuss with patient at length the need to follow with a vascular surgeon to reestablish blood flow to the lower extremity to aid in allowing for healing of this ulcerative site. I have also discussed the necessary need to follow-up with cardiology for intervention of his coronary artery disease which may likely require stent placing. I have also discussed the need to undergo diet modification and to take the necessary medications to aid in glycemic control to reduce his A1c from 14 to under 7. Discussed this is all necessary to aid in healing and for salvage of his lower extremity. I have discussed with him at length for failure to follow through on these will likely require an amputation of the lower extremity and possibly complicate more proximal amputation healing in addition to undue burden of stress on his heart which will likely lead to his passing. He voices understanding of this, however he has heard this from his PCP and has still not followed up as of 02/04/2025. He does report that he has now established cardiology visit and was seen 02/19/2025. Will follow-up with vascular as stated above. Discussed signs and symptoms of infection today. Discussed if he notices increasing redness around the ulcerative site that moves up the leg, purulent drainage from the wound site, increasing foul odor from the wound site, or if he experiences fever greater than 101 degree accompanied by nausea, vomiting, chills of these are signs of a progressing infection and he should report to the ED for IV antibiotics and for further evaluation. He voices understanding of this today. The following work up and care recommendations were made: Dressing: EpiFix, Adaptic touch, Steri-Strips, Aquacel Ag, dry sterile dressing. Change outer dressing as needed. Wash: Do not get wet Tissue growth optimization: EpiFix Offload: Will wear surgical shoe at all times of ambulation Vascular: PVD, have ordered updated vascular studies awaiting results. Edema: None Infection: No signs of infection currently. Pain: May take [id number] Tylenol for pain Host factors: Noncompliance, CAD, PVD, uncontrolled DM type II, Temple status (Mormonism) all complicate healing. I answered all the patient's questions. To return to the wound healing center in 1 week or call sooner if the patient has any questions or concerns.
== END 2025-04-26 23:59 | disposition home or self-care (01) ==
LOC: WC 10:30
PROVIDERS: PCP Family Medicine; Referring Provider Family Medicine; Visit Provider Student in an Organized Health Care Education/Training Program
DX: I70.244 Atherosclerosis of native arteries of left leg with ulceration of heel and midfoot (principal); E11.621 Type 2 diabetes mellitus with foot ulcer; L97.422 Non-pressure chronic ulcer of left heel and midfoot with fat layer exposed; E11.42 Type 2 diabetes mellitus with diabetic polyneuropathy; Z79.4 Long term (current) use of insulin; E11.51 Type 2 diabetes mellitus with diabetic peripheral angiopathy without gangrene; I10 Essential (primary) hypertension; E78.5 Hyperlipidemia, unspecified; L90.5 Scar conditions and fibrosis of skin; W20.8XXS Other cause of strike by thrown, projected or falling object, sequela; Z79.82 Long term (current) use of aspirin; Z79.84 Long term (current) use of oral hypoglycemic drugs; Z79.899 Other long term (current) drug therapy
CPT/HCPCS: 11043; 15275; 97605; Q4186

== ENCOUNTER 2025-05-27 11:15 | Outpatient (RCR) | payer MEDICAID, SELFPAY ==
[2025-04-29 10:32] VITALS: BP 97/68; PULSE 105; RESP 16; TEMP 35.5
--- NOTE | 2025-04-29 13:24 | PN.PCM_ITS ---
History of Present Illness Date of Service: 04/29/25 Chief Complaint: Left medial heel ulceration History of Wound: Patient is a 54-year-old male who was referred to the wound care center by his PCP in [place] for a chronic left medial heel ulceration. Patient states that the ulceration has waxed and waned for 25 years following an old injury to his left foot in which steel sheet-metal was dropped onto his foot and ankle. He did undergo reconstructive surgery at that time to fixated despite initial physician recommendation of BKA. He has PMHx of uncontrolled DM type II with peripheral polyneuropathy with recent A1c of 14%, CAD with recommended cardiac bypass that was supposed to take place in [place] however never happened, pancreatic pseudocyst and alcoholic cirrhosis which was recommended to follow-up with GI in [place] however that also never happened, HTN, HLD with refusal to take statin. Patient also apparently has had long discussions with his primary care about the possibility of needing bypass to establish blood flow to heal the wound and would need a multiple specialist a [facility] in order to achieve healing. Patient also has limitations not wanting to get blood products he needs for major surgery. Patient did have labs performed in [place] prior to visit. States that he had previously was on doxycycline and had completed this. He denies any N/V/F/chills. Denies further complaints. Subjective Subjective This is a 55-year-old male who returns to wound care center for continued care of the left medial heel ulceration. Continues to follow with cardiology and a GI specialist. He is post revascularization surgery on 03/17/2025 at [facility]. He has left grafting product in place to the left heel and does note it is looking better today. He states it continuing to be less painful. He is very opt imistic and healing this ulceration so that he can go forward with heart surgery. Denies constitutional symptoms. Denies further complaints. Objective Data Objective Data Vital Signs: Vital Signs Temp Pulse Resp BP 95.9 F L 105 H 16 97/68 04/29/25 10:32 04/29/25 10:32 04/29/25 10:32 04/29/25 10:32 Physical Exam Const alert, oriented x3 and no apparent distress General Appearance: cooperative HEENT normocephalic Eyes General Eye: normal appearance of both eyes Neck General: normal visual inspection Lymph Lymphatic: no lymphadenopathy noted and no lymphedema noted Resp normal respiratory effort Cardio regular rate and regular rhythm Extremity no calf tenderness Extremity Narrative: Left lower extremity: Vascular: DP and PT pulses nonpalpable. Monophasic pulses on Doppler. CFT is delayed and sluggish to digits. Normal temperature gradient. Pedal hair growth is diminished at digits. Neurologic: Gross sensation intact. Protective sensation is diminished consistent with diabetic peripheral polyneuropathy however does still have some sensation about the heel and ulcerative site. Musculoskeletal: Muscle strength 5 of 5 age-appropriate. There is pain to palpation around the ulcerative site at the calcaneus. No pain to palpation of calf. Dermatologic: There is a cicatrix noted along the medial aspect of the ankle consistent with prior surgical reconstruction following his injury. There is a medial calcaneal wall ulceration that extends to the plantar portion of the fat pad near the calcaneal tubercles. Ulceration is full-thickness with granular wound bed. There is no malodor noted today as this is improved from prior visits. No soft tissue crepitus to palpation. No purulent drainage is expressible. Wound margins are macerated secondary to previous use of hydrogen peroxide and serosanginous drainage but are improving with ongoing healing. Ulcerative site did probe to bone along the plantar medial wall of the calcaneus, but this is granulating in well. Skin no rashes or lesions noted Neuro moves all extremities Debridement Note Debridement Note Wound debrided: Left medial calcaneus Laterality: Left Wound Grade/Stage: Flores stage II Type of Debridement: Excisional debridement Anesthesia Used: 5% Lidocaine Gel and - (8 cc 1% lidocaine with epinephrine) Depth: Down to and including healthy tissue, in the subcutaneous layer and to muscle Percentage of wound debrided: 100 Instrument Used: 5mm curette Tissue Removed: Fibrous, devitalized subcutaneous, biofilm, slough Severity: Fat Layer Exposed Amount of bleeding with debridement: Mild Bleeding Controlled with: Compression and gauze Patient tolerated procedure: Patient tolerated procedure well Post-Debridement Measurements and Additional Note: Post-Debridement Measurements/Treatment - Nurse 1 - General Ulcer Assessment Start: 04/29/25 10:32 Freq: Status: Active Protocol: [email or web address].LOWEXT Activity Type Activity Date Activity User E-sign Co-sign Detail Recorded Client Recorded Date Recorded By Document 04/29/25 10:32 ML [id number] 04/29/25 10:38 ML 04/29/25 10:32 WC - Today's Visit Information Type of service Follow-up Visit (Physician/CARPENTER ASSISTANT INSTALLER ) Arrival Mode Ambulatory Patient Identification Verified (Name & Yes ) Patient Requires Transmission-Based No Precautions Vital Signs Temperature (97.8 F-99.1 F) 95.9 F L Temperature Source Temporal Pulse Rate (60-100) 105 H Pulse Location Monitor Respiratory Rate (12-18) 16 Respiratory rate source Observation Blood Pressure (90/60-120/80) 97/68 Blood Pressure Mean (mm Hg) 77 Source Monitor Position Sitting Blood Pressure Location Left Arm History Since Last Visit- (Skip if this is Patient's initial visit) Have you changed medications since your No last visit? Any new allergies or adverse reactions No Had a fall/change in ADL's that may No increase risk of falls Have you been in the hospital since your No last visit? Has dressing in place as prescribed Yes Has compression in place as prescribed Yes Has offloadiing in place as prescribed Yes Experienced any changes in pain level or No management Pain Scale: 0-10 Numeric Is Patient Pain Free? Yes WC - Nurse 1 - General Ulcer Measurement Start: 04/29/25 10:32 Freq: Status: Active Protocol: Activity Type Activity Date Activity User E-sign Co-sign Detail Recorded Client Recorded Date Recorded By Document 04/29/25 10:32 ML [id number] 04/29/25 10:38 ML 04/29/25 10:32 Wound Center Nurse 1 1. LT MED HEEL -Current Size (cm) - Length 2 -Current Size (cm) - Width 2.5 -Current Size (cm) - Depth 0.2 -Total Square Cm 5.0 -Exudate Amt Medium -Exudate Type Serosanguineous -Granulation Amt Medium (34-66%) -Necrosis Amt Small (1-33%) -Necrotic Tissue Type Adherent Slough -Texture (Amena-wound Skin Appearance) Assessed -Moisture (Amena-wound Skin Appearance) Assessed -Color (Amena-wound Skin Appearance) Assessed -Temperature (Amena-wound Skin No Abnormality Appearance) (Pt Warm) -Tenderness on Palpation (Amena-wound Yes Skin Appearance) -Ulcer Cleansing Soap and Water -Foul Odor after Cleansing No -Anesthetic Used 5% Lidocaine Gel WC - Nurse 2 - General Ulcer CM Notes Start: 04/29/25 10:32 Freq: Status: Active Protocol: Activity Type Activity Date Activity User E-sign Co-sign Detail Recorded Client Recorded Date Recorded By Document 04/29/25 11:20 [facility] [id number] 04/29/25 11:30 [facility] 04/29/25 11:20 Wound Center Nurse 2 -Time 11:20 -Correct Patient Yes -Correct Side, Site, Position Yes -Correct Procedure Yes -Procedure Performed Yes -Type of Procedure Debridement -Clinical Debridement Muscle / Fascia -Tissue Removed Muscle,Fascia -Post Debridement (cm) - Length 2 -Post Debridement (cm) - Width 3 -Post Debridement (cm) - Depth 0.3 -Total Square (Post) (cm) 6 -Area of Debridement (cm) - Length 2 -Area of Debridement (cm) - Width 3 -Total Square (Area) (cm) 6 -Tunneling No -Undermining/Tunneling No -Circular Undermining No -Wound/Ulcer Outcome Not Healed -Ulcer Cleansing Rinsed/ Irrigated with Saline -Foul Odor after Cleansing No -Bioengineered Tissue Yes -Type of Bioengineered Tissue Epifix Mesh -Expiration Date 10/28/29 -Product Lot Number [id number] -Percent Used 100 -Lot number of Saline Used [id number] -Injectable Lidocaine w/ Epi (%) 1 -Injectable Lidocaine w/ Epi (mls) 10 -Bleeding Controlled with Pressure -Treatment Response Procedure Tolerated Well -Debridement - Muscle / Fascia, 1st No 20sq cm -Apply Skin Sub - 1st 25 sq cm - Feet 1 -Epifix Mesh Application 1-4 (per sq 11 cm) Pain Scale: 0-10 Numeric Is Patient Pain Free? Yes - Nurse 3 - General Ulcer D/C NN Start: 04/29/25 10:32 Freq: Status: Active Protocol: Activity Type Activity Date Activity User E-sign Co-sign Detail Recorded Client Recorded Date Recorded By Document 04/29/25 11:48 [id number] 04/29/25 11:49 04/29/25 11:48 Wound Care Center Nurse 3 1. LT MED HEEL -Primary Dressing Applied Aquacel Extra -Primary Dressing Covered/Secured with Dry Gauze & Roll Gauze, Secured with Tape -Aquacel Extra 1 LLE -Compression Wrap Nasim Wrap -Other 1- 4 IN Pain Scale: 0-10 Numeric Is Patient Pain Free? 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: CODE(S): L97.424 - Non-pressure chronic ulcer of left heel and midfoot with necrosis of bone (2) Diabetes mellitus with diabetic polyneuropathy: CODE(S): E11.42 - Type 2 diabetes mellitus with diabetic polyneuropathy (3) Type 2 diabetes mellitus with foot ulcer: CODE(S): E11.621 - Type 2 diabetes mellitus with foot ulcer; L97.509 - Non-pressure chronic ulcer of other part of unspecified foot with unspecified severity (4) Other specified peripheral vascular diseases: CODE(S): I73.89 - Other specified peripheral vascular diseases (5) CAD (coronary artery disease): CODE(S): I25.10 - Atherosclerotic heart disease of [place] coronary artery without angina pectoris PLAN: Plan Patient seen and evaluated Patient does have history of noncompliance with follow-up with appropriate medical staffing for necessary procedures in addition to his uncontrolled DM type II with recent A1c of 14% Does have 25-year history of waxing waning ulceration at the medial aspect of the left heel. PCP has recommended vascular intervention for likely bypass. He has undergone revascularization in [place] for balloon angioplasty of the left lower extremity on 03/17/2025. He has informed me that he has established visit with GI specialist in [place] however this will be in May 2025. Continues to follow with cardiology and has established a provider in [place]. He did undergo revascularization in [place] with a vascular surgeon at [facility] as stated above. Predebridement measurement: 2.9 cm x 1.9 cm x 0.3 cm Debridement was performed as noted in the clinical panel above. Postdebridement measurement 3.0 cm x 2.0 cm x 0.3 cm. Ulcerative site did probe to bone at the plantar medial aspect of the calcaneal tubercle, but has been granulating in well. There is continued reduction in size of ulceration at this visit with continued improvement in granulation tissue, depth, and less serosanguineous drainage versus previous visit. He has been approved for for advanced wound care product, EpiFix. Ulcerative site did undergo application of EpiFix graft #2. No signs of infection at graft site. Site was then dressed with Adaptic touch and anchored with Steri-Strips. Aquacel Ag applied over the Adaptic touch with dry sterile dressing. He is to change outer dressings as needed. He was instructed to keep the site clean and dry and to utilize cast bag when showering to maintain compliance. We have previously discussed stopping application of hydrogen peroxide. Discussed washing site with soap and water patting area dry with fresh clean towel/rag followed with Dakin's wash flushed by normal sterile saline. He may then continue betadine wet to dry dressing after packing with iodoform gauze. He was sent for radiograph 02/04/25 of the left foot [facility]. Radiograph demonstrates some air density projecting over the plantar soft tiss ues near the left heel region/plantar calcaneal spur. This could be potentially due to gas producing infection or recent penetrating injury. Close correlation with clinical exam findings recommended. Radiologist also states that if concern is for osteomyelitis MRI evaluation is recommended. I have independently reviewed the imaging and do concur with the radiographic read. He underwent MRI on 02/26/2025 of the left foot. Interpretation as large medial sided heel ulceration without soft tissue abscess. Minimal 1 cm area of calcaneal edema at the medial plantar fascia attachment. Cannot determine if reactive osteitis versus very early change of osteomyelitis. I have reviewed and discussed these images and findings with the patient. Due to possibility of osteomyelitis he was prescribed a course of oral doxycycline 100 mg twice daily x 6 weeks (stop date 04/15/2025). Rx gabapentin 100 mg 3 times daily x 30 days. 1 refill was given, however he reports this does not help him. OARS was checked. Rx oxycodone acetaminophen 5/325mg. 42 tablets were dispensed on 03/04/25. He is to take 1 tablet every 8 hours for his ulcerative pain. LEAS was ordered. LEAS demonstrate right DP waveform triphasic and PT waveform biphasic, right KESHIA 1.12, right PT indices 0.80, DP indices 0.80, right digital indices 0.52; left PT artery waveforms are monophasic and the left DP waveforms are monophasic, left KESHIA 1.17, l left PT indices 0.50, left DP indices 0.44, unable to obtain digital pressure. 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 Venous studies were negative for DVT. No evidence of reflux or valvular incompetence. He did see Dr. Batista on 02/19/25 to discuss vascular studies. They are recommending CTA abdominal pelvis with runoff to evaluate for atherosclerotic burden and determine interventional options pending recent kidney function lab. Vascular also awaiting further cardiology analysis and are refraining from initiation of Pletal at this time until status can be given. He is can to continue ASA daily. I did discuss with patient at length the need to follow with a vascular surgeon to reestablish blood flow to the lower extremity to aid in allowing for healing of this ulcerative site. I have also discussed the necessary need to follow-up with cardiology for intervention of his coronary artery disease which may likely require stent placing. I have also discussed the need to undergo diet modification and to take the necessary medications to aid in glycemic control to reduce his A1c from 14 to under 7. Discussed this is all necessary to aid in healing and for salvage of his lower extremity. I have discussed with him at length for failure to follow through on these will likely require an amputation of the lower extremity and possibly complicate more proximal amputation healing in addition to undue burden of stress on his heart which will likely lead to his passing. He voices understanding of this, however he has heard this from his PCP and has still not followed up as of 02/04/2025. He does report that he has now established cardiology visit and was seen 02/19/2025. Will follow-up with vascular as stated above. Discussed signs and symptoms of infection today. Discussed if he notices increasing redness around the ulcerative site that moves up the leg, purulent drainage from the wound site, increasing foul odor from the wound site, or if he experiences fever greater than 101 degree accompanied by nausea, vomiting, chills of these are signs of a progressing infection and he should report to the ED for IV antibiotics and for further evaluation. He voices understanding of this today. The following work up and care recommendations were made: Dressing: EpiFix, Adaptic touch, Steri-Strips, Aquacel Ag, dry sterile dressing. Change outer dressing as needed. Wash: Do not get wet Tissue growth optimization: EpiFix Offload: Will wear surgical shoe at all times of ambulation Vascular: PVD, have ordered updated vascular studies awaiting results. Edema: None Infection: No signs of infection currently. Pain: May take [id number] Tylenol for pain Host factors: Noncompliance, CAD, PVD, uncontrolled DM type II, Sikh status (Oriental orthodox) all complicate healing. I answered all the patient's questions. To return to the wound healing center in 1 week or call sooner if the patient has any questions or concerns.
[2025-05-06 11:40] VITALS: BP 114/82; PULSE 98; RESP 16; TEMP 36.4
--- NOTE | 2025-05-06 11:47 | PN.PCM_ITS ---
History of Present Illness Date of Service: 05/06/25 Chief Complaint: Left medial heel ulceration History of Wound: Patient is a 54-year-old male who was referred to the wound care center by his PCP in [place] for a chronic left medial heel ulceration. Patient states that the ulceration has waxed and waned for 25 years following an old injury to his left foot in which steel sheet-metal was dropped onto his foot and ankle. He did undergo reconstructive surgery at that time to fixated despite initial physician recommendation of BKA. 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 Patient also apparently has had long discussions with his primary care about the possibility of needing bypass to establish blood flow to heal the wound and would need a multiple specialist a [facility] in order to achieve healing. Patient also has limitations not wanting to get blood products he needs for major surgery. Patient did have labs performed in [place] prior to visit. States that he had previously was on doxycycline and had completed this. He denies any N/V/F/chills. Denies further complaints. Subjective Subjective This is a 55-year-old male who returns to wound care center for continued care of the left medial heel ulceration. Continues to follow with cardiology and a GI specialist. He is post revascularization surgery on 03/17/[address] [facility]. He has left grafting product in place to the left heel and does notes continued improvement. He states it continuing to be less painful. He is very optimistic and healing this ulceration so that he can go forward with heart surgery. Denies constitutional symptoms. Denies further complaints. Objective Data Objective Data Vital Signs: Vital Signs Temp Pulse Resp BP 95.9 F L 105 H 16 97/68 04/29/25 10:32 04/29/25 10:32 04/29/25 10:32 04/29/25 10:32 Physical Exam Const alert, oriented x3 and no apparent distress General Appearance: cooperative HEENT normocephalic Eyes General Eye: normal appearance of both eyes Neck General: normal visual inspection Lymph Lymphatic: no lymphadenopathy noted and no lymphedema noted Resp normal respiratory effort Cardio regular rate and regular rhythm Extremity no calf tenderness Extremity Narrative: Left lower extremity: Vascular: DP and PT pulses nonpalpable. Monophasic pulses on Doppler. CFT is delayed and sluggish to digits. Normal temperature gradient. Pedal hair growth is diminished at digits. Neurologic: Gross sensation intact. Protective sensation is diminished consistent with diabetic peripheral polyneuropathy however does still have some sensation about the heel and ulcerative site. Musculoskeletal: Muscle strength 5 of 5 age-appropriate. There is pain to palpation around the ulcerative site at the calcaneus. No pain to palpation of calf. Dermatologic: There is a cicatrix noted along the medial aspect of the ankle consistent with prior surgical reconstruction following his injury. There is a medial calcaneal wall ulceration that extends to the plantar portion of the fat pad near the calcaneal tubercles. Ulceration is full-thickness with granular wound bed. There is no malodor noted today as this is improved from prior visits. No soft tissue crepitus to palpation. No purulent drainage is expressible. Wound margins are macerated secondary to previous use of hydrogen peroxide and serosanginous drainage but are improving with ongoing healing. Ulcerative site did probe to bone along the plantar medial wall of the calcaneus, but this is granulating in well. Skin no rashes or lesions noted Neuro moves all extremities Debridement Note Debridement Note Wound debrided: Left medial calcaneus Laterality: Left Wound Grade/Stage: Flores stage II Type of Debridement: Excisional debridement Anesthesia Used: 5% Lidocaine Gel and - (10 cc 1% lidocaine with epinephrine) Depth: Down to and including healthy tissue and in the subcutaneous layer Percentage of wound debrided: 100 Instrument Used: 5mm curette Tissue Removed: Fibrous, devitalized subcutaneous, biofilm, slough Severity: Fat Layer Exposed Amount of bleeding with debridement: Mild Bleeding Controlled with: Compression and gauze Patient tolerated procedure: Patient tolerated procedure well Post-Debridement Measurements and Additional Note: Post-Debridement Measurements/Treatment - Nurse 1 - General Ulcer Assessment Start: 04/29/25 10:32 Freq: Status: Active Protocol: FELECIAEXT Activity Type Activity Date Activity User E-sign Co-sign Detail Recorded Client Recorded Date Recorded By Document 04/29/25 10:32 ML [id number] 04/29/25 10:38 ML 04/29/25 10:32 WC - Today's Visit Information Type of service Follow-up Visit (Physician/[employer]ER ) Arrival Mode Ambulatory Patient Identification Verified (Name & Yes ) Patient Requires Transmission-Based No Precautions Vital Signs Temperature (97.8 F-99.1 F) 95.9 F L Temperature Source Temporal Pulse Rate (60-100) 105 H Pulse Location Monitor Respiratory Rate (12-18) 16 Respiratory rate source Observation Blood Pressure (90/60-120/80) 97/68 Blood Pressure Mean (mm Hg) 77 Source Monitor Position Sitting Blood Pressure Location Left Arm History Since Last Visit- (Skip if this is Patient's initial visit) Have you changed medications since your No last visit? Any new allergies or adverse reactions No Had a fall/change in ADL's that may No increase risk of falls Have you been in the hospital since your No last visit? Has dressing in place as prescribed Yes Has compression in place as prescribed Yes Has offloadiing in place as prescribed Yes Experienced any changes in pain level or No management Pain Scale: 0-10 Numeric Is Patient Pain Free? Yes WC - Nurse 1 - General Ulcer Measurement Start: 04/29/25 10:32 Freq: Status: Active Protocol: Activity Type Activity Date Activity User E-sign Co-sign Detail Recorded Client Recorded Date Recorded By Document 04/29/25 10:32 ML [id number] 04/29/25 10:38 ML 04/29/25 10:32 Wound Center Nurse 1 1. LT MED HEEL -Current Size (cm) - Length 2 -Current Size (cm) - Width 2.5 -Current Size (cm) - Depth 0.2 -Total Square Cm 5.0 -Exudate Amt Medium -Exudate Type Serosanguineous -Granulation Amt Medium (34-66%) -Necrosis Amt Small (1-33%) -Necrotic Tissue Type Adherent Slough -Texture (Amena-wound Skin Appearance) Assessed -Moisture (Amena-wound Skin Appearance) Assessed -Color (Amena-wound Skin Appearance) Assessed -Temperature (Amena-wound Skin No Abnormality Appearance) (Pt Warm) -Tenderness on Palpation (Amena-wound Yes Skin Appearance) -Ulcer Cleansing Soap and Water -Foul Odor after Cleansing No -Anesthetic Used 5% Lidocaine Gel WC - Nurse 2 - General Ulcer CM Notes Start: 04/29/25 10:32 Freq: Status: Active Protocol: Activity Type Activity Date Activity User E-sign Co-sign Detail Recorded Client Recorded Date Recorded By Document 04/29/25 11:20 [facility] [id number] 04/29/25 11:30 [facility] 04/29/25 11:20 Wound Center Nurse 2 -Time 11:20 -Correct Patient Yes -Correct Side, Site, Position Yes -Correct Procedure Yes -Procedure Performed Yes -Type of Procedure Debridement -Clinical Debridement Muscle / Fascia -Tissue Removed Muscle,Fascia -Post Debridement (cm) - Length 2 -Post Debridement (cm) - Width 3 -Post Debridement (cm) - Depth 0.3 -Total Square (Post) (cm) 6 -Area of Debridement (cm) - Length 2 -Area of Debridement (cm) - Width 3 -Total Square (Area) (cm) 6 -Tunneling No -Undermining/Tunneling No -Circular Undermining No -Wound/Ulcer Outcome Not Healed -Ulcer Cleansing Rinsed/ Irrigated with Saline -Foul Odor after Cleansing No -Bioengineered Tissue Yes -Type of Bioengineered Tissue Epifix Mesh -Expiration Date 10/28/29 -Product Lot Number [id number] -Percent Used 100 -Lot number of Saline Used [id number] -Injectable Lidocaine w/ Epi (%) 1 -Injectable Lidocaine w/ Epi (mls) 10 -Bleeding Controlled with Pressure -Treatment Response Procedure Tolerated Well -Debridement - Muscle / Fascia, 1st No 20sq cm -Apply Skin Sub - 1st 25 sq cm - Feet 1 -Epifix Mesh Application 1-4 (per sq 11 cm) Pain Scale: 0-10 Numeric Is Patient Pain Free? Yes - Nurse 3 - General Ulcer D/C NN Start: 04/29/25 10:32 Freq: Status: Active Protocol: Activity Type Activity Date Activity User E-sign Co-sign Detail Recorded Client Recorded Date Recorded By Document 04/29/25 11:48 [id number] 04/29/25 11:49 04/29/25 11:48 Wound Care Center Nurse 3 1. LT MED HEEL -Primary Dressing Applied Aquacel Extra -Primary Dressing Covered/Secured with Dry Gauze & Roll Gauze, Secured with Tape -Aquacel Extra 1 LLE -Compression Wrap Nasim Wrap -Other 1- 4 IN Pain Scale: 0-10 Numeric Is Patient Pain Free? 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: CODE(S): L97.424 - Non-pressure chronic ulcer of left heel and midfoot with necrosis of bone (2) Diabetes mellitus with diabetic polyneuropathy: CODE(S): E11.42 - Type 2 diabetes mellitus with diabetic polyneuropathy (3) Type 2 diabetes mellitus with foot ulcer: CODE(S): E11.621 - Type 2 diabetes mellitus with foot ulcer; L97.509 - Non-pressure chronic ulcer of other part of unspecified foot with unspecified severity (4) Other specified peripheral vascular diseases: CODE(S): I73.89 - Other specified peripheral vascular diseases (5) CAD (coronary artery disease): CODE(S): I25.10 - Atherosclerotic heart disease of [place] coronary artery without angina pectoris PLAN: Plan Patient seen and evaluated Patient does have history of noncompliance with follow-up with appropriate medical staffing for necessary procedures in addition to his uncontrolled DM type II with recent A1c of 14% Does have 25-year history of waxing waning ulceration at the medial aspect of the left heel. PCP has recommended vascular intervention for likely bypass. He has undergone revascularization in [place] for balloon angioplasty of the left lower extremity on 03/17/2025. He has informed me that he has established visit with GI specialist in [place] however this will be in May 2025. Continues to follow with cardiology and has established a provider in [place]. He did undergo revascularization in [place] with a vascular surgeon at [facility] as stated above. Predebridement measurement: 2.6 cm x 1.9 cm x 0.2 cm Debridement was performed as noted in the clinical panel above. Postdebridement measurement 2.7 cm x 2.0 cm x 0.2 cm. Ulcerative site did probe to bone at the plantar medial aspect of the calcaneal tubercle, but has been granulating in well and no longer has significant depth. There is continued reduction in size of ulceration at this visit with continued improvement in granulation tissue, depth, and less serosanguineous drainage versus previous visit. He has been approved for for advanced wound care product, EpiFix. Ulcerative site did undergo application of EpiFix graft #3. No signs of infection at graft site. Site was then dressed with Adaptic touch and anchored with Steri-Strips. Aquacel Ag applied over the Adaptic touch with dry sterile dressing. He is to change outer dressings as needed. He was instructed to keep the site clean and dry and to utilize cast bag when showering to maintain compliance. We have previously discussed stopping application of hydrogen peroxide. Discussed washing site with soap and water patting area dry with fresh clean towel/rag followed with Dakin's wash flushed by normal sterile saline. He may then continue betadine wet to dry dressing after packing with iodoform gauze. He was sent for radiograph 02/04/25 of the left foot [facility]. Radiograph demonstrates some air density projecting over the plantar soft tissues near the left heel region/plantar calcaneal spur. This could be potentially due to gas producing infection or recent penetrating injury. Close correlation with clinical exam findings recommended. Radiologist also states that if concern is for osteomyelitis MRI evaluation is recommended. I have independently reviewed the imaging and do concur with the radiographic read. He underwent MRI on 02/26/2025 of the left foot. Interpretation as large medial sided heel ulceration without soft tissue abscess. Minimal 1 cm area of calcaneal edema at the medial plantar fascia attachment. Cannot determine if reactive osteitis versus very early change of osteomyelitis. I have reviewed and discussed these images and findings with the patient. Due to possibility of osteomyelitis he was prescribed a course of oral doxycycline 100 mg twice daily x 6 weeks (stop date 04/15/2025). Rx gabapentin 100 mg 3 times daily x 30 days. 1 refill was given, however he reports this does not help him. OARS was checked. Rx oxycodone acetaminophen 5/325mg. 42 tablets were dispensed on 03/04/25. He is to take 1 tablet every 8 hours for his ulcerative pain. LEAS was ordered. LEAS demonstrate right DP waveform triphasic and PT waveform biphasic, right KESHIA 1.12, right PT indices 0.80, DP indices 0.80, right digital indices 0.52; left PT artery waveforms are monophasic and the left DP waveforms are monophasic, left KESHIA 1.17, l left PT indices 0.50, left DP indices 0.44, unable to obtain digital pressure. 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 Venous studies were negative for DVT. No evidence of reflux or valvular incompetence. He did see Dr. Batista on 02/19/25 to discuss vascular studies. They are recommending CTA abdominal pelvis with runoff to evaluate for atherosclerotic burden and determine interventional options pending recent kidney function lab. Vascular also awaiting further cardiology analysis and are refraining from initiation of Pletal at this time until status can be given. He is can to continue ASA daily. I did discuss with patient at length the need to follow with a vascular surgeon to reestablish blood flow to the lower extremity to aid in allowing for healing of this ulcerative site. I have also discussed the necessary need to follow-up with cardiology for intervention of his coronary artery disease which may likely require stent placing. I have also discussed the need to undergo diet modification and to take the necessary medications to aid in glycemic control to reduce his A1c from 14 to under 7. Discussed this is all necessary to aid in healing and for salvage of his lower extremity. I have discussed with him at length for failure to follow through on these will likely require an amputation of the lower extremity and possibly complicate more proximal amputation healing in addition to undue burden of stress on his heart which will likely lead to his passing. He voices understanding of this, however he has heard this from his PCP and has still not followed up as of 02/04/2025. He does report that he has now established cardiology visit and was seen 02/19/2025. Will follow-up with vascular as stated above. Discussed signs and symptoms of infection today. Discussed if he notices increasing redness around the ulcerative site that moves up the leg, purulent drainage from the wound site, increasing foul odor from the wound site, or if he experiences fever greater than 101 degree accompanied by nausea, vomiting, chills of these are signs of a progressing infection and he should report to the ED for IV antibiotics and for further evaluation. He voices understanding of this today. The following work up and care recommendations were made: Dressing: EpiFix, Adaptic touch, Steri-Strips, Aquacel Ag, dry sterile dressing. Change outer dressing as needed. Wash: Do not get wet Tissue growth optimization: EpiFix Offload: Will wear surgical shoe at all times of ambulation Vascular: PVD, have ordered updated vascular studies awaiting results. Edema: None Infection: No signs of infection currently. Pain: May take [id number] Tylenol for pain Host factors: Noncompliance, CAD, PVD, uncontrolled DM type II, Hinduism status (Jehovah's witness) all complicate healing. I answered all the patient's questions. To return to the wound healing center in 1 week or call sooner if the patient has any questions or concerns.
[2025-05-13 11:02] VITALS: BP 139/88; PULSE 91; RESP 16; TEMP 36.6
--- NOTE | 2025-05-13 12:44 | PN.PCM_ITS ---
History of Present Illness Date of Service: 05/13/25 Chief Complaint: Left medial heel ulceration History of Wound: Patient is a 54-year-old male who was referred to the wound care center by his PCP in [place] for a chronic left medial heel ulceration. Patient states that the ulceration has waxed and waned for 25 years following an old injury to his left foot in which steel sheet-metal was dropped onto his foot and ankle. He did undergo reconstructive surgery at that time to fixated despite initial physician recommendation of BKA. 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 Patient also apparently has had long discussions with his primary care about the possibility of needing bypass to establish blood flow to heal the wound and would need a multiple specialist [facility] to achieve healing. Patient also has limitations not wanting to get blood products he needs for major surgery. Patient did have labs performed in [place] prior to visit. States that he had previously was on doxycycline and had completed this. He denies any N/V/F/chills. Denies further complaints. Subjective Subjective This is a 55-year-old male who returns to wound care center for continued care of the left medial heel ulceration. Continues to follow with cardiology and a GI specialist. He is post revascularization surgery on 03/17/2025 at [facility]. He has left grafting product in place to the left heel and does notes continued improvement with decreasing wound size. He states it continuing to be less p ainful. He remains very optimistic and healing this ulceration so that he can go forward with heart surgery. Denies constitutional symptoms. Denies further complaints. Objective Data Objective Data Vital Signs: Vital Signs Temp Pulse Resp BP O2 Del Method 97.8 F 91 16 139/88 H Room Air 05/13/25 11:02 05/13/25 11:02 05/13/25 11:02 05/13/25 11:02 05/13/25 11:02 Oxygen Delivery Method Room Air Physical Exam Const alert, oriented x3 and no apparent distress General Appearance: cooperative HEENT normocephalic Eyes General Eye: normal appearance of both eyes Neck General: normal visual inspection Lymph Lymphatic: no lymphadenopathy noted and no lymphedema noted Resp normal respiratory effort Cardio regular rate and regular rhythm Extremity no calf tenderness Extremity Narrative: Left lower extremity: Vascular: DP and PT pulses nonpalpable. Monophasic pulses on Doppler. CFT is delayed and sluggish to digits. Normal temperature gradient. Pedal hair growth is diminished at digits. Neurologic: Gross sensation intact. Protective sensation is diminished consistent with diabetic peripheral polyneuropathy however does still have some sensation about the heel and ulcerative site. Musculoskeletal: Muscle strength 5 of 5 age-appropriate. There is pain to palpation around the ulcerative site at the calcaneus. No pain to palpation of calf. Dermatologic: There is a cicatrix noted along the medial aspect of the ankle consistent with prior surgical reconstruction following his injury. There is a medial calcaneal wall ulceration that extends to the plantar portion of the fat pad near the calcaneal tubercles. Ulceration is full-thickness with granular wound bed. There is no malodor noted today as this is improved from prior vis its. No soft tissue crepitus to palpation. No purulent drainage is expressible. Wound margins are macerated secondary to previous use of hydrogen peroxide and serosanginous drainage but are improving with ongoing healing. Ulcerative site did probe to bone along the plantar medial wall of the calcaneus, but this is granulating in well. Skin no rashes or lesions noted Neuro moves all extremities Debridement Note Debridement Note Wound debrided: Left medial calcaneus Laterality: Left Wound Grade/Stage: Flores stage II Type of Debridement: Excisional debridement Anesthesia Used: - (10 cc 1% lidocaine with epinephrine) Depth: Down to and including healthy tissue and in the subcutaneous layer Percentage of wound debrided: 100 Instrument Used: 5mm curette and #15 blade Tissue Removed: Fibrous, devitalized subcutaneous, biofilm, slough Severity: Fat Layer Exposed Amount of bleeding with debridement: Mild Bleeding Controlled with: Compression and gauze Patient tolerated procedure: Patient tolerated procedure well Post-Debridement Measurements and Additional Note: Post-Debridement Measurements/Treatment EFRA - Nurse 1 - General Ulcer Assessment Start: 04/29/25 10:32 Freq: Status: Active Protocol: FELECIAEXT Activity Type Activity Date Activity User E-sign Co-sign Detail Recorded Client Recorded Date Recorded By Document 04/29/25 10:32 ML [id number] 04/29/25 10:38 ML Document 05/06/25 11:40 CP [id number] 05/06/25 11:47 CP Document 05/13/25 11:02 KW [id number] 05/13/25 11:11 KW 04/29/25 05/06/25 05/13/25 10:32 11:40 11:02 - Today's Visit Information Type of service Follow-up Visit Follow-up Visit Follow-up Visit (Physician/FULFILLMENT REPRESENTATIVE (Physician/FULFILLMENT REPRESENTATIVE (Physician/FULFILLMENT REPRESENTATIVE ) ) ) Arrival Mode Ambulatory Ambulatory Ambulatory Transfer Assistance None Patient Identification Verified (Name & Yes Yes Yes ) Patient Requires Transmission-Based No Precautions Vital Signs Temperature (97.8 F-99.1 F) 95.9 F L 97.5 F L 97.8 F Temperature Source Temporal Temporal Temporal Pulse Rate (60-100) 105 H 98 91 Pulse Location Monitor Monitor Monitor Respiratory Rate (12-18) 16 16 16 Respiratory rate source Observation Observation Observation Oxygen Delivery Method Room Air Blood Pressure (90/60-120/80) 97/68 114/82 H 139/88 H Blood Pressure Mean (mm Hg) 77 92 105 Source Monitor Monitor Monitor Position Sitting Sitting Semi-Fowlers Blood Pressure Location Left Arm Right Arm Left Arm History Since Last Visit- (Skip if this is Patient's initial visit) Have you changed medications since your No No No last visit? Any new allergies or adverse reactions No No No Had a fall/change in ADL's that may No No No increase risk of falls Signs or symptoms of abuse and/or No No neglect since last visit Have you been in the hospital since your No No No last visit? Has dressing in place as prescribed Yes Yes Yes Has compression in place as prescribed Yes N/A N/A Has offloadiing in place as prescribed Yes Yes Yes Experienced any changes in pain level or No No No management Left Footwear Surgical Shoe Regular Shoe with pressure relief insole Right Footwear Surgical Shoe with pressure relief insole Pain Scale: 0-10 Numeric Is Patient Pain Free? Yes Yes Yes - Nurse 1 - General Ulcer Measurement Start: 04/29/25 10:32 Freq: Status: Active Protocol: Activity Type Activity Date Activity User E-sign Co-sign Detail Recorded Client Recorded Date Recorded By Document 04/29/25 10:32 ML [id number] 04/29/25 10:38 ML Document 05/06/25 11:40 CP [id number] 05/06/25 11:47 CP Document 05/13/25 11:02 KW [id number] 05/13/25 11:11 KW 04/29/25 05/06/25 05/13/25 10:32 11:40 11:02 Wound Center Nurse 1 1. LT MED HEEL -Current Size (cm) - Length 2 1.8 0.1 -Current Size (cm) - Width 2.5 3 0.1 -Current Size (cm) - Depth 0.2 0.2 0 -Total Square Cm 5.0 5.4 0.01 -Date of Last Picture (Recall this 05/13/25 field) -Photo Taken No -Epithelialization None Present -Exudate Amt Medium Small Medium -Exudate Type Serosanguineous Serosanguineous Serosanguineous -Wound Margin Thickened -Granulation Amt Medium (34-66%) Medium (34-66%) Small (1-33%) -Granulation Quality Red Red -Slough/Fibrin Yes -Necrosis Amt Small (1-33%) Small (1-33%) Large (67-100%) -Necrotic Tissue Type Adherent Slough Adherent Slough Adherent Slough -Structure Exposed N/A -Texture (Amena-wound Skin Appearance) Assessed No Abnormality Assessed -Moisture (Amena-wound Skin Appearance) Assessed No Abnormality, Assessed Dry/Scaly -Color (Amena-wound Skin Appearance) Assessed No Abnormality Assessed -Temperature (Amena-wound Skin No Abnormality No Abnormality No Abnormality Appearance) (Pt Warm) (Pt Warm) (Pt Warm) -Tenderness on Palpation (Amena-wound Yes No No Skin Appearance) -Ulcer Cleansing Soap and Water Soap and Water Soap and Water -Foul Odor after Cleansing No No -Anesthetic Used 5% Lidocaine 5% Lidocaine Gel Gel WC - Nurse 2 - General Ulcer CM Notes Start: 04/29/25 10:32 Freq: Status: Active Protocol: Activity Type Activity Date Activity User E-sign Co-sign Detail Recorded Client Recorded Date Recorded By Document 04/29/25 11:20 BMF [id number] 04/29/25 11:30 BM Document 05/06/25 12:06 BMF [id number] 05/06/25 12:16 BMF Document 05/13/25 11:13 BM [id number] 05/13/25 11:23 [facility] 04/29/25 05/06/25 05/13/25 11:20 12:06 11:13 Wound Center Nurse 2 1. LT MED HEEL -Time 11:20 12:06 11:15 -Correct Patient Yes Yes Yes -Correct Side, Site, Position Yes Yes Yes -Correct Procedure Yes Yes Yes -Procedure Performed Yes Yes Yes -Type of Procedure Debridement Debridement Debridement -Clinical Debridement Muscle / Fascia Subcutaneous Subcutaneous -Tissue Removed Muscle,Fascia Subcutaneous Subcutaneous -Post Debridement (cm) - Length 2 2 1.8 -Post Debridement (cm) - Width 3 2.7 2.5 -Post Debridement (cm) - Depth 0.3 0.2 0.1 -Total Square (Post) (cm) 6 5.4 4.50 -Area of Debridement (cm) - Length 2 2 1.8 -Area of Debridement (cm) - Width 3 2.7 2.5 -Total Square (Area) (cm) 6 5.4 4.50 -Tunneling No No No -Undermining/Tunneling No No No -Circular Undermining No No No -Wound/Ulcer Outcome Not Healed Not Healed Not Healed -Ulcer Cleansing Rinsed/ Rinsed/ Rinsed/ Irrigated with Irrigated with Irrigated with Saline Saline Saline -Foul Odor after Cleansing No No No -Bioengineered Tissue Yes Yes Yes -Type of Bioengineered Tissue Epifix Mesh -Expiration Date 10/28/29 10/28/29 10/28/29 -Product Lot Number [id number] -Percent Used 100 100 100 -Lot number of Saline Used [id number] -Injectable Lidocaine w/ Epi (%) 1 1 -Injectable Lidocaine w/ Epi (mls) 10 10 -Bleeding Controlled with Pressure Pressure Pressure -Treatment Response Procedure Procedure Procedure Tolerated Well Tolerated Well Tolerated Well -Debridement - Subq, 1st 20sq cm No No -Debridement - Muscle / Fascia, 1st No 20sq cm -Apply Skin Sub - 1st 25 sq cm - Feet 1 1 1 -Epifix Mesh Application 1-4 (per sq 11 11 11 cm) Pain Scale: 0-10 Numeric Is Patient Pain Free? Yes Yes Yes WC - Nurse 3 - General Ulcer D/C NN Start: 04/29/25 10:32 Freq: Status: Active Protocol: Activity Type Activity Date Activity User E-sign Co-sign Detail Recorded Client Recorded Date Recorded By Document 04/29/25 11:48 KW [id number] 04/29/25 11:49 KW Document 05/06/25 12:23 DL [id number] 05/06/25 12:24 DL Document 05/13/25 11:34 KW [id number] 05/13/25 11:35 KW 04/29/25 05/06/25 05/13/25 11:48 12:23 11:34 Wound Care Center Nurse 3 1. LT MED HEEL -Foul Odor after Cleansing No -Primary Dressing Applied Aquacel Extra Aquacel Extra Aquacel Extra -Other Dressing Epifix -Primary Dressing Covered/Secured with Dry Gauze & Dry Gauze & Dry Gauze & Roll Gauze, Roll Gauze, Roll Gauze, Secured with Secured with Secured with Tape Tape Tape -Other Covering NASIM -Aquacel Extra 1 1 1 LLE -Compression Wrap Nasim Wrap Nasim Wrap -Other 1- 4 IN Treatment Response Procedure Tolerated Well Pain Scale: 0-10 Numeric Is Patient Pain Free? 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: CODE(S): L97.424 - Non-pressure chronic ulcer of left heel and midfoot with necrosis of bone (2) Diabetes mellitus with diabetic polyneuropathy: CODE(S): E11.42 - Type 2 diabetes mellitus with diabetic polyneuropathy (3) Type 2 diabetes mellitus with foot ulcer: CODE(S): E11.621 - Type 2 diabetes mellitus with foot ulcer; L97.509 - Non-pressure chronic ulcer of other part of unspecified foot with unspecified severity (4) Other specified peripheral vascular diseases: CODE(S): I73.89 - Other specified peripheral vascular diseases (5) CAD (coronary artery disease): CODE(S): I25.10 - Atherosclerotic heart disease of [place] coronary artery without angina pectoris PLAN: Plan Patient seen and evaluated Patient does have history of noncompliance with follow-up with appropriate medical staffing for necessary procedures in addition to his uncontrolled DM type II with recent A1c of 14% Does have 25-year history of waxing waning ulceration at the medial aspect of the left heel. PCP has recommended vascular intervention for likely bypass. He has undergone revascularization in [place] for balloon angioplasty of the left lower extremity on 03/17/2025. He has informed me that he has established visit with GI specialist in [place] however this will be in May 2025. Continues to follow with cardiology and has established a provider in [place]. He did undergo revascularization in [place] with a vascular surgeon at [facility] as stated above. Predebridement measurement: 2.4 cm x 1.7 cm x 0.1 cm Debridement was performed as noted in the clinical panel above. Postdebridement measurement 2.5 cm x 1.8 cm x 0.1 cm. Ulcerative site did probe to bone at the plantar medial aspect of the calcaneal tubercle, but has been granulating in well and no longer has significant depth. There is continued reduction in size of ulceration at this visit with continued improvement in granulation tissue, depth, and less serosanguineous drainage versus previous visit. He has been approved for for advanced wound care product, EpiFix. Ulcerative site did undergo application of EpiFix graft #4. No signs of infection at graft site. Site was then dressed with Adaptic touch and anchored with Steri-Strips. Aquacel Ag applied over the Adaptic touch with dry sterile dressing. He is to change outer dressings as needed. He was instructed to keep the site clean and dry and to utilize cast bag when showering to maintain compliance. We have previously discussed stopping application of hydrogen peroxide. Discussed washing site with soap and water patting area dry with fresh clean towel/rag followed with Dakin's wash flushed by normal sterile saline. He may then continue betadine wet to dry dressing after packing with iodoform gauze. He was sent for radiograph 02/04/25 of the left foot [facility]. Radiograph demonstrates some air density projecting over the plantar soft t issues near the left heel region/plantar calcaneal spur. This could be potentially due to gas producing infection or recent penetrating injury. Close correlation with clinical exam findings recommended. Radiologist also states that if concern is for osteomyelitis MRI evaluation is recommended. I have independently reviewed the imaging and do concur with the radiographic read. He underwent MRI on 02/26/2025 of the left foot. Interpretation as large medial sided heel ulceration without soft tissue abscess. Minimal 1 cm area of calcaneal edema at the medial plantar fascia attachment. Cannot determine if reactive osteitis versus very early change of osteomyelitis. I have reviewed and discussed these images and findings with the patient. Due to possibility of osteomyelitis he was prescribed a course of oral doxycycline 100 mg twice daily x 6 weeks (stop date 04/15/2025). Rx gabapentin 100 mg 3 times daily x 30 days. 1 refill was given, however he reports this does not help him. OARS was checked. Rx oxycodone acetaminophen 5/325mg. 42 tablets were dispensed on 03/04/25. He is to take 1 tablet every 8 hours for his ulcerative pain. LEAS was ordered. LEAS demonstrate right DP waveform triphasic and PT waveform biphasic, right KESHIA 1.12, right PT indices 0.80, DP indices 0.80, right digital indices 0.52; left PT artery waveforms are monophasic and the left DP waveforms are monophasic, left KESHIA 1.17, l left PT indices 0.50, left DP indices 0.44, unable to obtain digital pressure. 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 Venous studies were negative for DVT. No evidence of reflux or valvular incompetence. He did see Dr. Batista on 02/19/25 to discuss vascular studies. They are recommending CTA abdominal pelvis with runoff to evaluate for atherosclerotic burden and determine interventional options pending recent kidney function lab. Vascular also awaiting further cardiology analysis and are refraining from initiation of Pletal at this time until status can be given. He is can to continue ASA daily. I did discuss with patient at length the need to follow with a vascular surgeon to reestablish blood flow to the lower extremity to aid in allowing for healing of this ulcerative site. I have also discussed the necessary need to follow-up with cardiology for intervention of his coronary artery disease which may likely require stent placing. I have also discussed the need to undergo diet modification and to take the necessary medications to aid in glycemic control to reduce his A1c from 14 to under 7. Discussed this is all necessary to aid in healing and for salvage of his lower extremity. I have discussed with him at length for failure to follow through on these will likely require an amputation of the lower extremity and possibly complicate more proximal amputation healing in addition to undue burden of stress on his heart which will likely lead to his passing. He voices understanding of this, however he has heard this from his PCP and has still not followed up as of 02/04/2025. He does report that he has now established cardiology visit and was seen 02/19/2025. Will follow-up with vascular as stated above. Discussed signs and symptoms of infection today. Discussed if he notices increasing redness around the ulcerative site that moves up the leg, purulent drainage from the wound site, increasing foul odor from the wound site, or if he experiences fever greater than 101 degree accompanied by nausea, vomiting, chills of these are signs of a progressing infection and he should report to the ED for IV antibiotics and for further evaluation. He voices understanding of this today. The following work up and care recommendations were made: Dressing: EpiFix, Adaptic touch, Steri-Strips, Aquacel Ag, dry sterile dressing. Change outer dressing as needed. Wash: Do not get wet Tissue growth optimization: EpiFix Offload: Will wear surgical shoe at all times of ambulation Vascular: PVD, have ordered updated vascular studies awaiting results. Edema: None Infection: No signs of infection currently. Pain: May take [id number] Tylenol for pain Host factors: Noncompliance, CAD, PVD, uncontrolled DM type II, Islam status (Evangelical) all complicate healing. I answered all the patient's questions. To return to the wound healing center in 1 week or call sooner if the patient has any questions or concerns.
--- NOTE | 2025-05-17 09:41 | WC ---
PHOTO 05/13/25 LEFT FILIBERTO [facility]
[2025-05-20 10:54] VITALS: BP 140/69; PULSE 108; RESP 18; TEMP 36.1
--- NOTE | 2025-05-20 13:25 | PCM.WC.PN ---
History of Present Illness Date of Service: 05/20/25 Chief Complaint: Left medial heel ulceration History of Wound: Patient is a 54-year-old male who was referred to the wound care center by his PCP in [place] for a chronic left medial heel ulceration. Patient states that the ulceration has waxed and waned for 25 years following an old injury to his left foot in which steel sheet-metal was dropped onto his foot and ankle. He did undergo reconstructive surgery at that time to fixated despite initial physician recommendation of BKA. 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 Patient also apparently has had long discussions with his primary care about the possibility of needing bypass to establish blood flow to heal the wound and would need a multiple specialist approach in order to achieve healing. Patient also has limitations not wanting to get blood products he needs for major surgery. Patient did have labs performed in [place] prior to visit. States that he had previously was on doxycycline and had completed this. He denies any N/V/F/chills. Denies further complaints. Subjective Subjective This is a 55-year-old male who returns to wound care center for continued care of the left medial heel ulceration. Continues to follow with cardiology and a GI specialist. He is post revascularization surgery on 03/17/2025 at [facility]. He has left grafting product in place to the left heel and does notes continued improvement with continued decreasing wound size. He states it continuing to be less painful. He remains very optimistic and healing this ulceration so that he can go forward with heart surgery. States facility is noting it is healing well and they did move up his cardiology visit for potential surgery to July 05. Denies constitutional symptoms. Denies further complaints. Objective Data Objective Data Vital Signs: Vital Signs Temp Pulse Resp BP O2 Del Method 97 F L 108 H 18 140/69 H Room Air 05/20/25 10:54 05/20/25 10:54 05/20/25 10:54 05/20/25 10:54 05/13/25 11:02 Oxygen Delivery Method Room Air Physical Exam Const alert, oriented x3 and no apparent distress General Appearance: cooperative HEENT normocephalic Eyes General Eye: normal appearance of both eyes Neck General: normal visual inspection Lymph Lymphatic: no lymphadenopathy noted and no lymphedema noted Resp normal respiratory effort Cardio regular rate and regular rhythm Extremity no calf tenderness Extremity Narrative: Left lower extremity: Vascular: DP and PT pulses nonpalpable. Monophasic pulses on Doppler. CFT is delayed and sluggish to digits. Normal temperature gradient. Pedal hair growth is diminished at digits. Neurologic: Gross sensation intact. Protective sensation is diminished consistent with diabetic peripheral polyneuropathy however does still have some sensation about the heel and ulcerative site. Musculoskeletal: Muscle strength 5 of 5 age-appropriate. There is pain to palpation around the ulcerative site at the calcaneus. No pain to palpation of calf. Dermatologic: There is a cicatrix noted along the medial aspect of the ankle consistent with prior surgical reconstruction following his injury. There is a medial calcaneal wall ulceration that extends to the plantar portion of the fat pad near the calcaneal tubercles. Ulceration is full-thickness with granular wound bed. There is no malodor noted today as this is improved from prior visits. No soft tissue crepitus to palpation. No purulent drainage is expressible. Wound margins are macerated secondary to previous use of hydrogen peroxide and serosanginous drainage but are improving with ongoing healing. Ulcerative site did probe to bone along the plantar medial wall of the calcaneus, but this is granulating in well. Skin no rashes or lesions noted Neuro moves all extremities Debridement Note Debridement Note Wound debrided: Left medial calcaneus Laterality: Left Wound Grade/Stage: Flores stage II Type of Debridement: Excisional debridement Anesthesia Used: 5% Lidocaine Gel Depth: Down to and including healthy tissue and in the subcutaneous layer Percentage of wound debrided: 100 Instrument Used: 7mm curette Tissue Removed: Fibrous, devitalized subcutaneous, biofilm, slough Severity: Fat Layer Exposed Amount of bleeding with debridement: Mild Bleeding Controlled with: Compression and gauze Patient tolerated procedure: Patient tolerated procedure well Post-Debridement Measurements and Additional Note: Post-Debridement Measurements/Treatment EFRA - Nurse 1 - General Ulcer Assessment Start: 04/29/25 10:32 Freq: Status: Active Protocol: [facility] Activity Type Activity Date Activity User E-sign Co-sign Detail Recorded Client Recorded Date Recorded By Document 04/29/25 10:32 ML [id number] 04/29/25 10:38 ML Document 05/06/25 11:40 CP [id number] 05/06/25 11:47 CP Document 05/13/25 11:02 KW [id number] 05/13/25 11:11 KW Document 05/20/25 10:54 DL [id number] 05/20/25 10:57 DL 04/29/25 05/06/25 05/13/25 10:32 11:40 11:02 WC - Today's Visit Information Type of service Follow-up Visit Follow-up Visit Follow-up Visit (Physician/BRASSWIND INSTRUMENT REPAIRER (Physician/BRASSWIND INSTRUMENT REPAIRER (Physician/BRASSWIND INSTRUMENT REPAIRER ) ) ) Arrival Mode Ambulatory Ambulatory Ambulatory Transfer Assistance None Patient Identification Verified (Name & Yes Yes Yes ) Patient Requires Transmission-Based No Precautions Vital Signs Temperature (97.8 F-99.1 F) 95.9 F L 97.5 F L 97.8 F Temperature Source Temporal Temporal Temporal Pulse Rate (60-100) 105 H 98 91 Pulse Location Monitor Monitor Monitor Respiratory Rate (12-18) 16 16 16 Respiratory rate source Observation Observation Observation Oxygen Delivery Method Room Air Blood Pressure (90/60-120/80) 97/68 114/82 H 139/88 H Blood Pressure Mean (mm Hg) 77 92 105 Source Monitor Monitor Monitor Position Sitting Sitting Semi-Fowlers Blood Pressure Location Left Arm Right Arm Left Arm History Since Last Visit- (Skip if this is Patient's initial visit) Have you changed medications since your No No No last visit? Any new allergies or adverse reactions No No No Had a fall/change in ADL's that may No No No increase risk of falls Signs or symptoms of abuse and/or No No neglect since last visit Have you been in the hospital since your No No No last visit? Has dressing in place as prescribed Yes Yes Yes Has compression in place as prescribed Yes N/A N/A Has offloadiing in place as prescribed Yes Yes Yes Experienced any changes in pain level or No No No management Left Footwear Surgical Shoe Regular Shoe with pressure relief insole Right Footwear Surgical Shoe with pressure relief insole Pain Scale: 0-10 Numeric Is Patient Pain Free? Yes Yes Yes 05/20/25 10:54 WC - Today's Visit Information Type of service Follow-up Visit (Physician/BRASSWIND INSTRUMENT REPAIRER ) Arrival Mode Ambulatory Transfer Assistance None Patient Identification Verified (Name & Yes ) Patient Requires Transmission-Based No Precautions Vital Signs Temperature (97.8 F-99.1 F) 97 F L Temperature Source Temporal Pulse Rate (60-100) 108 H Pulse Location Monitor Respiratory Rate (12-18) 18 Respiratory rate source Observation Oxygen Delivery Method Blood Pressure (90/60-120/80) 140/69 H Blood Pressure Mean (mm Hg) 92 Source Monitor Position Blood Pressure Location History Since Last Visit- (Skip if this is Patient's initial visit) Have you changed medications since your No last visit? Any new allergies or adverse reactions No Had a fall/change in ADL's that may No increase risk of falls Signs or symptoms of abuse and/or No neglect since last visit Have you been in the hospital since your No last visit? Has dressing in place as prescribed Yes Has compression in place as prescribed Yes Has offloadiing in place as prescribed Yes Experienced any changes in pain level or No management Left Footwear Right Footwear Pain Scale: 0-10 Numeric Is Patient Pain Free? Yes WC - Nurse 1 - General Ulcer Measurement Start: 04/29/25 10:32 Freq: Status: Active Protocol: Activity Type Activity Date Activity User E-sign Co-sign Detail Recorded Client Recorded Date Recorded By Document 04/29/25 10:32 ML [id number] 04/29/25 10:38 ML Document 05/06/25 11:40 CP [id number] 05/06/25 11:47 CP Document 05/13/25 11:02 KW [id number] 05/13/25 11:11 KW Document 05/20/25 10:54 DL [id number] 05/20/25 10:57 DL 04/29/25 05/06/25 05/13/25 10:32 11:40 11:02 Wound Center Nurse 1 1. LT MED HEEL -Current Size (cm) - Length 2 1.8 0.1 -Current Size (cm) - Width 2.5 3 0.1 -Current Size (cm) - Depth 0.2 0.2 0 -Total Square Cm 5.0 5.4 0.01 -Date of Last Picture (Recall this 05/13/25 field) -Photo Taken No -Epithelialization None Present -Exudate Amt Medium Small Medium -Exudate Type Serosanguineous Serosanguineous Serosanguineous -Wound Margin Thickened -Granulation Amt Medium (34-66%) Medium (34-66%) Small (1-33%) -Granulation Quality Red Red -Slough/Fibrin Yes -Necrosis Amt Small (1-33%) Small (1-33%) Large (67-100%) -Necrotic Tissue Type Adherent Slough Adherent Slough Adherent Slough -Structure Exposed N/A -Texture (Amena-wound Skin Appearance) Assessed No Abnormality Assessed -Moisture (Amena-wound Skin Appearance) Assessed No Abnormality, Assessed Dry/Scaly -Color (Amena-wound Skin Appearance) Assessed No Abnormality Assessed -Temperature (Amena-wound Skin No Abnormality No Abnormality No Abnormality Appearance) (Pt Warm) (Pt Warm) (Pt Warm) -Tenderness on Palpation (Amena-wound Yes No No Skin Appearance) -Ulcer Cleansing Soap and Water Soap and Water Soap and Water -Foul Odor after Cleansing No No -Anesthetic Used 5% Lidocaine 5% Lidocaine Gel Gel 05/20/25 10:54 Wound Center Nurse 1 1. LT MED HEEL -Current Size (cm) - Length 1.5 -Current Size (cm) - Width 2 -Current Size (cm) - Depth 0.1 -Total Square Cm 3.0 -Date of Last Picture (Recall this field) -Photo Taken -Epithelialization -Exudate Amt Medium -Exudate Type Serosanguineous -Wound Margin Distinct, Outline Attached -Granulation Amt Medium (34-66%) -Granulation Quality Red -Slough/Fibrin -Necrosis Amt Medium (34-66%) -Necrotic Tissue Type Adherent Slough -Structure Exposed N/A -Texture (Amena-wound Skin Appearance) Scarring -Moisture (Amena-wound Skin Appearance) Dry/Scaly -Color (Amena-wound Skin Appearance) No Abnormality -Temperature (Amena-wound Skin No Abnormality Appearance) (Pt Warm) -Tenderness on Palpation (Amena-wound No Skin Appearance) -Ulcer Cleansing Soap and Water -Foul Odor after Cleansing No -Anesthetic Used 5% Lidocaine Gel WC - Nurse 2 - General Ulcer CM Notes Start: 04/29/25 10:32 Freq: Status: Active Protocol: Activity Type Activity Date Activity User E-sign Co-sign Detail Recorded Client Recorded Date Recorded By Document 04/29/25 11:20 [facility] [id number] 04/29/25 11:30 [facility] Document 05/06/25 12:06 [facility] [id number] 05/06/25 12:16 [facility] Document 05/13/25 11:13 [facility] [id number] 05/13/25 11:23 [facility] Document 05/20/25 11:30 [facility] [id number] 05/20/25 11:41 [facility] 04/29/25 05/06/25 05/13/25 11:20 12:06 11:13 Wound Center Nurse 2 1. LT MED HEEL -Time 11:20 12:06 11:15 -Correct Patient Yes Yes Yes -Correct Side, Site, Position Yes Yes Yes -Correct Procedure Yes Yes Yes -Procedure Performed Yes Yes Yes -Type of Procedure Debridement Debridement Debridement -Clinical Debridement Muscle / Fascia Subcutaneous Subcutaneous -Tissue Removed Muscle,Fascia Subcutaneous Subcutaneous -Post Debridement (cm) - Length 2 2 1.8 -Post Debridement (cm) - Width 3 2.7 2.5 -Post Debridement (cm) - Depth 0.3 0.2 0.1 -Total Square (Post) (cm) 6 5.4 4.50 -Area of Debridement (cm) - Length 2 2 1.8 -Area of Debridement (cm) - Width 3 2.7 2.5 -Total Square (Area) (cm) 6 5.4 4.50 -Tunneling No No No -Undermining/Tunneling No No No -Circular Undermining No No No -Wound/Ulcer Outcome Not Healed Not Healed Not Healed -Ulcer Cleansing Rinsed/ Rinsed/ Rinsed/ Irrigated with Irrigated with Irrigated with Saline Saline Saline -Foul Odor after Cleansing No No No -Bioengineered Tissue Yes Yes Yes -Type of Bioengineered Tissue Epifix Mesh -Expiration Date 10/28/29 10/28/29 10/28/29 -Product Lot Number [id number] -Percent Used 100 100 100 -Lot number of Saline Used [id number] -Injectable Lidocaine (%) -Lidocaine (ml) -Injectable Lidocaine w/ Epi (%) 1 1 -Injectable Lidocaine w/ Epi (mls) 10 10 -Bleeding Controlled with Pressure Pressure Pressure -Treatment Response Procedure Procedure Procedure Tolerated Well Tolerated Well Tolerated Well -Debridement - Subq, 1st 20sq cm No No -Debridement - Muscle / Fascia, 1st No 20sq cm -Apply Skin Sub - 1st 25 sq cm - Feet 1 1 1 -Epifix Application 1-4 (per sq cm) -Epifix Mesh Application 1-4 (per sq 11 11 11 cm) Pain Scale: 0-10 Numeric Is Patient Pain Free? Yes Yes Yes 05/20/25 11:30 Wound Center Nurse 2 1. LT MED HEEL -Time 11:30 -Correct Patient Yes -Correct Side, Site, Position Yes -Correct Procedure Yes -Procedure Performed Yes -Type of Procedure Debridement -Clinical Debridement Subcutaneous -Tissue Removed Subcutaneous -Post Debridement (cm) - Length 1.5 -Post Debridement (cm) - Width 1.9 -Post Debridement (cm) - Depth 0.1 -Total Square (Post) (cm) 2.85 -Area of Debridement (cm) - Length 1.5 -Area of Debridement (cm) - Width 1.9 -Total Square (Area) (cm) 2.85 -Tunneling No -Undermining/Tunneling No -Circular Undermining No -Wound/Ulcer Outcome Not Healed -Ulcer Cleansing Rinsed/ Irrigated with Saline -Foul Odor after Cleansing No -Bioengineered Tissue Yes -Type of Bioengineered Tissue Epifix -Expiration Date 11/28/29 -Product Lot Number [id number] -Percent Used 100 -Lot number of Saline Used [id number] -Injectable Lidocaine (%) 1 -Lidocaine (ml) 10 -Injectable Lidocaine w/ Epi (%) -Injectable Lidocaine w/ Epi (mls) -Bleeding Controlled with Pressure -Treatment Response Procedure Tolerated Well -Debridement - Subq, 1st 20sq cm No -Debridement - Muscle / Fascia, 1st 20sq cm -Apply Skin Sub - 1st 25 sq cm - Feet 1 -Epifix Application 1-4 (per sq cm) 4 -Epifix Mesh Application 1-4 (per sq cm) Pain Scale: 0-10 Numeric Is Patient Pain Free? Yes - Nurse 3 - General Ulcer D/C NN Start: 04/29/25 10:32 Freq: Status: Active Protocol: Activity Type Activity Date Activity User E-sign Co-sign Detail Recorded Client Recorded Date Recorded By Document 04/29/25 11:48 KW [id number] 04/29/25 11:49 KW Document 05/06/25 12:23 DL [id number] 05/06/25 12:24 DL Document 05/13/25 11:34 KW [id number] 05/13/25 11:35 KW Document 05/20/25 11:46 DL [id number] 05/20/25 11:47 DL 04/29/25 05/06/25 05/13/25 11:48 12:23 11:34 Wound Care Center Nurse 3 1. LT MED HEEL -Foul Odor after Cleansing No -Primary Dressing Applied Aquacel Extra Aquacel Extra Aquacel Extra -Other Dressing Epifix -Primary Dressing Covered/Secured with Dry Gauze & Dry Gauze & Dry Gauze & Roll Gauze, Roll Gauze, Roll Gauze, Secured with Secured with Secured with Tape Tape Tape -Other Covering NASIM -Aquacel Extra 1 1 1 LLE -Compression Wrap Nasim Wrap Nasim Wrap -Other 1- 4 IN Treatment Response Procedure Tolerated Well Pain Scale: 0-10 Numeric Is Patient Pain Free? Yes Yes Yes WC - Visit Discharge Discharge Condition Stable Stable Stable Ambulatory Status Ambulatory Ambulatory Ambulatory Transportation Private Auto Private Auto Private Auto Medication Reconcilliation completed & No No provided to patient/care provider Clinical Summary of Care Provided Yes Yes 05/20/25 11:46 Wound Care Center Nurse 3 1. LT MED HEEL -Foul Odor after Cleansing No -Primary Dressing Applied Aquacel Extra -Other Dressing ePIFIX -Primary Dressing Covered/Secured with Dry Gauze & Roll Gauze, Secured with Tape -Other Covering nasim -Aquacel Extra 1 LLE -Compression Wrap -Other Treatment Response Procedure Tolerated Well Pain Scale: 0-10 Numeric Is Patient Pain Free? 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: CODE(S): L97.424 - Non-pressure chronic ulcer of left heel and midfoot with necrosis of bone (2) Diabetes mellitus with diabetic polyneuropathy: CODE(S): E11.42 - Type 2 diabetes mellitus with diabetic polyneuropathy (3) Type 2 diabetes mellitus with foot ulcer: CODE(S): E11.621 - Type 2 diabetes mellitus with foot ulcer; L97.509 - Non-pressure chronic ulcer of other part of unspecified foot with unspecified severity (4) Other specified peripheral vascular diseases: CODE(S): I73.89 - Other specified peripheral vascular diseases (5) CAD (coronary artery disease): CODE(S): I25.10 - Atherosclerotic heart disease of [place] coronary artery without angina pectoris PLAN: Plan Patient seen and evaluated Patient does have history of noncompliance with follow-up with appropriate medical staffing for necessary procedures in addition to his uncontrolled DM type II with recent A1c of 14% Does have 25-year history of waxing waning ulceration at the medial aspect of the left heel. PCP has recommended vascular intervention for likely bypass. He has undergone revascularization in [place] for balloon angioplasty of the left lower extremity on 03/17/2025. He has informed me that he has established visit with GI specialist in [place] however this will be in May 2025. Continues to follow with cardiology and has established a provider in [place]. He did undergo revascularization in [place] with a vascular surgeon at [facility] as stated above. Predebridement measurement: 1.4 cm x 1.8 cm x 0.1 cm Debridement was performed as noted in the clinical panel above. Postdebridement measurement 1.5 cm x 1.9 cm x 0.1 cm. Ulcerative site did probe to bone at the plantar medial aspect of the calcaneal tubercle, but has been granulating in well and no longer has significant depth. There is continued reduction in size of ulceration at this visit with continued improvement in granulation tissue, depth, and less serosanguineous drainage versus previous visit. He has been approved for for advanced wound care product, EpiFix. Ulcerative site did undergo application of EpiFix graft #5. No signs of infection at graft site. Site was then dressed with Adaptic touch and anchored with Steri-Strips. Aquacel Ag applied over the Adaptic touch with dry sterile dressing. He is to change outer dressings as needed. He was instructed to keep the site clean and dry and to utilize cast bag when showering to maintain compliance. We have previously discussed stopping application of hydrogen peroxide. Discussed washing site with soap and water patting area dry with fresh clean towel/rag followed with Dakin's wash flushed by normal sterile saline. He may then continue betadine wet to dry dressing after packing with iodoform gauze. He was sent for radiograph 02/04/25 of the left foot [facility]. Radiograph demonstrates some air density projecting over the plantar soft tissues near the left heel region/plantar calcaneal spur. This could be potentially due to gas producing infection or recent penetrating injury. Close correlation with clinical exam findings recommended. Radiologist also states that if concern is for osteomyelitis MRI evaluation is recommended. I have independently reviewed the imaging and do concur with the radiographic read. He underwent MRI on 02/26/2025 of the left foot. Interpretation as large medial sided heel ulceration without soft tissue abscess. Minimal 1 cm area of calcaneal edema at the medial plantar fascia attachment. Cannot determine if reactive osteitis versus very early change of osteomyelitis. I have reviewed and discussed these images and findings with the patient. Due to possibility of osteomyelitis he was prescribed a course of oral doxycycline 100 mg twice daily x 6 weeks (stop date 04/15/2025). Rx gabapentin 100 mg 3 times daily x 30 days. 1 refill was given, however he reports this does not help him. OARS was checked. Rx oxycodone acetaminophen 5/325mg. 42 tablets were dispensed on 03/04/25. He is to take 1 tablet every 8 hours for his ulcerative pain. LEAS was ordered. LEAS demonstrate right DP waveform triphasic and PT waveform biphasic, right KESHIA 1.12, right PT indices 0.80, DP indices 0.80, right digital indices 0.52; left PT artery waveforms are monophasic and the left DP waveforms are monophasic, left KESHIA 1.17, l left PT indices 0.50, left DP indices 0.44, unable to obtain digital pressure. 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 Venous studies were negative for DVT. No evidence of reflux or valvular incompetence. He did see Dr. Batista on 02/19/25 to discuss vascular studies. They are recommending CTA abdominal pelvis with runoff to evaluate for atherosclerotic burden and determine interventional options pending recent kidney function lab. Vascular also awaiting further cardiology analysis and are refraining from initiation of Pletal at this time until status can be given. He is can to continue ASA daily. I did discuss with patient at length the need to follow with a vascular surgeon to reestablish blood flow to the lower extremity to aid in allowing for healing of this ulcerative site. I have also discussed the necessary need to follow-up with cardiology for intervention of his coronary artery disease which may likely require stent placing. I have also discussed the need to undergo diet modification and to take the necessary medications to aid in glycemic control to reduce his A1c from 14 to under 7. Discussed this is all necessary to aid in healing and for salvage of his lower extremity. I have discussed with him at length for failure to follow through on these will likely require an amputation of the lower extremity and possibly complicate more proximal amputation healing in addition to undue burden of stress on his heart which will likely lead to his passing. He voices understanding of this, however he has heard this from his PCP and has still not followed up as of 02/04/2025. He does report that he has now established cardiology visit and was seen 02/19/2025. Will follow-up with vascular as stated above. Discussed signs and symptoms of infection today. Discussed if he notices increasing redness around the ulcerative site that moves up the leg, purulent drainage from the wound site, increasing foul odor from the wound site, or if he experiences fever greater than 101 degree accompanied by nausea, vomiting, chills of these are signs of a progressing infection and he should report to the ED for IV antibiotics and for further evaluation. He voices understanding of this today. The following work up and care recommendations were made: Dressing: EpiFix, Adaptic touch, Steri-Strips, Aquacel Ag, dry sterile dressing. Change outer dressing as needed. Wash: Do not get wet Tissue growth optimization: EpiFix Offload: Will wear surgical shoe at all times of ambulation Vascular: PVD, have ordered updated vascular studies awaiting results. Edema: None Infection: No signs of infection currently. Pain: May take [id number] Tylenol for pain Host factors: Noncompliance, CAD, PVD, uncontrolled DM type II, Zoroastrian status (Scientologist) all complicate healing. I answered all the patient's questions. To return to the wound healing center in 1 week or call sooner if the patient has any questions or concerns.
[2025-05-27 11:32] VITALS: BP 145/86; PULSE 107; RESP 18; TEMP 36.7
--- NOTE | 2025-05-27 12:56 | PN.PCM_ITS ---
History of Present Illness Date of Service: 05/27/25 Chief Complaint: Left medial heel ulceration History of Wound: Patient is a 54-year-old male who was referred to the wound care center by his PCP in [place] for a chronic left medial heel ulceration. Patient states that the ulceration has waxed and waned for 25 years following an old injury to his left foot in which steel sheet-metal was dropped onto his foot and ankle. He did undergo reconstructive surgery at that time to fixated despite initial physician recommendation of BKA. 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 Patient also apparently has had long discussions with his primary care about the possibility of needing bypass to establish blood flow to heal the wound and would need a multiple specialist [facility] in order to achieve healing. Patient also has limitations not wanting to get blood products he needs for major surgery. Patient did have labs performed in [place] prior to visit. States that he had previously was on doxycycline and had completed this. He denies any N/V/F/chills. Denies further complaints. Subjective Subjective This is a 55-year-old male who returns to wound care center for continued care of the left medial heel ulceration. Continues to follow with cardiology and a GI specialist. He is post revascularization surgery on 03/17/2025 at [facility]. He has left grafting product in place to the left heel and does notes continued improvement with continued decreasing wound size. He is very pleased with this. He states it continuing to be less painful. He remains very optimistic and healing this ulceration so that he can go forward with heart surgery. States facility is noting it is healing well and they did move up his cardiology visit for potential surgery to July 05. Denies constitutional symptoms. Denies further complaints. Objective Data Objective Data Vital Signs: Vital Signs Temp Pulse Resp BP O2 Del Method 98.1 F 107 H 18 145/86 H Room Air 05/27/25 11:32 05/27/25 11:32 05/27/25 11:32 05/27/25 11:32 05/27/25 11:32 Oxygen Delivery Method Room Air Physical Exam Const alert, oriented x3 and no apparent distress General Appearance: cooperative HEENT normocephalic Eyes General Eye: normal appearance of both eyes Neck General: normal visual inspection Lymph Lymphatic: no lymphadenopathy noted and no lymphedema noted Resp normal respiratory effort Cardio regular rate and regular rhythm Extremity no calf tenderness Extremity Narrative: Left lower extremity: Vascular: DP and PT pulses nonpalpable. Monophasic pulses on Doppler. CFT is delayed and sluggish to digits. Normal temperature gradient. Pedal hair growth is diminished at digits. Neurologic: Gross sensation intact. Protective sensation is diminished consistent with diabetic peripheral polyneuropathy however does still have some sensation about the heel and ulcerative site. Musculoskeletal: Muscle strength 5 of 5 age-appropriate. There is pain to palpation around the ulcerative site at the calcaneus. No pain to palpation of calf. Dermatologic: There is a cicatrix noted along the medial aspect of the ankle consistent with prior surgical reconstruction following his injury. There is a medial calcaneal wall ulceration that extends to the plantar portion of the fat pad near the calcaneal tubercles. Ulceration is full-thickness with granular wound bed. There is no malodor noted today as this is improved from prior visits. No soft tissue crepitus to palpation. No purulent drainage is expressible. Wound margins are macerated secondary to previous use of hydrogen peroxide and serosanginous drainage but are improving with ongoing healing. Ulcerative site did probe to bone along the plantar medial wall of the calcaneus, but this is granulating in well. Skin no rashes or lesions noted Neuro moves all extremities Debridement Note Debridement Note Wound debrided: Left medial heel Laterality: Left Wound Grade/Stage: Flores stage II Type of Debridement: Excisional debridement Anesthesia Used: 5% Lidocaine Gel Depth: Down to and including healthy tissue and in the subcutaneous layer Percentage of wound debrided: 100 Instrument Used: 7mm curette Tissue Removed: Fibrous, devitalized subcutaneous, biofilm, slough Severity: Fat Layer Exposed Amount of bleeding with debridement: Mild Bleeding Controlled with: Compression and gauze Patient tolerated procedure: Patient tolerated procedure well Post-Debridement Measurements and Additional Note: Post-Debridement Measurements/Treatment EFRA - Nurse 1 - General Ulcer Assessment Start: 04/29/25 10:32 Freq: Status: Active Protocol: [facility] Activity Type Activity Date Activity User E-sign Co-sign Detail Recorded Client Recorded Date Recorded By Document 04/29/25 10:32 ML [id number] 04/29/25 10:38 ML Document 05/06/25 11:40 CP [id number] 05/06/25 11:47 CP Document 05/13/25 11:02 KW [id number] 05/13/25 11:11 KW Document 05/20/25 10:54 DL [id number] 05/20/25 10:57 DL Document 05/27/25 11:32 KW [id number] 05/27/25 11:43 KW 04/29/25 05/06/25 05/13/25 10:32 11:40 11:02 WC - Today's Visit Information Type of service Follow-up Visit Follow-up Visit Follow-up Visit (Physician/TECHNICAL OPERATOR (Physician/TECHNICAL OPERATOR (Physician/TECHNICAL OPERATOR ) ) ) Arrival Mode Ambulatory Ambulatory Ambulatory Transfer Assistance None Patient Identification Verified (Name & Yes Yes Yes ) Patient Requires Transmission-Based No Precautions Vital Signs Temperature (97.8 F-99.1 F) 95.9 F L 97.5 F L 97.8 F Temperature Source Temporal Temporal Temporal Pulse Rate (60-100) 105 H 98 91 Pulse Location Monitor Monitor Monitor Respiratory Rate (12-18) 16 16 16 Respiratory rate source Observation Observation Observation Oxygen Delivery Method Room Air Blood Pressure (90/60-120/80) 97/68 114/82 H 139/88 H Blood Pressure Mean (mm Hg) 77 92 105 Source Monitor Monitor Monitor Position Sitting Sitting Semi-Fowlers Blood Pressure Location Left Arm Right Arm Left Arm History Since Last Visit- (Skip if this is Patient's initial visit) Have you changed medications since your No No No last visit? Any new allergies or adverse reactions No No No Had a fall/change in ADL's that may No No No increase risk of falls Signs or symptoms of abuse and/or No No neglect since last visit Have you been in the hospital since your No No No last visit? Has dressing in place as prescribed Yes Yes Yes Has compression in place as prescribed Yes N/A N/A Has offloadiing in place as prescribed Yes Yes Yes Experienced any changes in pain level or No No No management Left Footwear Surgical Shoe Regular Shoe with pressure relief insole Right Footwear Surgical Shoe with pressure relief insole Pain Scale: 0-10 Numeric Is Patient Pain Free? Yes Yes Yes 05/20/25 05/27/25 10:54 11:32 WC - Today's Visit Information Type of service Follow-up Visit Follow-up Visit (Physician/TECHNICAL OPERATOR (Physician/TECHNICAL OPERATOR ) ) Arrival Mode Ambulatory Ambulatory Transfer Assistance None Patient Identification Verified (Name & Yes Yes ) Patient Requires Transmission-Based No Precautions Vital Signs Temperature (97.8 F-99.1 F) 97 F L 98.1 F Temperature Source Temporal Temporal Pulse Rate (60-100) 108 H 107 H Pulse Location Monitor Monitor Respiratory Rate (12-18) 18 18 Respiratory rate source Observation Observation Oxygen Delivery Method Room Air Blood Pressure (90/60-120/80) 140/69 H 145/86 H Blood Pressure Mean (mm Hg) 92 105 Source Monitor Monitor Position Sitting Blood Pressure Location Left Arm History Since Last Visit- (Skip if this is Patient's initial visit) Have you changed medications since your No No last visit? Any new allergies or adverse reactions No No Had a fall/change in ADL's that may No No increase risk of falls Signs or symptoms of abuse and/or No No neglect since last visit Have you been in the hospital since your No No last visit? Has dressing in place as prescribed Yes Yes Has compression in place as prescribed Yes Yes Has offloadiing in place as prescribed Yes Yes Experienced any changes in pain level or No No management Left Footwear Surgical Shoe with pressure relief insole Right Footwear Regular Shoe Pain Scale: 0-10 Numeric Is Patient Pain Free? Yes Yes - Nurse 1 - General Ulcer Measurement Start: 04/29/25 10:32 Freq: Status: Active Protocol: Activity Type Activity Date Activity User E-sign Co-sign Detail Recorded Client Recorded Date Recorded By Document 04/29/25 10:32 ML [id number] 04/29/25 10:38 ML Document 05/06/25 11:40 CP [id number] 05/06/25 11:47 CP Document 05/13/25 11:02 KW [id number] 05/13/25 11:11 KW Document 05/20/25 10:54 DL [id number] 05/20/25 10:57 DL Document 05/27/25 11:32 KW [id number] 05/27/25 11:43 KW 04/29/25 05/06/25 05/13/25 10:32 11:40 11:02 Wound Center Nurse 1 1. LT MED HEEL -Current Size (cm) - Length 2 1.8 0.1 -Current Size (cm) - Width 2.5 3 0.1 -Current Size (cm) - Depth 0.2 0.2 0 -Total Square Cm 5.0 5.4 0.01 -Date of Last Picture (Recall this 05/13/25 field) -Photo Taken No -Epithelialization None Present -Exudate Amt Medium Small Medium -Exudate Type Serosanguineous Serosanguineous Serosanguineous -Wound Margin Thickened -Granulation Amt Medium (34-66%) Medium (34-66%) Small (1-33%) -Granulation Quality Red Red -Slough/Fibrin Yes -Necrosis Amt Small (1-33%) Small (1-33%) Large (67-100%) -Necrotic Tissue Type Adherent Slough Adherent Slough Adherent Slough -Structure Exposed N/A -Texture (Amena-wound Skin Appearance) Assessed No Abnormality Assessed -Moisture (Amena-wound Skin Appearance) Assessed No Abnormality, Assessed Dry/Scaly -Color (Amena-wound Skin Appearance) Assessed No Abnormality Assessed -Temperature (Amena-wound Skin No Abnormality No Abnormality No Abnormality Appearance) (Pt Warm) (Pt Warm) (Pt Warm) -Tenderness on Palpation (Amena-wound Yes No No Skin Appearance) -Ulcer Cleansing Soap and Water Soap and Water Soap and Water -Foul Odor after Cleansing No No -Anesthetic Used 5% Lidocaine 5% Lidocaine Gel Gel 05/20/25 05/27/25 10:54 11:32 Wound Center Nurse 1 1. LT MED HEEL -Current Size (cm) - Length 1.5 -Current Size (cm) - Width 2 -Current Size (cm) - Depth 0.1 -Total Square Cm 3.0 -Date of Last Picture (Recall this field) -Photo Taken -Epithelialization -Exudate Amt Medium Medium -Exudate Type Serosanguineous Serosanguineous -Wound Margin Distinct, Distinct, Outline Outline Attached Attached -Granulation Amt Medium (34-66%) Medium (34-66%) -Granulation Quality [place] -Slough/Fibrin -Necrosis Amt Medium (34-66%) Medium (34-66%) -Necrotic Tissue Type Adherent Slough Adherent Slough -Structure Exposed N/A -Texture (Amena-wound Skin Appearance) Scarring Assessed -Moisture (Amena-wound Skin Appearance) Dry/Scaly Assessed -Color (Amena-wound Skin Appearance) No Abnormality Assessed -Temperature (Amena-wound Skin No Abnormality No Abnormality Appearance) (Pt Warm) (Pt Warm) -Tenderness on Palpation (Amena-wound No No Skin Appearance) -Ulcer Cleansing Soap and Water Soap and Water -Foul Odor after Cleansing No No -Anesthetic Used 5% Lidocaine 5% Lidocaine Gel Gel WC - Nurse 2 - General Ulcer CM Notes Start: 04/29/25 10:32 Freq: Status: Active Protocol: Activity Type Activity Date Activity User E-sign Co-sign Detail Recorded Client Recorded Date Recorded By Document 04/29/25 11:20 BM [id number] 04/29/25 11:30 [facility] Document 05/06/25 12:06 BMF [id number] 05/06/25 12:16 BMF Document 05/13/25 11:13 BMF [id number] 05/13/25 11:23 BMF Document 05/20/25 11:30 BMF [id number] 05/20/25 11:41 BMF Document 05/27/25 11:54 BMF [id number] 05/27/25 12:11 BMF 04/29/25 05/06/25 05/13/25 11:20 12:06 11:13 Wound Center Nurse 2 1. LT MED HEEL -Time 11:20 12:06 11:15 -Correct Patient Yes Yes Yes -Correct Side, Site, Position Yes Yes Yes -Correct Procedure Yes Yes Yes -Procedure Performed Yes Yes Yes -Type of Procedure Debridement Debridement Debridement -Clinical Debridement Muscle / Fascia Subcutaneous Subcutaneous -Tissue Removed Muscle,Fascia Subcutaneous Subcutaneous -Post Debridement (cm) - Length 2 2 1.8 -Post Debridement (cm) - Width 3 2.7 2.5 -Post Debridement (cm) - Depth 0.3 0.2 0.1 -Total Square (Post) (cm) 6 5.4 4.50 -Area of Debridement (cm) - Length 2 2 1.8 -Area of Debridement (cm) - Width 3 2.7 2.5 -Total Square (Area) (cm) 6 5.4 4.50 -Tunneling No No No -Undermining/Tunneling No No No -Circular Undermining No No No -Wound/Ulcer Outcome Not Healed Not Healed Not Healed -Ulcer Cleansing Rinsed/ Rinsed/ Rinsed/ Irrigated with Irrigated with Irrigated with Saline Saline Saline -Foul Odor after Cleansing No No No -Bioengineered Tissue Yes Yes Yes -Type of Bioengineered Tissue Epifix Mesh -Expiration Date 10/28/29 10/28/29 10/28/29 -Product Lot Number [id number] -Percent Used 100 100 100 -Lot number of Saline Used [id number] -Injectable Lidocaine (%) -Lidocaine (ml) -Injectable Lidocaine w/ Epi (%) 1 1 -Injectable Lidocaine w/ Epi (mls) 10 10 -Bleeding Controlled with Pressure Pressure Pressure -Treatment Response Procedure Procedure Procedure Tolerated Well Tolerated Well Tolerated Well -Debridement - Subq, 1st 20sq cm No No -Debridement - Muscle / Fascia, 1st No 20sq cm -Apply Skin Sub - 1st 25 sq cm - Feet 1 1 1 -Epifix Application 1-4 (per sq cm) -Epifix Mesh Application 1-4 (per sq 11 11 11 cm) Pain Scale: 0-10 Numeric Is Patient Pain Free? Yes Yes Yes 05/20/25 05/27/25 11:30 11:54 Wound Center Nurse 2 1. LT MED HEEL -Time 11:30 11:54 -Correct Patient Yes Yes -Correct Side, Site, Position Yes Yes -Correct Procedure Yes Yes -Procedure Performed Yes Yes -Type of Procedure Debridement Debridement -Clinical Debridement Subcutaneous Subcutaneous -Tissue Removed Subcutaneous Subcutaneous -Post Debridement (cm) - Length 1.5 1.4 -Post Debridement (cm) - Width 1.9 1.6 -Post Debridement (cm) - Depth 0.1 0.1 -Total Square (Post) (cm) 2.85 2.24 -Area of Debridement (cm) - Length 1.5 1.4 -Area of Debridement (cm) - Width 1.9 1.6 -Total Square (Area) (cm) 2.85 2.24 -Tunneling No No -Undermining/Tunneling No No -Circular Undermining No No -Wound/Ulcer Outcome Not Healed Not Healed -Ulcer Cleansing Rinsed/ Rinsed/ Irrigated with Irrigated with Saline Saline -Foul Odor after Cleansing No No -Bioengineered Tissue Yes No -Type of Bioengineered Tissue Epifix Epifix -Expiration Date 11/28/29 11/28/29 -Product Lot Number [id number] -Percent Used 100 100 -Lot number of Saline Used [id number] -Injectable Lidocaine (%) 1 -Lidocaine (ml) 10 -Injectable Lidocaine w/ Epi (%) 1 -Injectable Lidocaine w/ Epi (mls) 10 -Bleeding Controlled with Pressure Pressure -Treatment Response Procedure Procedure Tolerated Well Tolerated Well -Debridement - Subq, 1st 20sq cm No No -Debridement - Muscle / Fascia, 1st 20sq cm -Apply Skin Sub - 1st 25 sq cm - Feet 1 1 -Epifix Application 1-4 (per sq cm) 4 4 -Epifix Mesh Application 1-4 (per sq cm) Pain Scale: 0-10 Numeric Is Patient Pain Free? Yes Yes WC - Nurse 3 - General Ulcer D/C NN Start: 04/29/25 10:32 Freq: Status: Active Protocol: Activity Type Activity Date Activity User E-sign Co-sign Detail Recorded Client Recorded Date Recorded By Document 04/29/25 11:48 KW [id number] 04/29/25 11:49 KW Document 05/06/25 12:23 DL [id number] 05/06/25 12:24 DL Document 05/13/25 11:34 KW [id number] 05/13/25 11:35 KW Document 05/20/25 11:46 DL [id number] 05/20/25 11:47 DL Document 05/27/25 12:29 KW [id number] 05/27/25 12:29 KW 04/29/25 05/06/25 05/13/25 11:48 12:23 11:34 Wound Care Center Nurse 3 1. LT MED HEEL -Foul Odor after Cleansing No -Primary Dressing Applied Aquacel Extra Aquacel Extra Aquacel Extra -Other Dressing Epifix -Primary Dressing Covered/Secured with Dry Gauze & Dry Gauze & Dry Gauze & Roll Gauze, Roll Gauze, Roll Gauze, Secured with Secured with Secured with Tape Tape Tape -Other Covering NASIM -Aquacel Extra 1 1 1 LLE -Compression Wrap Nasim Wrap Nasim Wrap -Other 1- 4 IN Treatment Response Procedure Tolerated Well Pain Scale: 0-10 Numeric Is Patient Pain Free? Yes Yes Yes WC - Visit Discharge Discharge Condition Stable Stable Stable Ambulatory Status Ambulatory Ambulatory Ambulatory Transportation Private Auto Private Auto Private Auto Medication Reconcilliation completed & No No provided to patient/care provider Clinical Summary of Care Provided Yes Yes 05/20/25 05/27/25 11:46 12:29 Wound Care Center Nurse 3 1. LT MED HEEL -Foul Odor after Cleansing No -Primary Dressing Applied Aquacel Extra Aquacel Extra -Other Dressing ePIFIX -Primary Dressing Covered/Secured with Dry Gauze & Dry Gauze & Roll Gauze, Roll Gauze, Secured with Secured with Tape Tape -Other Covering nasim -Aquacel Extra 1 1 LLE -Compression Wrap -Other Treatment Response Procedure Tolerated Well Pain Scale: 0-10 Numeric Is Patient Pain Free? 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: CODE(S): L97.424 - Non-pressure chronic ulcer of left heel and midfoot with necrosis of bone (2) Diabetes mellitus with diabetic polyneuropathy: CODE(S): E11.42 - Type 2 diabetes mellitus with diabetic polyneuropathy (3) Type 2 diabetes mellitus with foot ulcer: CODE(S): E11.621 - Type 2 diabetes mellitus with foot ulcer; L97.509 - Non-pressure chronic ulcer of other part of unspecified foot with unspecified severity (4) Other specified peripheral vascular diseases: CODE(S): I73.89 - Other specified peripheral vascular diseases (5) CAD (coronary artery disease): CODE(S): I25.10 - Atherosclerotic heart disease of [place] coronary artery without angina pectoris PLAN: Plan Patient seen and evaluated Patient does have history of noncompliance with follow-up with appropriate medical staffing for necessary procedures in addition to his uncontrolled DM type II with recent A1c of 14% Does have 25-year history of waxing waning ulceration at the medial aspect of the left heel. PCP has recommended vascular intervention for likely bypass. He has undergone revascularization in [place] for balloon angioplasty of the left lower extremity on 03/17/2025. He has informed me that he has established visit with GI specialist in [place] however this will be in May 2025. Continues to follow with cardiology and has established a provider in [place]. He did undergo revascularization in [place] with a vascular surgeon at [facility] as stated above. Predebridement measurement: 1.3 cm x 1.5 cm x 0.1 cm Debridement was performed as noted in the clinical panel above. Postdebridement measurement 1.4 cm x 1.6 cm x 0.1 cm. Ulcerative site did probe to bone at the plantar medial aspect of the calcaneal tubercle, but continues granulating in well and no longer has significant depth. There is continued reduction in size of ulceration at this visit with continued improvement in granulation tissue, depth, and less serosanguineous drainage versus previous visit. He has been approved for for advanced wound care product, EpiFix. Ulcerative site did undergo application of EpiFix graft #6 ([id number]). No signs of infection at graft site. Site was then dressed with Adaptic touch and anchored with Steri-Strips. Aquacel Ag applied over the Adaptic touch with dry sterile dressing. He is to change outer dressings as needed. He was instructed to keep the site clean and dry and to utilize cast bag when showering to maintain compliance. We have previously discussed stopping application of hydrogen peroxide. Discussed washing site with soap and water patting area dry with fresh clean towel/rag followed with Dakin's wash flushed by normal sterile saline. He may then continue betadine wet to dry dressing after packing with iodoform gauze. He was sent for radiograph 02/04/25 of the left foot [facility]. Radiograph demonstrates some air density projecting over the plantar soft tissues near the left heel region/plantar calcaneal spur. This could be potentially due to gas producing infection or recent penetrating injury. Close correlation with clinical exam findings recommended. Radiologist also states that if concern is for osteomyelitis MRI evaluation is recommended. I have independently reviewed the imaging and do concur with the radiographic read. He underwent MRI on 02/26/2025 of the left foot. Interpretation as large medial sided heel ulceration without soft tissue abscess. Minimal 1 cm area of calcaneal edema at the medial plantar fascia attachment. Cannot determine if reactive osteitis versus very early change of osteomyelitis. I have reviewed and discussed these images and findings with the patient. Due to possibility of osteomyelitis he was prescribed a course of oral doxycycline 100 mg twice daily x 6 weeks (stop date 04/15/2025). Rx gabapentin 100 mg 3 times daily x 30 days. 1 refill was given, however he reports this does not help him. OARS was checked. Rx oxycodone acetaminophen 5/325mg. 42 tablets were dispensed on 03/04/25. He is to take 1 tablet every 8 hours for his ulcerative pain. LEAS was ordered. LEAS demonstrate right DP waveform triphasic and PT waveform biphasic, right KESHIA 1.12, right PT indices 0.80, DP indices 0.80, right digital indices 0.52; left PT artery waveforms are monophasic and the left DP waveforms are monophasic, left KESHIA 1.17, l left PT indices 0.50, left DP indices 0.44, unable to obtain digital pressure. 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 Venous studies were negative for DVT. No evidence of reflux or valvular incompetence. He did see Dr. Batista on 02/19/25 to discuss vascular studies. They are recommending CTA abdominal pelvis with runoff to evaluate for atherosclerotic burden and determine interventional options pending recent kidney function lab. Vascular also awaiting further cardiology analysis and are refraining from initiation of Pletal at this time until status can be given. He is can to continue ASA daily. I did discuss with patient at length the need to follow with a vascular surgeon to reestablish blood flow to the lower extremity to aid in allowing for healing of this ulcerative site. I have also discussed the necessary need to follow-up with cardiology for intervention of his coronary artery disease which may likely require stent placing. I have also discussed the need to undergo diet modification and to take the necessary medications to aid in glycemic control to reduce his A1c from 14 to under 7. Discussed this is all necessary to aid in healing and for salvage of his lower extremity. I have discussed with him at length for failure to follow through on these will likely require an amputation of the lower extremity and possibly complicate more proximal amputation healing in addition to undue burden of stress on his heart which will likely lead to his passing. He voices understanding of this, however he has heard this from his PCP and has still not followed up as of 02/04/2025. He does report that he has now established cardiology visit and was seen 02/19/2025. Will follow-up with vascular as stated above. Discussed signs and symptoms of infection today. Discussed if he notices increasing redness around the ulcerative site that moves up the leg, purulent drainage from the wound site, increasing foul odor from the wound site, or if he experiences fever greater than 101 degree accompanied by nausea, vomiting, chills of these are signs of a progressing infection and he should report to the ED for IV antibiotics and for further evaluation. He voices understanding of this today. The following work up and care recommendations were made: Dressing: EpiFix, Adaptic touch, Steri-Strips, Aquacel Ag, dry sterile dressing. Change outer dressing as needed. Wash: Do not get wet Tissue growth optimization: EpiFix Offload: Will wear surgical shoe at all times of ambulation Vascular: PVD, have ordered updated vascular studies awaiting results. Edema: None Infection: No signs of infection currently. Pain: May take [id number] Tylenol for pain Host factors: Noncompliance, CAD, PVD, uncontrolled DM type II, Sikhism status (Mosque) all complicate healing. I answered all the patient's questions. To return to the wound healing center in 1 week or call sooner if the patient has any questions or concerns.
== END 2025-05-27 23:59 | disposition home or self-care (01) ==
LOC: WC 11:15
PROVIDERS: PCP Family Medicine; Referring Provider Family Medicine; Visit Provider Student in an Organized Health Care Education/Training Program
DX: E11.51 Type 2 diabetes mellitus with diabetic peripheral angiopathy without gangrene (principal); I70.244 Atherosclerosis of native arteries of left leg with ulceration of heel and midfoot; E11.621 Type 2 diabetes mellitus with foot ulcer; L97.422 Non-pressure chronic ulcer of left heel and midfoot with fat layer exposed; E11.42 Type 2 diabetes mellitus with diabetic polyneuropathy; Z79.4 Long term (current) use of insulin; L90.5 Scar conditions and fibrosis of skin; W20.8XXS Other cause of strike by thrown, projected or falling object, sequela; I25.10 Atherosclerotic heart disease of native coronary artery without angina pectoris; Z79.84 Long term (current) use of oral hypoglycemic drugs; Z79.82 Long term (current) use of aspirin; Z79.899 Other long term (current) drug therapy
CPT/HCPCS: 15275; Q4186

== ENCOUNTER 2025-06-17 11:00 | Outpatient (RCR) | payer MEDICAID, SELFPAY ==
[2025-06-03 11:15] VITALS: BP 127/86; PULSE 104; RESP 18; TEMP 36.1
--- NOTE | 2025-06-03 13:13 | PN.PCM_ITS ---
History of Present Illness Date of Service: 06/03/25 Chief Complaint: Left medial heel ulceration History of Wound: Patient is a 54-year-old male who was referred to the wound care center by his PCP in [place] for a chronic left medial heel ulceration. Patient states that the ulceration has waxed and waned for 25 years following an old injury to his left foot in which steel sheet-metal was dropped onto his foot and ankle. He did undergo reconstructive surgery at that time to fixated despite initial physician recommendation of BKA. He has PMHx of uncontrolled DM type II with peripheral polyneuropathy with recent A1c of 14%, CAD with recommended cardiac bypass that was supposed to take place in [place] however never happened, pancreatic pseudocyst and alcoholic cirrhosis which was recommended to follow-up with GI in [place] however that also never happened, HTN, HLD with refusal to take statin. Patient also apparently has had long discussions with his primary care about the possibility of needing bypass to establish blood flow to heal the wound and would need a multiple specialist a [facility] in order to achieve healing. Patient also has limitations not wanting to get blood products he needs for major surgery. Patient did have labs performed in [place] prior to visit. States that he had previously was on doxycycline and had completed this. He denies any N/V/F/chills. Denies further complaints. Subjective Subjective This is a 55-year-old male who returns to wound care center for continued care of the left medial heel ulceration. Continues to follow with cardiology and a GI specialist. He is post revascularization surgery on 03/17/2025 at [facility]. He has left grafting product in place to the left heel and does notes continued improvement with continued decreasing wound size and states he is nearing katherine sure. He is very pleased with this. He states it continuing to be less painful. He remains very optimistic and healing this ulceration so that he can go forward with heart surgery. States facility is noting it is healing well and they did move up his cardiology visit for potential surgery to July 05. Denies constitutional symptoms. Denies further complaints. Objective Data Objective Data Vital Signs: Vital Signs Temp Pulse Resp BP 97 F L 104 H 18 127/86 H 06/03/25 11:15 06/03/25 11:15 06/03/25 11:15 06/03/25 11:15 Physical Exam Const alert, oriented x3 and no apparent distress General Appearance: cooperative HEENT normocephalic Eyes General Eye: normal appearance of both eyes Neck General: normal visual inspection Lymph Lymphatic: no lymphadenopathy noted and no lymphedema noted Resp normal respiratory effort Cardio regular rate and regular rhythm Extremity no calf tenderness Extremity Narrative: Left lower extremity: Vascular: DP and PT pulses nonpalpable. Monophasic pulses on Doppler. CFT is delayed and sluggish to digits. Normal temperature gradient. Pedal hair growth is diminished at digits. Neurologic: Gross sensation intact. Protective sensation is diminished consistent with diabetic peripheral polyneuropathy however does still have some sensation about the heel and ulcerative site. Musculoskeletal: Muscle strength 5 of 5 age-appropriate. There is pain to palpation around the ulcerative site at the calcaneus. No pain to palpation of calf. Dermatologic: There is a cicatrix noted along the medial aspect of the ankle consistent with prior surgical reconstruction following his injury. There is a medial calcaneal wall ulceration that extends to the plantar portion of the fat pad near the calcaneal tubercles. Ulceration is full-thickness with granular wound bed. There is no malodor noted today as this is improved from prior visits. No soft tissue crepitus to palpation. No purulent drainage is expressible. Ulcerative site did probe to bone along the plantar medial wall of the calcaneus, but this is granulating in well. Skin no rashes or lesions noted Neuro moves all extremities Debridement Note Debridement Note Wound debrided: Right heel Laterality: Right Wound Grade/Stage: Flores stage II Type of Debridement: Excisional debridement Anesthesia Used: 5% Lidocaine Gel and - (8 cc 1% lidocaine with epinephrine) Depth: Down to and including healthy tissue and in the subcutaneous layer Percentage of wound debrided: 100 Instrument Used: 7mm curette Tissue Removed: Fibrous, devitalized subcutaneous, biofilm, slough Severity: Fat Layer Exposed Amount of bleeding with debridement: Mild Bleeding Controlled with: Compression and gauze Patient tolerated procedure: Patient tolerated procedure well Post-Debridement Measurements and Additional Note: Post-Debridement Measurements/Treatment EFRA - Nurse 1 - General Ulcer Assessment Start: 06/03/25 11:15 Freq: Status: Active Protocol: [facility] Activity Type Activity Date Activity User E-sign Co-sign Detail Recorded Client Recorded Date Recorded By Document 06/03/25 11:15 DL [id number] 06/03/25 11:18 DL 06/03/25 11:15 WC - Today's Visit Information Type of service Follow-up Visit (Physician/PLANT INSPECTOR ) Arrival Mode Ambulatory Transfer Assistance None Patient Identification Verified (Name & Yes ) Patient Requires Transmission-Based No Precautions Vital Signs Temperature (97.8 F-99.1 F) 97 F L Temperature Source Temporal Pulse Rate (60-100) 104 H Pulse Location Monitor Respiratory Rate (12-18) 18 Respiratory rate source Observation Blood Pressure (90/60-120/80) 127/86 H Blood Pressure Mean (mm Hg) 99 Source Monitor History Since Last Visit- (Skip if this is Patient's initial visit) Have you changed medications since your No last visit? Any new allergies or adverse reactions No Had a fall/change in ADL's that may No increase risk of falls Signs or symptoms of abuse and/or No neglect since last visit Have you been in the hospital since your No last visit? Has dressing in place as prescribed Yes Has compression in place as prescribed No Has offloadiing in place as prescribed No Experienced any changes in pain level or No management Pain Scale: 0-10 Numeric Is Patient Pain Free? Yes - Nurse 1 - General Ulcer Measurement Start: 06/03/25 11:15 Freq: Status: Active Protocol: Activity Type Activity Date Activity User E-sign Co-sign Detail Recorded Client Recorded Date Recorded By Document 06/03/25 11:15 DL [id number] 06/03/25 11:18 DL 06/03/25 11:15 Wound Center Nurse 1 1. LT MED HEEL -Current Size (cm) - Length 2.5 -Current Size (cm) - Width 1.5 -Current Size (cm) - Depth 0.1 -Total Square Cm 3.75 -Photo Taken Yes -Exudate Amt Small -Wound Margin Thickened -Granulation Amt None Present (0 %) -Necrosis Amt Large (67-100%) -Necrotic Tissue Type Eschar -Structure Exposed N/A -Texture (Amena-wound Skin Appearance) Scarring -Moisture (Amena-wound Skin Appearance) Dry/Scaly -Color (Amena-wound Skin Appearance) No Abnormality -Temperature (Amena-wound Skin No Abnormality Appearance) (Pt Warm) -Tenderness on Palpation (Amena-wound No Skin Appearance) -Ulcer Cleansing Soap and Water -Foul Odor after Cleansing No WC - Nurse 2 - General Ulcer CM Notes Start: 06/03/25 11:15 Freq: Status: Active Protocol: Activity Type Activity Date Activity User E-sign Co-sign Detail Recorded Client Recorded Date Recorded By Document 06/03/25 11:40 DS [id number] 06/03/25 11:46 DS Edit Result 06/03/25 11:40 DS (1) [id number] 06/03/25 13:05 DS (1) 1. LT MED HEEL - Post Debridement (cm) - Length => 0.1 - Post Debridement (cm) - Width => 0.1 - Post Debridement (cm) - Depth => 0.1 - Total Square (Post) (cm) => 0.01 - Area of Debridement (cm) - Length => 0.1 - Area of Debridement (cm) - Width => 0.1 - Total Square (Area) (cm) => 0.01 06/03/25 11:40 Wound Center Nurse 2 -Time 11:40 -Correct Patient Yes -Correct Side, Site, Position Yes -Correct Procedure Yes -Procedure Performed Yes -Type of Procedure Debridement -Clinical Debridement Subcutaneous -Tissue Removed Subcutaneous -Post Debridement (cm) - Length 0.1 -Post Debridement (cm) - Width 0.1 -Post Debridement (cm) - Depth 0.1 -Total Square (Post) (cm) 0.01 -Area of Debridement (cm) - Length 0.1 -Area of Debridement (cm) - Width 0.1 -Total Square (Area) (cm) 0.01 -Tunneling No -Undermining/Tunneling No -Circular Undermining No -Wound/Ulcer Outcome Not Healed -Ulcer Cleansing Rinsed/ Irrigated with Saline -Foul Odor after Cleansing No -Bioengineered Tissue No -Type of Bioengineered Tissue Epifix -Expiration Date 11/28/29 -Product Lot Number [id number] -Percent Used 100 -Lot number of Saline Used [id number] -Injectable Lidocaine w/ Epi (%) 1 -Injectable Lidocaine w/ Epi (mls) 10 -Bleeding Controlled with Pressure -Treatment Response Procedure Tolerated Well -Debridement - Subq, 1st 20sq cm No -Apply Skin Sub - 1st 25 sq cm - Feet 1 -Epifix Application 1-4 (per sq cm) 4 Pain Scale: 0-10 Numeric Is Patient Pain Free? Yes WC - Nurse 3 - General Ulcer D/C NN Start: 06/03/25 11:15 Freq: Status: Active Protocol: Activity Type Activity Date Activity User E-sign Co-sign Detail Recorded Client Recorded Date Recorded By Document 06/03/25 11:56 CP [id number] 06/03/25 11:56 CP 06/03/25 11:56 Wound Care Center Nurse 3 1. LT MED HEEL -Primary Dressing Applied Aquacel Extra -Other Dressing ABD, KERLIX, TAPE, DOMENIC -Aquacel Extra 1 Pain Scale: 0-10 Numeric Is Patient Pain Free? 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: CODE(S): L97.424 - Non-pressure chronic ulcer of left heel and midfoot with necrosis of bone (2) Diabetes mellitus with diabetic polyneuropathy: CODE(S): E11.42 - Type 2 diabetes mellitus with diabetic polyneuropathy (3) Type 2 diabetes mellitus with foot ulcer: CODE(S): E11.621 - Type 2 diabetes mellitus with foot ulcer; L97.509 - Non-pressure chronic ulcer of other part of unspecified foot with unspecified severity (4) Other specified peripheral vascular diseases: CODE(S): I73.89 - Other specified peripheral vascular diseases (5) Atherosclerosis of left lower extremity with ulceration: CODE(S): I70.249 - Atherosclerosis of [place] arteries of left leg with ulceration of unspecified site (6) CAD (coronary artery disease): CODE(S): I25.10 - Atherosclerotic heart disease of [place] coronary artery without angina pectoris PLAN: Plan Patient seen and evaluated Patient does have history of noncompliance with follow-up with appropriate medical staffing for necessary procedures in addition to his uncontrolled DM type II with recent A1c of 14% Does have 25-year history of waxing waning ulceration at the medial aspect of the left heel. PCP has recommended vascular intervention for likely bypass. He has undergone revascularization in [place] for balloon angioplasty of the left lower extremity on 03/17/2025. He has informed me that he has established visit with GI specialist in [place] however this will be in May 2025. Continues to follow with cardiology and has established a provider in [place]. He did undergo revascularization in [place] with a vascular surgeon at [facility] as stated above. Predebridement measurement: dried graft Debridement was performed as noted in the clinical panel above. Postdebridement measurement 0.1 cm x 0.1 cm x 0.1 cm. Ulcerative site did probe to bone at the plantar medial aspect of the calcaneal tubercle, but continues granulating in well and no longer has significant depth. There is continued reduction in size of ulceration at this visit with continued improvement in granulation tissue, depth, and less serosanguineous drainage versus previous visit and he is nearing closure. He has been approved for for advanced wound care product, EpiFix. Ulcerative site did undergo application of EpiFix graft #7 ([id number]). No signs of infection at graft site. Site was then dressed with Adaptic touch and anchored with Steri-Strips. Aquacel Ag applied over the Adaptic touch with dry sterile dressing. He is to change outer dressings as needed. He was instructed to keep the site clean and dry and to utilize cast bag when showering to maintain compliance. We have previously discussed stopping application of hydrogen peroxide. Discussed washing site with soap and water patting area dry with fresh clean towel/rag followed with Dakin's wash flushed by normal sterile saline. He may then continue betadine wet to dry dressing after packing with iodoform gauze. He was sent for radiograph 02/04/25 of the left foot [facility]. Radiograph demonstrates some air density projecting over the plantar soft tissues near the left heel region/plantar calcaneal spur. This could be potentially due to gas producing infection or recent penetrating injury. Close correlation with clinical exam findings recommended. Radiologist also states that if concern is for osteomyelitis MRI evaluation is recommended. I have independently reviewed the imaging and do concur with the radiographic read. He underwent MRI on 02/26/2025 of the left foot. Interpretation as large medial sided heel ulceration without soft tissue abscess. Minimal 1 cm area of calcaneal edema at the medial plantar fascia attachment. Cannot determine if reactive osteitis versus very early change of osteomyelitis. I have reviewed and discussed these images and findings with the patient. Due to possibility of osteomyelitis he was prescribed a course of oral doxycycline 100 mg twice daily x 6 weeks (stop date 04/15/2025). Rx gabapentin 100 mg 3 times daily x 30 days. 1 refill was given, however he reports this does not help him. OARS was checked. Rx oxycodone acetaminophen 5/325mg. 42 tablets were dispensed on 03/04/25. He is to take 1 tablet every 8 hours for his ulcerative pain. LEAS was ordered. LEAS demonstrate right DP waveform triphasic and PT waveform biphasic, right KESHIA 1.12, right PT indices 0.80, DP indices 0.80, right digital indices 0.52; left PT artery waveforms are monophasic and the left DP waveforms are monophasic, left KESHIA 1.17, l left PT indices 0.50, left DP indices 0.44, unable to obtain digital pressure. 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 Venous studies were negative for DVT. No evidence of reflux or valvular incompetence. He did see Dr. Batista on 02/19/25 to discuss vascular studies. They are recommending CTA abdominal pelvis with runoff to evaluate for atherosclerotic burden and determine interventional options pending recent kidney function lab. Vascular also awaiting further cardiology analysis and are refraining from initiation of Pletal at this time until status can be given. He is can to continue ASA daily. I did discuss with patient at length the need to follow with a vascular surgeon to reestablish blood flow to the lower extremity to aid in allowing for healing of this ulcerative site. I have also discussed the necessary need to follow-up with cardiology for intervention of his coronary artery disease which may likely require stent placing. I have also discussed the need to undergo diet modification and to take the necessary medications to aid in glycemic control to reduce his A1c from 14 to under 7. Discussed this is all necessary to aid in h ealing and for salvage of his lower extremity. I have discussed with him at length for failure to follow through on these will likely require an amputation of the lower extremity and possibly complicate more proximal amputation healing in addition to undue burden of stress on his heart which will likely lead to his passing. He voices understanding of this, however he has heard this from his PCP and has still not followed up as of 02/04/2025. He does report that he has now established cardiology visit and was seen 02/19/2025. Will follow-up with vascular as stated above. Discussed signs and symptoms of infection today. Discussed if he notices increasing redness around the ulcerative site that moves up the leg, purulent drainage from the wound site, increasing foul odor from the wound site, or if he experiences fever greater than 101 degree accompanied by nausea, vomiting, chills of these are signs of a progressing infection and he should report to the ED for IV antibiotics and for further evaluation. He voices understanding of this today. The following work up and care recommendations were made: Dressing: EpiFix, Adaptic touch, Steri-Strips, Aquacel Ag, dry sterile dressing. Change outer dressing as needed. Wash: Do not get wet Tissue growth optimization: EpiFix Offload: Will wear surgical shoe at all times of ambulation Vascular: PVD, have ordered updated vascular studies awaiting results. Edema: None Infection: No signs of infection currently. Pain: May take [id number] Tylenol for pain Host factors: Noncompliance, CAD, PVD, uncontrolled DM type II, Hinduism status ([employer]ist) all complicate healing. I answered all the patient's questions. To return to the wound healing center in 1 week or call sooner if the patient has any questions or concerns.
--- NOTE | 2025-06-03 13:20 | WC ---
PHOTO-LEFT MED ANKLE 06/03/25
[2025-06-10 11:27] VITALS: BP 121/81; PULSE 113; RESP 16; TEMP 36.8
--- NOTE | 2025-06-10 13:27 | PN.PCM_ITS ---
History of Present Illness Date of Service: 06/10/25 Chief Complaint: Left medial heel ulceration History of Wound: Patient is a 54-year-old male who was referred to the wound care center by his PCP in [place] for a chronic left medial heel ulceration. Patient states that the ulceration has waxed and waned for 25 years following an old injury to his left foot in which steel sheet-metal was dropped onto his foot and ankle. He did undergo reconstructive surgery at that time to fixated despite initial physician recommendation of BKA. 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 Patient also apparently has had long discussions with his primary care about the possibility of needing bypass to establish blood flow to heal the wound and would need a multiple specialist a [facility] in order to achieve healing. Patient also has limitations not wanting to get blood products he needs for major surgery. Patient did have labs performed in [place] prior to visit. States that he had previously was on doxycycline and had completed this. He denies any N/V/F/chills. Denies further complaints. Subjective Subjective This is a 55-year-old male who returns to wound care center for continued care of the left medial heel ulceration. Continues to follow with cardiology and a GI specialist. He is post revascularization surgery on 03/17/2025 at [facility]. He has left grafting product in place to the left heel and does notes continued improvement with continued decreasing wound size and states he is nearing katherine sure. He is very pleased with this. He states it has no pain today. He remains very optimistic and feels ulceration is now healed which means that he can go forward with heart surgery. States facility is noting it is healing well and they did move up his cardiology visit for potential surgery to July 05. Denies constitutional symptoms. Denies further complaints. Objective Data Objective Data Vital Signs: Vital Signs Temp Pulse Resp BP 98.3 F 113 H 16 121/81 H 06/10/25 11:27 06/10/25 11:27 06/10/25 11:27 06/10/25 11:27 Physical Exam Const alert, oriented x3 and no apparent distress General Appearance: cooperative HEENT normocephalic Eyes General Eye: normal appearance of both eyes Neck General: normal visual inspection Lymph Lymphatic: no lymphadenopathy noted and no lymphedema noted Resp normal respiratory effort Cardio regular rate and regular rhythm Extremity no calf tenderness Extremity Narrative: Left lower extremity: Vascular: DP and PT pulses nonpalpable. Monophasic pulses on Doppler. CFT is delayed and sluggish to digits. Normal temperature gradient. Pedal hair growth is diminished at digits. Neurologic: Gross sensation intact. Protective sensation is diminished consistent with diabetic peripheral polyneuropathy however does still have some sensation about the heel and ulcerative site. Musculoskeletal: Muscle strength 5 of 5 age-appropriate. There is pain to palpation around the ulcerative site at the calcaneus. No pain to palpation of calf. Dermatologic: There is a cicatrix noted along the medial aspect of the ankle consistent with prior surgical reconstruction following his injury. There is a medial calcaneal wall ulceration that previously extended to the plantar portion of the fat pad near the calcaneal tubercles. Ulceration now demonstrates epithelialization and is nearly fully healed. No soft tissue crepitus to palpation. No purulent drainage is expressible. No signs of infection. Skin no rashes or lesions noted Neuro moves all extremities Debridement Note Debridement Note No debridement was completed: No debridement was completed today Post-Debridement Measurements and Additional Note: Post-Debridement Measurements/Treatment - Nurse 1 - General Ulcer Assessment Start: 06/03/25 11:15 Freq: Status: Active Protocol: WC.LOWAUNDREAT Activity Type Activity Date Activity User E-sign Co-sign Detail Recorded Client Recorded Date Recorded By Document 06/03/25 11:15 DL [id number] 06/03/25 11:18 DL Document 06/10/25 11:27 DL [id number] 06/10/25 11:31 DL 06/03/25 06/10/25 11:15 11:27 - Today's Visit Information Type of service Follow-up Visit Follow-up Visit (Physician/DUMBWAITER OPERATOR (Physician/DUMBWAITER OPERATOR ) ) Arrival Mode Ambulatory Ambulatory Transfer Assistance None None Patient Identification Verified (Name & Yes Yes ) Patient Requires Transmission-Based No No Precautions Vital Signs Temperature (97.8 F-99.1 F) 97 F L 98.3 F Temperature Source Temporal Temporal Pulse Rate (60-100) 104 H 113 H Pulse Location Monitor Monitor Respiratory Rate (12-18) 18 16 Respiratory rate source Observation Observation Blood Pressure (90/60-120/80) 127/86 H 121/81 H Blood Pressure Mean (mm Hg) 99 94 Source Monitor History Since Last Visit- (Skip if this is Patient's initial visit) Have you changed medications since your No No last visit? Any new allergies or adverse reactions No No Had a fall/change in ADL's that may No No increase risk of falls Signs or symptoms of abuse and/or No No neglect since last visit Have you been in the hospital since your No No last visit? Has dressing in place as prescribed Yes Yes Has compression in place as prescribed No Yes Has offloadiing in place as prescribed No N/A Experienced any changes in pain level or No No management Left Footwear Regular Shoe Right Footwear Regular Shoe Pain Scale: 0-10 Numeric Is Patient Pain Free? Yes Yes WC - Nurse 1 - General Ulcer Measurement Start: 06/03/25 11:15 Freq: Status: Active Protocol: Activity Type Activity Date Activity User E-sign Co-sign Detail Recorded Client Recorded Date Recorded By Document 06/03/25 11:15 DL [id number] 06/03/25 11:18 DL Document 06/10/25 11:27 DL [id number] 06/10/25 11:31 DL 06/03/25 06/10/25 11:15 11:27 Wound Center Nurse 1 1. LT MED HEEL -Current Size (cm) - Length 2.5 0.1 -Current Size (cm) - Width 1.5 0.1 -Current Size (cm) - Depth 0.1 0.1 -Total Square Cm 3.75 0.01 -Photo Taken Yes Yes -Exudate Amt Small None Present -Wound Margin Thickened Thickened -Granulation Amt None Present (0 Large (67-100%) %) -Granulation Quality Pale,[place] -Necrosis Amt Large (67-100%) Small (1-33%) -Necrotic Tissue Type Eschar Adherent Slough -Structure Exposed N/A N/A -Texture (Amena-wound Skin Appearance) Scarring Scarring -Moisture (Amena-wound Skin Appearance) Dry/Scaly Dry/Scaly -Color (Amena-wound Skin Appearance) No Abnormality No Abnormality -Temperature (Amena-wound Skin No Abnormality No Abnormality Appearance) (Pt Warm) (Pt Warm) -Tenderness on Palpation (Amena-wound No No Skin Appearance) -Ulcer Cleansing Soap and Water Soap and Water -Foul Odor after Cleansing No No -Anesthetic Used 5% Lidocaine Gel WC - Nurse 2 - General Ulcer CM Notes Start: 06/03/25 11:15 Freq: Status: Active Protocol: Activity Type Activity Date Activity User E-sign Co-sign Detail Recorded Client Recorded Date Recorded By Document 06/03/25 11:40 DS [id number] 06/03/25 11:46 DS Edit Result 06/03/25 11:40 DS (1) [id number] 06/03/25 13:05 DS Document 06/10/25 12:12 BMF [id number] 06/10/25 12:16 BMF (1) 1. LT MED HEEL - Post Debridement (cm) - Length => 0.1 - Post Debridement (cm) - Width => 0.1 - Post Debridement (cm) - Depth => 0.1 - Total Square (Post) (cm) => 0.01 - Area of Debridement (cm) - Length => 0.1 - Area of Debridement (cm) - Width => 0.1 - Total Square (Area) (cm) => 0.01 06/03/25 06/10/25 11:40 12:12 Wound Center Nurse 2 1. LT MED HEEL -Time 11:40 12:12 -Correct Patient Yes -Correct Side, Site, Position Yes -Correct Procedure Yes -Procedure Performed Yes No -Type of Procedure Debridement -Clinical Debridement Subcutaneous -Tissue Removed Subcutaneous -Post Debridement (cm) - Length 0.1 0.1 -Post Debridement (cm) - Width 0.1 0.1 -Post Debridement (cm) - Depth 0.1 0.1 -Total Square (Post) (cm) 0.01 0.01 -Area of Debridement (cm) - Length 0.1 0.1 -Area of Debridement (cm) - Width 0.1 0.1 -Total Square (Area) (cm) 0.01 0.01 -Tunneling No No -Undermining/Tunneling No No -Circular Undermining No No -Wound/Ulcer Outcome Not Healed Not Healed -Ulcer Cleansing Rinsed/ Irrigated with Saline -Foul Odor after Cleansing No -Bioengineered Tissue No -Type of Bioengineered Tissue Epifix -Expiration Date 11/28/29 -Product Lot Number [id number] -Percent Used 100 -Lot number of Saline Used [id number] -Injectable Lidocaine w/ Epi (%) 1 -Injectable Lidocaine w/ Epi (mls) 10 -Bleeding Controlled with Pressure NA -Treatment Response Procedure Tolerated Well -Debridement - Subq, 1st 20sq cm No -Apply Skin Sub - 1st 25 sq cm - Feet 1 -Epifix Application 1-4 (per sq cm) 4 Pain Scale: 0-10 Numeric Is Patient Pain Free? Yes Yes - Nurse 3 - General Ulcer D/C NN Start: 06/03/25 11:15 Freq: Status: Active Protocol: Activity Type Activity Date Activity User E-sign Co-sign Detail Recorded Client Recorded Date Recorded By Document 06/03/25 11:56 CP [id number] 06/03/25 11:56 CP Document 06/10/25 11:55 BMF [id number] 06/10/25 13:25 BMF 06/03/25 06/10/25 11:56 11:55 Wound Care Center Nurse 3 1. LT MED HEEL -Primary Dressing Applied Aquacel Extra Silicone Border Foam 4x4 -Other Dressing ABD, KERLIX, TAPE, DOMENIC -Aquacel Extra 1 -Silicone Border Foam 4x4 1 Pain Scale: 0-10 Numeric Is Patient Pain Free? 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: CODE(S): L97.424 - Non-pressure chronic ulcer of left heel and midfoot with necrosis of bone (2) Diabetes mellitus with diabetic polyneuropathy: CODE(S): E11.42 - Type 2 diabetes mellitus with diabetic polyneuropathy (3) Type 2 diabetes mellitus with foot ulcer: CODE(S): E11.621 - Type 2 diabetes mellitus with foot ulcer; L97.509 - Non-pressure chronic ulcer of other part of unspecified foot with unspecified severity (4) Other specified peripheral vascular diseases: CODE(S): I73.89 - Other specified peripheral vascular diseases (5) Atherosclerosis of left lower extremity with ulceration: CODE(S): I70.249 - Atherosclerosis of [place] arteries of left leg with ulceration of unspecified site (6) CAD (coronary artery disease): CODE(S): I25.10 - Atherosclerotic heart disease of [place] coronary artery without angina pectoris PLAN: Plan Patient seen and evaluated Patient does have history of noncompliance with follow-up with appropriate medical staffing for necessary procedures in addition to his uncontrolled DM type II with recent A1c of 14% Does have 25-year history of waxing waning ulceration at the medial aspect of the left heel. PCP has recommended vascular intervention for likely bypass. He has undergone revascularization in [place] for balloon angioplasty of the left lower extremity on 03/17/2025. He has informed me that he has established visit with GI specialist in [place] however this will be in May 2025. Continues to follow with cardiology and has established a provider in [place]. He did undergo revascularization in [place] with a vascular surgeon at [facility] as stated above. Predebridement measurement: dried graft Debridement was not performed as noted in the clinical panel above. Postdebridement measurement 0.1 cm x 0.1 cm x 0.1 cm with epithelialization. Ulcerative site did probe to bone at the plantar medial aspect of the calcaneal tubercle, but continues granulating in well and is nearly healed today. There is continued reduction in size of ulceration at this visit with continued improvement with epithelialization noted in site nearly healed. He has been approved for for advanced wound care product, EpiFix. Ulcerative site did undergo application of EpiFix graft #7 ([id number]) on 06/03/2025. No signs of infection at graft site. No graft was placed today as site is nearly healed. [place] SAP dressing was applied to pad and protect the area for the next 7 to 10 days. Discussed rechecking site next week, he is in agreement with this. He was sent for radiograph 02/04/25 of the left foot [facility]. Radiograph demonstrates some air density projecting over the plantar soft tissues near the left heel region/plantar calcaneal spur. This could be potentially due to gas producing infection or recent penetrating injury. Close correlation with clinical exam findings recommended. Radiologist also states that if concern is for osteomyelitis MRI evaluation is recommended. I have independently reviewed the imaging and do concur with the radiographic read. He underwent MRI on 02/26/2025 of the left foot. Interpretation as large medial sided heel ulceration without soft tissue abscess. Minimal 1 cm area of [place] eal edema at the medial plantar fascia attachment. Cannot determine if reactive osteitis versus very early change of osteomyelitis. I have reviewed and discussed these images and findings with the patient. Due to possibility of osteomyelitis he was prescribed a course of oral doxycycline 100 mg twice daily x 6 weeks (stop date 04/15/2025). Rx gabapentin 100 mg 3 times daily x 30 days. 1 refill was given, however he reports this does not help him. OARS was checked. Rx oxycodone acetaminophen 5/325mg. 42 tablets were dispensed on 03/04/25. He is to take 1 tablet every 8 hours for his ulcerative pain. LEAS was ordered. LEAS demonstrate right DP waveform triphasic and PT waveform biphasic, right KESHIA 1.12, right PT indices 0.80, DP indices 0.80, right digital indices 0.52; left PT artery waveforms are monophasic and the left DP waveforms are monophasic, left KESHIA 1.17, l left PT indices 0.50, left DP indices 0.44, unable to obtain digital pressure. 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 Venous studies were negative for DVT. No evidence of reflux or valvular incompetence. He did see Dr. Batista on 02/19/25 to discuss vascular studies. They are recommending CTA abdominal pelvis with runoff to evaluate for atherosclerotic burden and determine interventional options pending recent kidney function lab. Vascular also awaiting further cardiology analysis and are refraining from initiation of Pletal at this time until status can be given. He is can to continue ASA daily. I did discuss with patient at length the need to follow with a vascular surgeon to reestablish blood flow to the lower extremity to aid in allowing for healing of this ulcerative site. I have also discussed the necessary need to follow-up with cardiology for intervention of his coronary artery disease which may likely require stent placing. I have also discussed the need to undergo diet modification and to take the necessary medications to aid in glycemic control to reduce his A1c from 14 to under 7. Discussed this is all necessary to aid in healing and for salvage of his lower extremity. I have discussed with him at length for failure to follow through on these will likely require an amputation of the lower extremity and possibly complicate more proximal amputation healing in addition to undue burden of stress on his heart which will likely lead to his passing. He voices understanding of this, however he has heard this from his PCP and has still not followed up as of 02/04/2025. He does report that he has now established cardiology visit and was seen 02/19/2025. Will follow-up with vascular as stated above. Discussed signs and symptoms of infection today. Discussed if he notices increasing redness around the ulcerative site that moves up the leg, purulent drainage from the wound site, increasing foul odor from the wound site, or if he experiences fever greater than 101 degree accompanied by nausea, vomiting, chills of these are signs of a progressing infection and he should report to the ED for IV antibiotics and for further evaluation. He voices understanding of this today. The following work up and care recommendations were made: Dressing: [place] SAP dressing to pad and protect site for next 7 to 10 days. Wash: Soap and water Tissue growth optimization: None Offload: Will wear surgical shoe at all times of ambulation Vascular: PVD, have ordered updated vascular studies awaiting results. Edema: None Infection: No signs of infection currently. Pain: May take [id number] Tylenol for pain Host factors: Noncompliance, CAD, PVD, uncontrolled DM type II, Zoroastrianism status (Restorationist) all complicate healing. I answered all the patient's questions. To return to the wound healing center in 1 week or call sooner if the patient has any questions or concerns.
--- NOTE | 2025-06-11 09:28 | WC ---
PHOTO-L MED [facility] 06/10/25
[2025-06-17 11:12] VITALS: BP 135/98; PULSE 108; RESP 18; TEMP 35.8
--- NOTE | 2025-06-17 12:16 | PN.PCM_ITS ---
History of Present Illness Chief Complaint: Left medial heel ulceration History of Wound: Patient is a 54-year-old male who was referred to the wound care center by his PCP in [place] for a chronic left medial heel ulceration. Patient states that the ulceration has waxed and waned for 25 years following an old injury to his left foot in which steel sheet-metal was dropped onto his foot and ankle. He did undergo reconstructive surgery at that time to fixated despite initial physician recommendation of BKA. 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 Patient also apparently has had long disc ussions with his primary care about the possibility of needing bypass to establish blood flow to heal the wound and would need a multiple specialist approach in order to achieve healing. Patient also has limitations not wanting to get blood products he needs for major surgery. Patient did have labs performed in [place] prior to visit. States that he had previously was on doxycycline and had completed this. He denies any N/V/F/chills. Denies further complaints. Subjective Subjective This is a 55-year-old male who returns to wound care center for continued care of the left medial heel ulceration. Continues to follow with cardiology and a GI specialist. He is post revascularization surgery on 03/17/2025 at [facility]. States ulceration is healed. He states it has no pain today. He is pleased with healed status which means that he can go forward with heart surgery. Reports cardiology moved up visit for potential surgery to July 05. Denies constitutional symptoms. Denies further complaints. Objective Data Objective Data Vital Signs: Vital Signs Temp Pulse Resp BP O2 Del Method 96.5 F L 108 H 18 135/98 H Room Air 06/17/25 11:12 06/17/25 11:12 06/17/25 11:12 06/17/25 11:12 06/17/25 11:12 Oxygen Delivery Method Room Air Physical Exam Const alert, oriented x3 and no apparent distress General Appearance: cooperative HEENT normocephalic Eyes General Eye: normal appearance of both eyes Neck General: normal visual inspection Lymph Lymphatic: no lymphadenopathy noted and no lymphedema noted Resp normal respiratory effort Cardio regular rate and regular rhythm Extremity no calf tenderness Extremity Narrative: Left lower extremity: Vascular: DP and PT pulses nonpalpable. Monophasic pulses on Doppler. CFT is delayed and sluggish to digits. Normal temperature gradient. Pedal hair growth is diminished at digits. Neurologic: Gross sensation intact. Protective sensation is diminished consistent with diabetic peripheral polyneuropathy however does still have some sensation about the heel and ulcerative site. Musculoskeletal: Muscle strength 5 of 5 age-appropriate. There is pain to palpation around the ulcerative site at the calcaneus. No pain to palpation of calf. Dermatologic: There is a cicatrix noted along the medial aspect of the ankle consistent with prior surgical reconstruction following his injury. There is a medial calcaneal wall ulceration that previously extended to the plantar portion of the fat pad near the calcaneal tubercles. Ulceration demonstrates epithelialization and is fully healed. No soft tissue crepitus to palpation. No purulent drainage is expressible. No signs of infection. Skin no rashes or lesions noted Neuro moves all extremities Debridement Note Debridement Note No debridement was completed: No debridement was completed today Post-Debridement Measurements and Additional Note: Post-Debridement Measurements/Treatment - Nurse 1 - General Ulcer Assessment Start: 06/03/25 11:15 Freq: Status: Active Protocol: [facility] Activity Type Activity Date Activity User E-sign Co-sign Detail Recorded Client Recorded Date Recorded By Document 06/03/25 11:15 DL [id number] 06/03/25 11:18 DL Document 06/10/25 11:27 DL [id number] 06/10/25 11:31 DL Document 06/17/25 11:12 KW [id number] 06/17/25 11:13 KW 06/03/25 06/10/25 06/17/25 11:15 11:27 11:12 - Today's Visit Information Type of service Follow-up Visit Follow-up Visit Follow-up Visit (Physician/HANG GLIDING INSTRUCTOR (Physician/HANG GLIDING INSTRUCTOR (Physician/HANG GLIDING INSTRUCTOR ) ) ) Arrival Mode Ambulatory Ambulatory Ambulatory Transfer Assistance None None Patient Identification Verified (Name & Yes Yes Yes ) Patient Requires Transmission-Based No No Precautions Vital Signs Temperature (97.8 F-99.1 F) 97 F L 98.3 F 96.5 F L Temperature Source Temporal Temporal Temporal Pulse Rate (60-100) 104 H 113 H 108 H Pulse Location Monitor Monitor Monitor Respiratory Rate (12-18) 18 16 18 Respiratory rate source Observation Observation Observation Oxygen Delivery Method Room Air Blood Pressure (90/60-120/80) 127/86 H 121/81 H 135/98 H Blood Pressure Mean (mm Hg) 99 94 110 Source Monitor Monitor Position Semi-Fowlers Blood Pressure Location Left Arm History Since Last Visit- (Skip if this is Patient's initial visit) Have you changed medications since your No No No last visit? Any new allergies or adverse reactions No No No Had a fall/change in ADL's that may No No No increase risk of falls Signs or symptoms of abuse and/or No No No neglect since last visit Have you been in the hospital since your No No No last visit? Has dressing in place as prescribed Yes Yes Yes Has compression in place as prescribed No Yes N/A Has offloadiing in place as prescribed No N/A N/A Experienced any changes in pain level or No No No management Left Footwear Regular Shoe Regular Shoe Right Footwear Regular Shoe Regular Shoe Pain Scale: 0-10 Numeric Is Patient Pain Free? Yes Yes Yes WC - Nurse 1 - General Ulcer Measurement Start: 06/03/25 11:15 Freq: Status: Active Protocol: Activity Type Activity Date Activity User E-sign Co-sign Detail Recorded Client Recorded Date Recorded By Document 06/03/25 11:15 DL [id number] 06/03/25 11:18 DL Document 06/10/25 11:27 DL [id number] 06/10/25 11:31 DL Document 06/17/25 11:12 KW [id number] 06/17/25 11:13 KW 06/03/25 06/10/25 06/17/25 11:15 11:27 11:12 Wound Center Nurse 1 1. LT MED HEEL -Current Size (cm) - Length 2.5 0.1 0.1 -Current Size (cm) - Width 1.5 0.1 0.1 -Current Size (cm) - Depth 0.1 0.1 0 -Total Square Cm 3.75 0.01 0.01 -Date of Last Picture (Recall this 06/17/25 field) -Photo Taken Yes Yes -Exudate Amt Small None Present None Present -Wound Margin Thickened Thickened -Granulation Amt None Present (0 Large (67-100%) None Present (0 %) %) -Granulation Quality Pale,[place] -Necrosis Amt Large (67-100%) Small (1-33%) None Present (0 %) -Necrotic Tissue Type Eschar Adherent Slough -Structure Exposed N/A N/A -Texture (Amena-wound Skin Appearance) Scarring Scarring Assessed,Callus -Moisture (Amena-wound Skin Appearance) Dry/Scaly Dry/Scaly Assessed,Dry/ Scaly -Color (Amena-wound Skin Appearance) No Abnormality No Abnormality Assessed -Temperature (Amena-wound Skin No Abnormality No Abnormality No Abnormality Appearance) (Pt Warm) (Pt Warm) (Pt Warm) -Tenderness on Palpation (Amena-wound No No No Skin Appearance) -Ulcer Cleansing Soap and Water Soap and Water Rinsed/ Irrigated with Saline -Foul Odor after Cleansing No No No -Anesthetic Used 5% Lidocaine Gel WC - Nurse 2 - General Ulcer CM Notes Start: 06/03/25 11:15 Freq: Status: Active Protocol: Activity Type Activity Date Activity User E-sign Co-sign Detail Recorded Client Recorded Date Recorded By Document 06/03/25 11:40 DS [id number] 06/03/25 11:46 DS Edit Result 06/03/25 11:40 DS (1) [id number] 06/03/25 13:05 DS Document 06/10/25 12:12 BMF [id number] 06/10/25 12:16 BMF Document 06/17/25 11:15 BMF [id number] 06/17/25 11:16 BMF (1) 1. LT MED HEEL - Post Debridement (cm) - Length => 0.1 - Post Debridement (cm) - Width => 0.1 - Post Debridement (cm) - Depth => 0.1 - Total Square (Post) (cm) => 0.01 - Area of Debridement (cm) - Length => 0.1 - Area of Debridement (cm) - Width => 0.1 - Total Square (Area) (cm) => 0.01 06/03/25 06/10/25 06/17/25 11:40 12:12 11:15 Wound Center Nurse 2 1. LT MED HEEL -Time 11:40 12:12 11:15 -Correct Patient Yes -Correct Side, Site, Position Yes -Correct Procedure Yes -Procedure Performed Yes No -Type of Procedure Debridement -Clinical Debridement Subcutaneous -Tissue Removed Subcutaneous -Post Debridement (cm) - Length 0.1 0.1 0 -Post Debridement (cm) - Width 0.1 0.1 0 -Post Debridement (cm) - Depth 0.1 0.1 0 -Total Square (Post) (cm) 0.01 0.01 0 -Area of Debridement (cm) - Length 0.1 0.1 0 -Area of Debridement (cm) - Width 0.1 0.1 0 -Total Square (Area) (cm) 0.01 0.01 0 -Tunneling No No -Undermining/Tunneling No No -Circular Undermining No No -Wound/Ulcer Outcome Not Healed Not Healed Healed- Epithelialized -Ulcer Cleansing Rinsed/ Irrigated with Saline -Foul Odor after Cleansing No -Bioengineered Tissue No -Type of Bioengineered Tissue Epifix -Expiration Date 11/28/29 -Product Lot Number [id number] -Percent Used 100 -Lot number of Saline Used [id number] -Injectable Lidocaine w/ Epi (%) 1 -Injectable Lidocaine w/ Epi (mls) 10 -Bleeding Controlled with Pressure NA NA -Treatment Response Procedure Tolerated Well -Debridement - Subq, 1st 20sq cm No -Apply Skin Sub - 1st 25 sq cm - Feet 1 -Epifix Application 1-4 (per sq cm) 4 Pain Scale: 0-10 Numeric Is Patient Pain Free? Yes Yes Yes WC - Nurse 3 - General Ulcer D/C NN Start: 06/03/25 11:15 Freq: Status: Active Protocol: Activity Type Activity Date Activity User E-sign Co-sign Detail Recorded Client Recorded Date Recorded By Document 06/03/25 11:56 CP [id number] 06/03/25 11:56 CP Document 06/10/25 11:55 BMF [id number] 06/10/25 13:25 BMF Document 06/17/25 11:14 KW [id number] 06/17/25 11:14 KW Document 06/17/25 11:16 BMF [id number] 06/17/25 11:17 BMF 06/03/25 06/10/25 06/17/25 11:56 11:55 11:14 Wound Care Center Nurse 3 1. LT MED HEEL -Primary Dressing Applied Aquacel Extra Silicone Border Foam 4x4 -Other Dressing ABD, KERLIX, TAPE, DOMENIC -Aquacel Extra 1 -Silicone Border Foam 4x4 1 -Wound Comment(s) pt healed and discharged Pain Scale: 0-10 Numeric Is Patient Pain Free? Yes Yes Yes WC - Visit Discharge Discharge Condition Stable Stable Stable Ambulatory Status Ambulatory Ambulatory Ambulatory Transportation Private Auto Private Auto Private Auto Medication Reconcilliation completed & No provided to patient/care provider Clinical Summary of Care Provided Yes Yes Notes: 06/17/25 11:16 Wound Care Center Nurse 3 1. LT MED HEEL -Primary Dressing Applied -Other Dressing -Aquacel Extra -Silicone Border Foam 4x4 -Wound Comment(s) Pain Scale: 0-10 Numeric Is Patient Pain Free? 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: CODE(S): L97.424 - Non-pressure chronic ulcer of left heel and midfoot with necrosis of bone (2) Diabetes mellitus with diabetic polyneuropathy: CODE(S): E11.42 - Type 2 diabetes mellitus with diabetic polyneuropathy (3) Type 2 diabetes mellitus with foot ulcer: CODE(S): E11.621 - Type 2 diabetes mellitus with foot ulcer; L97.509 - Non-pressure chronic ulcer of other part of unspecified foot with unspecified severity (4) Other specified peripheral vascular diseases: CODE(S): I73.89 - Other specified peripheral vascular diseases (5) Atherosclerosis of left lower extremity with ulceration: CODE(S): I70.249 - Atherosclerosis of [place]aver arteries of left leg with ulceration of unspecified site (6) CAD (coronary artery disease): CODE(S): I25.10 - Atherosclerotic heart disease of beaver coronary artery without angina pectoris PLAN: Plan Patient seen and evaluated Patient does have history of noncompliance with follow-up with appropriate medical staffing for necessary procedures in addition to his uncontrolled DM type II with recent A1c of 14% Does have 25-year history of waxing waning ulceration at the medial aspect of the left heel. PCP has recommended vascular intervention for likely bypass. He has undergone revascularization in [place] for balloon angioplasty of the left lower extremity on 03/17/2025. He has informed me that he has established visit with GI specialist in [place] however this will be in May 2025. Continues to follow with cardiology and has established a provider in [place]. He did undergo revascularization in [place] with a vascular surgeon at [facility] as stated above. Predebridement measurement: Healed Debridement was not performed as noted in the clinical panel above. Postdebridement measurement healed. There is continued reduction in size of ulceration at this visit with healed status achieved today. He has been approved for for advanced wound care product, EpiFix. Ulcerative site did undergo application of EpiFix graft #7 ([id number]) on 06/03/2025. No signs of infection at graft site. No graft was placed today as site healed. He was sent for radiograph 02/04/25 of the left foot [facility]. Radiograph demonstrates some air density projecting over the plantar soft tissues near the left heel region/plantar calcaneal spur. This could be potentially due to gas producing infection or recent penetrating injury. Close correlation with clinical exam findings recommended. Radiologist also states that if concern is for osteomyelitis MRI evaluation is recommended. I have independently reviewed the imaging and do concur with the radiographic read. He underwent MRI on 02/26/2025 of the left foot. Interpretation as large medial sided heel ulceration without soft tissue abscess. Minimal 1 cm area of calcaneal edema at the medial plantar fascia attachment. Cannot determine if reactive osteitis versus very early change of osteomyelitis. I have reviewed and discussed these images and findings with the patient. Due to possibility of osteomyelitis he was prescribed a course of oral doxycycline 100 mg twice daily x 6 weeks (stop date 04/15/2025). Rx gabapentin 100 mg 3 times daily x 30 days. 1 refill was given, however he reports this does not help him. OARS was checked. Rx oxycodone acetaminophen 5/325mg. 42 tablets were dispensed on 03/04/25. He is to take 1 tablet every 8 hours for his ulcerative pain. LEAS was ordered. LEAS demonstrate right DP waveform triphasic and PT waveform biphasic, right KESHIA 1.12, right PT indices 0.80, DP indices 0.80, right digital indices 0.52; left PT artery waveforms are monophasic and the left DP waveforms are monophasic, left KESHIA 1.17, l left PT indices 0.50, left DP indices 0.44, unable to obtain digital pressure. 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 Venous studies were negative for DVT. No evidence of reflux or valvular incompetence. He did see Dr. Batista on 02/19/25 to discuss vascular studies. They are re commending CTA abdominal pelvis with runoff to evaluate for atherosclerotic burden and determine interventional options pending recent kidney function lab. Vascular also awaiting further cardiology analysis and are refraining from initiation of Pletal at this time until status can be given. He is can to continue ASA daily. I did discuss with patient at length the need to follow with a vascular surgeon to reestablish blood flow to the lower extremity to aid in allowing for healing of this ulcerative site. I have also discussed the necessary need to follow-up with cardiology for intervention of his coronary artery disease which may likely require stent placing. I have also discussed the need to undergo diet modification and to take the necessary medications to aid in glycemic control to reduce his A1c from 14 to under 7. Discussed this is all necessary to aid in healing and for salvage of his lower extremity. I have discussed with him at length for failure to follow through on these will likely require an amputation of the lower extremity and possibly complicate more proximal amputation healing in addition to undue burden of stress on his heart which will likely lead to his passing. He voices understanding of this, however he has heard this from his PCP and has still not followed up as of 02/04/2025. He does report that he has now established cardiology visit and was seen 02/19/2025. Will follow-up with vascular as stated above. Discussed signs and symptoms of infection today. Discussed if he notices increasing redness around the ulcerative site that moves up the leg, purulent drainage from the wound site, increasing foul odor from the wound site, or if he experiences fever greater than 101 degree accompanied by nausea, vomiting, chills of these are signs of a progressing infection and he should report to the ED for IV antibiotics and for further evaluation. He voices understanding of this today. The following work up and care recommendations were made: Dressing: None Wash: Soap and water Tissue growth optimization: None Offload: Will wear surgical shoe at all times of ambulation Vascular: PVD, have ordered updated vascular studies awaiting results. Edema: None Infection: No signs of infection currently. Pain: May take [id number] Tylenol for pain Host factors: Noncompliance, CAD, PVD, uncontrolled DM type II, [employer] status ([employer]ism) all complicate healing. I answered all the patient's questions. To return to the wound healing center as needed or call sooner if the patient has any questions or concerns.
== END 2025-06-24 07:52 | disposition home or self-care (01) ==
LOC: WC 11:00
PROVIDERS: PCP Family Medicine; Referring Provider Family Medicine; Visit Provider Student in an Organized Health Care Education/Training Program
DX: E11.51 Type 2 diabetes mellitus with diabetic peripheral angiopathy without gangrene (principal); I70.244 Atherosclerosis of native arteries of left leg with ulceration of heel and midfoot; E11.621 Type 2 diabetes mellitus with foot ulcer; L97.422 Non-pressure chronic ulcer of left heel and midfoot with fat layer exposed; E11.42 Type 2 diabetes mellitus with diabetic polyneuropathy; Z79.4 Long term (current) use of insulin; Z91.198 Patient's noncompliance with other medical treatment and regimen for other reason; I25.10 Atherosclerotic heart disease of native coronary artery without angina pectoris; W20.8XXS Other cause of strike by thrown, projected or falling object, sequela; Z79.82 Long term (current) use of aspirin; Z79.84 Long term (current) use of oral hypoglycemic drugs; Z79.899 Other long term (current) drug therapy
CPT/HCPCS: 15275; 99213; Q4186; G0463